=== PATIENT | female | born 1935 | race Two or more races ===

== ENCOUNTER → 2022-08-15 | Outpatient (CLI) | payer MEDICARE ==
--- NOTE | 2022-08-15 14:01 | US ---
EXAMINATION TYPE: US carotid duplex BILAT DATE OF EXAM: 08/15/2022 COMPARISON: NONE CLINICAL HISTORY: Z86.73 PERSONAL HX TRANSIENT ISCHEMIC ATTACK. TECHNIQUE: Carotid duplex ultrasound examination. Indirect Doppler criteria was utilized. FINDINGS: EXAM MEASUREMENTS: RIGHT: Peak Systolic Velocity (PSV) cm/sec ----- Right CCA: 59.0 ----- Right ICA: 86.4 ----- Right ECA: 129 ICA/CCA ratio: 1.4 RIGHT: End Diastole cm/sec ----- Right CCA: 11.8 ----- Right ICA: 19.3 ----- Right ECA: 14.9 LEFT: Peak Systolic Velocity (PSV) cm/sec ----- Left CCA: 76.1 ----- Left ICA: 67.1 ----- Left ECA: 58.5 ICA/CCA ratio: 0.9 LEFT: End Diastole cm/sec ----- Left CCA: 11.9 ----- Left ICA: 13.4 ----- Left ECA: 11.8 VERTEBRALS (direction of flow): Right Vertebral: Antegrade Left Vertebral: Antegrade Rhythm: some arrhythmia noted during real time imaging Some intimal thickening carotid vessel duval is evident. Mild atherosclerotic changes, no significant stenosis. IMPRESSION: 1. Atheromatous plaquing without significant flow-limiting stenosis. Criteria for Assigning % of Stenosis / Diameter reduction (Estimation based on the indirect measurements of the internal carotid artery velocities (ICA PSV). 1. Normal (no stenosis)=ICA PSV < 125 cm/s: ratio < 2.0: ICA EDV<40 cm/s. 2. Less than 50% stenosis=ICA PSV < 125 cm/s: ratio < 2.0: ICA EDV<40 cm/s. 3. 50 to 69% stenosis=ICA PSV of 125 to 230 cm/s: ration 2.0 ? 4.0: ICA EDV 40-100 cm/s. 4. Greater than 70% stenosis to near occlusion= ICA PSV > 230 cm/s: ratio > 4.0: ICA EDV > 100 cm/s. 5. Near occlusion= ICA PSV velocities may be low or undetectable: variable ratio and ICA EDV. 6. Total occlusion=unable to detect flow.
== END | disposition home or self-care (01) ==
LOC: RADUSWWP 13:19
PROVIDERS: ATTEND Family Medicine
DX: I65.23 Occlusion and stenosis of bilateral carotid arteries (principal); Z86.73 Personal history of transient ischemic attack (TIA), and cerebral infarction without residual deficits
CPT/HCPCS: 93880

== ENCOUNTER → 2022-08-21 | Outpatient (CLI) | payer MEDICARE ==
--- NOTE | 2022-08-22 17:29 | MR ---
EXAMINATION TYPE: MR cervical spine wo con DATE OF EXAM: 08/21/2022 INDICATION: Patient age:Female; 87 years old; Reason for study: M54.12 RADICULOPATHY CERVICAL REGION; Neck pain into fingers COMPARISON: None. TECHNIQUE: Multi planar, multi sequence imaging was performed utilizing: T1-weighted, T2-weighted, an d turbo inversion recovery imaging of the cervical spine. IV Contrast: None FINDINGS: Alignment: The cervical vertebral bodies have preserved heights. Alignment is within normal limits gi jacqui patient positioning. Bones: Multilevel disc degeneration changes with Modic endplate changes and disc space narrowing. Fin dings are worse from C3 through C7. Cord: The spinal cord is unremarkable with regards to their signal intensity and morphology. Discs: Multilevel disc space narrowing and Modic endplate changes. C2-C3: No significant disc pathology. The spinal canal is patent. No neural foraminal stenosis. C3-C4: A disc osteophyte complex is present with mild spinal canal stenosis. Bilateral facet and unc overtebral joint arthropathy are present with mild bilateral neural foraminal stenosis. C4-C5: A disc osteophyte complex is present with moderate spinal canal stenosis. Bilateral facet and uncovertebral joint arthropathy are present with mild bilateral neural foraminal stenosis. C5-C6: A disc osteophyte complex is present with moderate to severe spinal canal stenosis. The disc o steophyte complex does impress upon the cord and displaces it posteriorly. Bilateral facet and uncov ertebral joint arthropathy are present with moderate right and mild left neural foraminal stenosis. C6-C7: A disc osteophyte complex is present with moderate spinal canal stenosis. The disc osteophyte complex does impress upon the cord and displaces it posteriorly No neural foraminal stenosis. C7-T1: No significant disc pathology. The spinal canal is patent. No neural foraminal stenosis. Other: Paranasal sinus mucosal thickening worse in the maxillary sinuses. IMPRESSION: 1. Multilevel disc osteophyte complexes with moderate to severe spinal canal stenosis C5-C6 secondar y to osteophyte impresses upon the spinal cord anteriorly. Cord signal is maintained. 2. Multilevel disc degeneration changes with scattered neural foraminal stenosis worse with moderate right and C5-C6. 3. Moderate paranasal sinus disease.
== END | disposition home or self-care (01) ==
LOC: RADMRIMAIN 12:45
PROVIDERS: ATTEND Physician Assistant Medical
DX: M50.122 Cervical disc disorder at C5-C6 level with radiculopathy (principal); M25.78 Osteophyte, vertebrae; M48.02 Spinal stenosis, cervical region; M99.71 Connective tissue and disc stenosis of intervertebral foramina of cervical region; J34.89 Other specified disorders of nose and nasal sinuses
CPT/HCPCS: 72141

== ENCOUNTER → 2023-03-27 | Outpatient (CLI) | payer MEDICARE ==
--- NOTE | 2023-03-27 15:16 | CT ---
EXAMINATION TYPE: CT brain nancy dior DATE OF EXAM: 03/27/2023 COMPARISON: None HISTORY: pain after fall x few days ago. CT DLP: 1371.30 mGycm, Automated exposure control for dose reduction was used. CONTRAST: Patient injected with 0 mL of Isovue 300. CT of the brain is performed utilizing 3 mm thick sections through the posterior fossa and 3 mm thick sections through the remaining calvarium. Study is performed within 24 hours of arrival to the hospital. No abnormal hyperdensity is present to suggest an acute intracranial hemorrhage. No mass lesion is evident. No acute infarcts are evident. There is mild periventricular white matter hypodensity, likely on the basis of chronic white matter ischemic changes. Ventricles and sulci are appropriate for the patient age. There is mucosal thickening through the right maxillary sinus. Mild mucosal thickenings in the marketing communications specialist ior medial left maxillary sinus. Sphenoid sinuses and ethmoid air cells and frontal sinuses are clear . Mastoid air cells are clear IMPRESSIONS: 1. Chronic appearing Periventricular white matter ischemic type changes. 2. No acute intracranial process. Follow-up exams can be performed as clinically indicated. CT cervical spine. COMPARISON: None CT of the cervical spine is performed in the axial plane at 2 mm thick sections. Reconstructed image s in the coronal, and sagittal plane are reviewed on the computer. No acute fractures are evident. Vertebral body alignment is normal. Advanced degenerative disc changes are present C4-5 through C6-7. Some vacuum disc phenomenon is pres ent at these levels. Anterior vertebral body spurring is present C3-C7. Small posterior endplate spur s are present C3-4 through C6-7 Vertebral body heights are preserved. Endplate spurring at C3-4 has mild anterior thecal sac compression. Mild thecal sac compression is pr esent C4-5 C5-6. Some uncovertebral joint hypertrophy is present with minimal foraminal narrowing on the left at C6-7 bilaterally C5-6 and on the left at C4-5 IMPRESSIONS: 1. Degenerative disc changes within the cervical spine. 2. Bilateral foraminal narrowing from uncovertebral joint opportunity discussed above
== END | disposition home or self-care (01) ==
LOC: RADCTMAIN 14:31
PROVIDERS: ATTEND Family Medicine
DX: I67.82 Cerebral ischemia (principal); M47.812 Spondylosis without myelopathy or radiculopathy, cervical region; M50.321 Other cervical disc degeneration at C4-C5 level; M99.71 Connective tissue and disc stenosis of intervertebral foramina of cervical region; M46.02 Spinal enthesopathy, cervical region; W19.XXXA Unspecified fall, initial encounter; R90.82 White matter disease, unspecified
CPT/HCPCS: 70450; 72125

== ENCOUNTER → 2023-04-09 | Outpatient (CLI) | payer MEDICARE ==
[2023-04-09 15:33] LABS: African American GFR (CKD) 60 (>60 ml/min/1.73 sqM); Blood Urea Nitrogen 16 mg/dL (7-17); Non-African American GFR(CKD) 52 (>60 ml/min/1.73 sqM)
--- NOTE | 2023-04-09 17:10 | CT ---
EXAMINATION TYPE: CT abdomen pelvis w con DATE OF EXAM: 04/09/2023 COMPARISON: None INDICATION: c/o constipation DLP: 362.8 mGycm, Automated exposure control for dose reduction was used. CONTRAST: 80cc mL of Isovue 300. Study performed with Oral Contrast TECHNIQUE: Axial images were obtained from above the diaphragm to the pubic rami in the axial plane a t 5 mm thick sections. Reconstructed images are reviewed on the computer in the coronal plane. FINDINGS: Limited CT sections are obtained the lung bases. The lung bases are clear. CT ABDOMEN: Liver: Normal Spleen: Normal Pancreas: Normal Adrenal glands: The adrenal glands are normal. Gallbladder: Normal Kidneys: No masses are evident. No hydronephrosis is present. No cysts are present. Delayed images were obtained through the kidneys, which remain unremarkable. Aorta: Vascular calcification is within the aorta. Inferior vena cava: Normal. CT PELVIS: There is a left inguinal hernia with loops of bowel involvement. No obstruction is evident . Mild fecal debris is within the colon. No changes to suggest obstruction or significant retention. Loops of bowel within the abdomen and pelvis are normal. There are loops of bowel which are incom pletely distended or lack oral contrast limiting their evaluation. Appendix: Not visualized. No dilated appendix or inflammatory changes identified. Urinary bladder: Normal. Genitourinary structures: Uterus and ovaries are not identified. Osseous structures: No suspicious lytic or sclerotic lesions. Scoliosis and degenerative disc changes are through the thoracolumbar spine. IMPRESSIONS: 1. No suspicious acute changes. 2. Small left inguinal hernia with involvement loops of bowel. These are nonobstructive at the time o f this examination.
== END | disposition home or self-care (01) ==
LOC: RADCTMAIN 14:50
PROVIDERS: ATTEND Family Medicine
DX: K40.90 Unilateral inguinal hernia, without obstruction or gangrene, not specified as recurrent (principal)
CPT/HCPCS: 82565; 84520; 74177; 36415; Q9967

== ENCOUNTER → 2023-09-03 | Outpatient (CLI) | payer MEDICARE ==
--- NOTE | 2023-09-03 12:27 | XR ---
EXAMINATION TYPE: XR chest 2V DATE OF EXAM: 09/03/2023 COMPARISON: 09/03/2023 TECHNIQUE: PA and lateral views submitted. HISTORY: Cough FINDINGS: The lungs are clear and there is no pneumothorax, pleural effusion, or focal pneumonia. Heart size normal and no overt failure. Osseous structures demonstrate hypertrophic and degenerative changes of the spine. Atherosclerotic change of aorta. Biapical pleural thickening. There is AC joint arthropathy. Underlyi ng COPD. Age-indeterminate compression deformities in the thoracic spine. Pleural-based apical calcif ication can be associated with inhalational disease\asbestos related disease. IMPRESSION: 1. No acute process. 2. COPD. Apical pleural calcifications can be associated with inhalational\asbestos-related disease.
== END | disposition home or self-care (01) ==
LOC: RADXRMAIN 11:58
PROVIDERS: ATTEND Family Medicine
DX: J44.9 Chronic obstructive pulmonary disease, unspecified (principal); J94.8 Other specified pleural conditions
CPT/HCPCS: 71046

== ENCOUNTER → 2024-06-24 | Outpatient (CLI) | payer MEDICARE | END | disposition home or self-care (01) | LOC: RADMRIMAIN 18:41 | PROVIDERS: ATTEND Family Medicine | DX: R41.82 Altered mental status, unspecified (principal) | CPT/HCPCS: 70553; A9585 ==

== ENCOUNTER 2024-11-07 11:10 | Inpatient (IN) | payer MEDICARE ==
--- NOTE | 2024-11-07 11:35 | ED ---
Fall HPI - General Chief Complaint: Fall Stated Complaint: Fall Time Seen by Provider: 11/07/24 11:35 Source: patient, EMS Mode of arrival: EMS - History of Present Illness Initial Comments: 89-year-old female presented the ER via EMS for evaluation of fall. Patient states she was attempted to get into her vehicle after going to [place] when she accidentally lost her balance. She states she frequently loses her balance. She states her right leg collapsed underneath her. She denies any head injury, loss of consciousness. Patient is on eliquis for atrial fibrillation. Patient states she is unable to move or bear weight on her right leg. She denies any paresthesias to this extremity. Patient denies any chest pain, shortness of breath, dizziness or lightheadedness prior to fall. No other injuries or complaints at this time. - Related Data Home Medications Medication Instructions Recorded Confirmed Apixaban [Eliquis] 5 mg PO BID 11/07/24 11/07/24 Atorvastatin [Lipitor] 20 mg PO DAILY 11/07/24 11/07/24 Furosemide [Lasix] 20 mg PO DAILY 11/07/24 11/07/24 Metoprolol Tartrate [Lopressor] 25 mg PO BID 11/07/24 11/07/24 amLODIPine [Norvasc] 2.5 mg PO DAILY 11/07/24 11/07/24 Allergies Allergy/AdvReac Type Severity Reaction Status Date / Time shellfish derived [Shellfish] Allergy Rash/Hives Verified 11/07/24 12:48 Review of Systems ROS Statement: Those systems with pertinent positive or pertinent negative responses have been documented in the HPI. ROS Other: All systems not noted in ROS Statement are negative. Past Medical History Past Medical History: Atrial Fibrillation, CVA/TIA, Skin Disorder Additional Past Medical History / Comment(s): WOUND RT FOOT,SWELLING RT LEG/FOOT,PVD History of Any Multi-Drug Resistant Organisms: None Reported Past Surgical History: Section, Hysterectomy Additional Past Surgical History / Comment(s): RLE vein Ablation 12-01-14 Past Anesthesia/Blood Transfusion Reactions: No Reported Reaction Past Psychological History: No Psychological Hx Reported Smoking Status: Never smoker Past Alcohol Use History: Occasional Past Drug Use History: None Reported - Past Family History Mother Additional Family Medical History / Comment(s): PVD General Exam Limitations: no limitations General appearance: alert, in no apparent distress Head exam: Present: atraumatic, normocephalic, normal inspection Eye exam: Present: normal appearance, PERRL, EOMI. Absent: scleral icterus, conjunctival injection, periorbital swelling Respiratory exam: Present: normal lung sounds bilaterally. Absent: respiratory distress, wheezes, rales, rhonchi, stridor Cardiovascular Exam: Present: tachycardia, irregular rhythm, normal heart sounds GI/Abdominal exam: Present: soft, normal bowel sounds. Absent: distended, tenderness, guarding, rebound, rigid Extremities exam: Present: normal capillary refill (2+ bilateral DP and radial pulses), other (Right lower extremity is shortened and externally rotated. Negative straight leg roll bilaterally.) Neurological exam: Present: alert, oriented X3, CN II-XII intact Skin exam: Present: warm, dry, intact, normal color. Absent: rash Course Vital Signs 11/07/24 11/07/24 11:11 12:44 Temperature 97.6 F Pulse Rate 118 H 117 H Respiratory 18 18 Rate Blood Pressure 176/90 161/97 O2 Sat by Pulse 96 97 Oximetry - Reevaluation(s) Reevaluation #1: 11/07/24 12:47 Case discussed with Ankur Chavira PA-C, he will make Dr. Tabares aware. Requesting admission to [facility] with medicine on consult. Medical Decision Making - Medical Decision Making Was pt. sent in by a medical professional or institution ([facility], [facility] [employer], urgent care, hospital, or penitentiary...) When possible be specific @ -No Did you speak to anyone other than the patient for history (EMS, parent, family, police, friend...)? What history was obtained from this source @ -No Did you review nursing and triage notes (agree or disagree)? Why? @ -I reviewed and agree with nursing and triage notes Were old charts reviewed (outside hosp., previous admission, EMS record, old EKG, old radiological studies, urgent care reports/EKG's, penitentiary records)? Report findings @ -No old charts were reviewed Differential Diagnosis (chest pain, altered mental status, abdominal pain women, abdominal pain men, vaginal bleeding, weakness, fever, dyspnea, syncope, headache, dizziness, GI bleed, back pain, seizure, CVA, palpatations, mental health, musculoskeletal)? @ -Fracture, dislocation, contusion, hematoma, intracranial hemorrhage, concussion, abrasion, laceration this list does not like to be all-inclusive EKG interpreted by me (3pts min.). @ -As above X-rays interpreted by me (1pt min.). @ -Right hip AP pelvis x-ray interpreted by me showing a right IT fracture. Right knee x-ray interpreted me negative for acute process. CXR interpreted remain negative for focal consolidations, pneumothorax or pleural effusions. CT interpreted by me (1pt min.). @ -None done U/S interpreted by me (1pt. min.). @ -None done What testing was considered but not performed or refused? (CT, X-rays, U/S, labs)? Why? @ -None What meds were considered but not given or refused? Why? @ -None Did you discuss the management of the patient with other professionals (professionals i.e. , [facility], [facility] [employer], lab, RT, psych nurse, social work nurse, developing machine operator, teacher, senior commercial loan officer, family independence case manager)? Give summary @ -Yes, case discussed with orthopedicsAnkur PA-C. Patient will be admitted under Ankur Koch states he will make him aware, with medicine on consult. Was smoking cessation discussed for >3mins.? @ -No Was critical care preformed (if so, how long)? @ -No Were there social determinants of health that impacted care today? How? (Homelessness, low income, unemployed, alcoholism, drug addiction, transportation, low edu. Level, literacy, decrease access to med. care, [facility], rehab)? @ -No Was there de-escalation of care discussed even if they declined (Discuss DNR or withdrawal of care, Hospice)? DNR status @ -No What co-morbidities impacted this encounter? (DM, HTN, Smoking, COPD, CAD, Cancer, CVA, ARF, Chemo, Hep., AIDS, mental health diagnosis, sleep apnea, morbid obesity)? @ -Atrial fibrillation, history of CVA Was patient admitted / discharged? Hospital course, mention meds given and route , prescriptions, significant lab abnormalities, going to OR and other pertinent info. @ -Admitted.89-year-old female presented to the ER via EMS for evaluation of a fall. Upon arrival, patient is tachycardic at 118 bpm vitals otherwise within the septal limits. Tachycardia likely related to pain. Right lower extremity is shortened and externally rotated. Patient is neurovascularly intact. Patient denying any other injuries or complaints. Workup in the ER remarkable for a right IT fracture. Findings discussed with orthopedics, Ankur Chavira PA-C. Patient will be admitted under Dr. Tabares, Ankur will notify him, with medicine on consult. Preoperative labsp ordered. Patient given tylenol, IV Dilaudid and Zofran for pain control in the emergency department. Maria catheter ordered. Medicine on consult. Patient agreeable for admission. Case discussed with ED attending, Dr. Hawkins. Undiagnosed new problem with uncertain prognosis? @ -No Drug Therapy requiring intensive monitoring for toxicity (Heparin, Nitro, Insulin, Cardizem)? @ -No Were any procedures done? @ -No Diagnosis/symptom? @ -Right IT fracture/Fall Acute, or Chronic, or Acute on Chronic? @ -Acute Uncomplicated (without systemic symptoms) or Complicated (systemic symptoms)? @ -Complicated Side effects of treatment? @ -No Exacerbation, Progression, or Severe Exacerbation? @ -No Poses a threat to life or bodily function? How? (Chest pain, USA, VA, pneumonia, PE, COPD, DKA, ARF, appy, cholecystitis, CVA, Diverticulitis, Homicidal, Suicidal, threat to staff... and all critical care pts) @ -Possibly - Lab Data Result diagrams: 11/07/24 12:33 11/07/24 12:33 Lab Results 11/07/24 11/07/24 11/07/24 Range/Units 12:33 12:33 12:33 WBC 7.2 (3.8-10.6) k/uL RBC 4.96 (3.80-5.40) m/uL Hgb 13.7 (11.4-16.0) gm/dL Hct 42.0 (34.0-46.0) % MCV 84.7 (80.0-100.0) fL MCH 27.5 (25.0-35.0) pg MCHC 32.5 (31.0-37.0) g/dL RDW 14.2 (11.5-15.5) % Plt Count 146 L (150-450) k/uL MPV 7.2 Neutrophils % 70 % Lymphocytes % 25 % Monocytes % 2 % Eosinophils % 1 % Basophils % 0 % Neutrophils # 5.1 (1.3-7.7) k/uL Lymphocytes # 1.8 (1.0-4.8) k/uL Monocytes # 0.2 (0-1.0) k/uL Eosinophils # 0.1 (0-0.7) k/uL Basophils # 0.0 (0-0.2) k/uL PT 11.6 (10.0-12.5) sec INR 1.1 (<1.2) APTT 24.5 (22.0-30.0) sec Sodium 129 L (137-145) mmol/L Potassium 4.0 (3.5-5.1) mmol/L Chloride 96 L (98-107) mmol/L Carbon Dioxide 25 (22-30) mmol/L Anion Gap 8 mmol/L BUN 13 (7-17) mg/dL Creatinine 0.49 L (0.52-1.04) mg/dL Est GFR (CKD-EPI)AfAm >90 (>60 ml/min/1.73 sqM) Est GFR (CKD-EPI)NonAf 87 (>60 ml/min/1.73 sqM) Glucose 186 H (74-99) mg/dL Calcium 8.8 (8.4-10.2) mg/dL Total Bilirubin 1.2 (0.2-1.3) mg/dL AST 45 H (14-36) U/L ALT 37 H (4-34) U/L Alkaline Phosphatase 89 (38-126) U/L Total Protein 6.9 (6.3-8.2) g/dL Albumin 4.3 (3.5-5.0) g/dL - EKG Data -: EKG Interpreted by [place] EKG Comments: EKG taken at 11: 21 showing atrial fibrillation with RVR. Ventricular rate 111, MA interval 97, QT/QTc 338/404. - Radiology Data Radiology results: report reviewed, image reviewed Disposition Clinical Impression: Fall, Intertrochanteric fracture of right femur Disposition: ADMITTED IP TO THIS [facility] Condition: Stable Referrals: Andres White MD [Primary Care Provider] - 1-2 days Time of Disposition: 12:46
[2024-11-07] MEDS: ACETAMINOPHEN TAB 325 MG TAB PO STA (11:57)
--- NOTE | 2024-11-07 12:07 | XR ---
EXAMINATION TYPE: XR chest 1V DATE OF EXAM: 11/07/2024 COMPARISON: Chest x-ray September 03, 2023 CLINICAL INDICATION: Female, 89 years old with history of Trauma from fall; pain TECHNIQUE: Single frontal view of the chest is obtained. FINDINGS: There is chronic parenchymal change without suspicious lesions focal air space opacity, pl eural effusion, or pneumothorax seen. Cardiomegaly is redemonstrated. Osseous structures are deminera lized. IMPRESSION: Cardiomegaly without acute pulmonary process. [facility], , 11/07/2024 12:05 PM
--- NOTE | 2024-11-07 12:08 | XR ---
EXAMINATION TYPE: XR knee limited RT DATE OF EXAM: 11/07/2024 CLINICAL INDICATION: Female, 89 years old with history of fall, pain TECHNIQUE: 2 views of the knee were obtained. COMPARISON: None. FINDINGS: There is no acute fracture/dislocation evident in the right knee. Moderate to severe trico mpartment joint space loss without significant spurring. The overlying soft tissue appears unremarka ble. Osseous structures are demineralized. IMPRESSION: There is no acute fracture or dislocation in the the right knee. [facility], , 11/07/2024 12:06 PM
--- NOTE | 2024-11-07 12:11 | XR ---
EXAMINATION TYPE: XR Hip RT and AP Pelvis DATE OF EXAM: 11/07/2024 CLINICAL INDICATION: Female, 89 years old with history of fall, hip pain. TECHNIQUE: A single AP view of the pelvis is obtained. Two views of the right hip are obtained. COMPARISON: CT abdomen and pelvis April 09, 2023 FINDINGS: Osseous structures are demineralized. There is acute displaced intertrochanteric fracture of the righ t hip. No hip joint dislocation. Visualized pelvis is intact. Scoliosis in the lumbar spine is partia lly imaged. IMPRESSION: There is acute displaced intertrochanteric fracture of the right hip. [facility], , 11/07/2024 12:08 PM
[2024-11-07] MEDS: ONDANSETRON 4 MG/2 ML VIAL IVP STA (12:40)
[2024-11-07] MEDS: HYDROmorphone 1 MG/ML 1 ML SYRINGE IVP STA (12:41)
[2024-11-07 12:43] LABS: Basophils % (A) 0 %; Eosinophils # (A) 0.1 k/uL (0-0.7); Eosinophils % (A) 1 %; HGB 13.7 gm/dL (11.4-16.0); Lymphocytes # (A) 1.8 k/uL (1.0-4.8); Lymphocytes % (A) 25 %; MCH 27.5 pg (25.0-35.0); MCHC 32.5 g/dL (31.0-37.0); MCV 84.7 fL (80.0-100.0); Mean Platelet Volume 7.2; Monocytes # (A) 0.2 k/uL (0-1.0); Monocytes % (A) 2 %; Neutrophils # (A) 5.1 k/uL (1.3-7.7); Neutrophils % (A) 70 %; Platelet Count 146 k/uL (150-450); RBC 4.96 m/uL (3.80-5.40); RDW 14.2 % (11.5-15.5); WBC 7.2 k/uL (3.8-10.6)
[2024-11-07] MEDS ORDERED: NALOXONE 0.4 MG/ML 1 ML VIAL IV PRN (12:44)
[2024-11-07] MEDS ORDERED: HYDROmorphone 1 MG/ML 1 ML SYRINGE IVP PRN (12:44)
[2024-11-07 12:51] LABS: INR 1.1 (<1.2); Partial Thromboplastin Time 24.5 sec (22.0-30.0); Prothrombin Time 11.6 sec (10.0-12.5)
[2024-11-07 13:01] LABS: ALT 37 U/L (4-34); AST 45 U/L (14-36); African American GFR (CKD) >90 (>60 ml/min/1.73 sqM); Albumin 4.3 g/dL (3.5-5.0); Alkaline Phosphatase 89 U/L (38-126); Anion Gap 8 mmol/L; Blood Urea Nitrogen 13 mg/dL (7-17); Calcium 8.8 mg/dL (8.4-10.2); Carbon Dioxide 25 mmol/L (22-30); Chloride 96 mmol/L (98-107); Glucose 186 mg/dL (74-99); Non-African American GFR(CKD) 87 (>60 ml/min/1.73 sqM); Sodium 129 mmol/L (137-145); Total Bilirubin 1.2 mg/dL (0.2-1.3); Total Protein 6.9 g/dL (6.3-8.2)
--- NOTE | 2024-11-07 13:22 | P.HPOR ---
History of Present Illness H&P Date: 11/07/24 Chief Complaint: Right hip fracture Patient is a 89-year-old female who presented to [facility] emergency room today after sustaining a fall while getting in her car after sabianist. After the fall, she was unable to get up or weight-bear, EMS to bring patient to the hospital. Patient underwent multiple imaging and lab test, was determined she had a displaced right intertrochanteric femur fracture. I was contacted by the emergency room staff regarding this patient. Patient was evaluated in the emergency room, she is resting pleasantly with her son at bedside. Patient cannot remove the exact details of the fall but was unable to weight-bear on the right lower extremity. She denies any previous surgery to her right lower extremity. She notes most of her discomfort in the hip region with range of motion. She denies any left lower extremity pain at this time. She denies any bilateral upper extremity pain at this time. She denies any headaches, lightheadedness, chest pain, shortness of breath, nausea or vomiting. Patient does have a history of A-fib, she is on Eliquis. She does follow with a local stuffer. Patient does live alone in a condo, she normally drives on a daily basis. Review of Systems Constitutional: Reports as per HPI Past Medical History Past Medical History: Atrial Fibrillation, CVA/TIA, Skin Disorder Additional Past Medical History / Comment(s): WOUND RT FOOT,SWELLING RT LEG/FOOT,PVD History of Any Multi-Drug Resistant Organisms: None Reported Past Surgical History: Section, Hysterectomy Additional Past Surgical History / Comment(s): RLE vein Ablation 12-01-14 Past Anesthesia/Blood Transfusion Reactions: No Reported Reaction Past Psychological History: No Psychological Hx Reported Smoking Status: Never smoker Past Alcohol Use History: Occasional Past Drug Use History: None Reported - Past Family History Mother Additional Family Medical History / Comment(s): PVD Medications and Allergies Home Medications Medication Instructions Recorded Confirmed Type Apixaban [Eliquis] 5 mg PO BID 11/07/24 11/07/24 History Atorvastatin [Lipitor] 20 mg PO DAILY 11/07/24 11/07/24 History Furosemide [Lasix] 20 mg PO DAILY 11/07/24 11/07/24 History Metoprolol Tartrate [Lopressor] 25 mg PO BID 11/07/24 11/07/24 History amLODIPine [Norvasc] 2.5 mg PO DAILY 11/07/24 11/07/24 History Allergies Allergy/AdvReac Type Severity Reaction Status Date / Time shellfish derived [Shellfish] Allergy Rash/Hives Verified 11/07/24 12:48 Physical Examination Right lower extremity: No obvious open lesions or sores are visualized throughout the extremity, there is some mild ecchymosis and swelling near the right proximal thigh Slight shortening and external rotation of the extremity is noted compared to t he contralateral side Patient demonstrates pain with palpation to the proximal right thigh, she is nontender surrounding the knee, lower leg, foot or ankle Logroll maneuver does reproduce discomfort to the groin, she is unable to straight leg raise. Plantarflexion, dorsiflexion, EHL, FHL are intact. Knee extension and flexion were not assessed due to pain in the hip Calf is soft, no tenderness with palpation Sensory exam to light touch is intact throughout the extremity Dorsalis pedis pulses 2+ Results - Labs Labs: Abnormal Lab Results - Last 24 Hours (Table) 11/07/24 11/07/24 Range/Units 12:33 12:33 Plt Count 146 L (150-450) k/uL Sodium 129 L (137-145) mmol/L Chloride 96 L (98-107) mmol/L Creatinine 0.49 L (0.52-1.04) mg/dL Glucose 186 H (74-99) mg/dL AST 45 H (14-36) U/L ALT 37 H (4-34) U/L H & H 11/07/24 Range/Units 12:33 Hgb 13.7 (11.4-16.0) gm/dL Hct 42.0 (34.0-46.0) % Coagulation 11/07/24 Range/Units 12:33 INR 1.1 (<1.2) Result Diagrams: 11/07/24 12:33 11/07/24 12:33 - Diagnostic results Hip x-ray: report reviewed, image reviewed (Pelvis x-ray along with right hip x- rays were reviewed, displaced right intertrochanteric femur fracture ) Knee x-ray: report reviewed, image reviewed (X-rays reviewed of the right knee, no acute fractures or dislocations appreciated) Assessment and Plan Assessment: Displaced right intertrochanteric femur fracture Status post fall from standing A-fib Other medical comorbidities Plan: I was able to discuss the case, this to include physical exam findings and imaging studies my attending Dr. Tabares. We would like to proceed with surgical intervention more specifically a right intramedullary nail for fixation. Would like to proceed with surgery on 11/08/2024. Risk and benefits of the procedure were discussed with the patient and family, this to include blood loss, development of blood clots, neurovascular injury, infection, inadequate healing of bone, need for further surgery, pain and stiffness. They are in good understanding would like to proceed. Consent will be obtained prior to procedure Pain control, multiple medications will be ordered both oral and IV as needed DVT prophylaxis, hold Eliquis at this time, will resume after surgery N.p.o. after midnight Urinary catheter placement Nonweightbearing right lower extremity Medical and cardiac recommendations appreciated PT/OT after surgery Further recommendations to follow Time with Patient: Less than 30
--- NOTE | 2024-11-07 15:53 | P.CONS ---
History of Present Illness - Reason for Consult Consult date: 11/07/24 Medical Management Requesting physician: Rodri Tabares - History of Present Illness History of Presenting Illness: Patient is a very pleasant 89-year-old female with a past medical history of chronic atrial fibrillation on anticoagulation with Eliquis 5 mg twice daily follows with pump operator Dr. 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 She presented to the emergency department after a fall. Patient reported that she was walking to her vehicle after chart and when walking down the curb to get into her car she lost her balance secondary to her "chronic drag" of her right leg resulting in her falling onto her right hip. Patient adamantly denies hitting her head or having any loss of consciousness. She denies having any dizziness, lightheadedness, chest pain, palpitations, or shortness of breath occurring before or after fall. She reports only injury is to right hip reporting pain throughout right hip and down entire right leg. She denies having any numbness or tingling and is able to wiggle her toes without difficulties. Upon arrival to our facility, patient underwent evaluation in the emergency department. Vital signs upon arrival show blood pressure 176/90, heart rate 118, respiratory rate 18, temp 97.6 F, and SpO2 of 96% on room air. EKG was completed showing atrial fibrillation with RVR to 111 bpm. Chest x-ray completed revealing cardiomegaly but negative for acute cardiopulmonary process. X-ray right knee negative for acute fracture or dislocation. X-ray right hip showing acute displaced intertrochanteric fracture of the right hip. Labs completed and reviewed. CBC showing mild thrombocytopenia with platelet count of 146 otherwise normal findings. Coagulation profile normal finding. BMP showing hyponatremic hypochloremia with sodium of 129 and chloride of 96 otherwise normal findings. Blood glucose was elevated at 186 patient was admitted under orthopedic surgery team and we were consulted for medical clearance and medical management throughout hospitalization and pump operator was consulted for cardiac clearance. Review of systems: Pertinent positives and negatives as discussed in HPI, a complete review of systems was performed and all other systems are negative. Physical exam: Vital signs reviewed and stable with the exception of mild hypertension and tachycardia. General: Nontoxic, no distress and appears stated age. Derm: Skin warm and dry, normal coloration for ethnicity. Head: Atraumatic, normocephalic and symmetric. Eyes: EOM's intact, no lid lag, and anicteric sclera Mouth: no lip lesions, mucus membranes moist Cardiovascular: Irregularly irregular rhythm, systolic murmur, positive posterior tibial pulses bilaterally, and cap refill < 2 seconds. Lungs: Respirations even, regular, and unlabored on room air. Lungs CTA bilater ally, no rhonchi, no rales, no wheezing, and no accessory muscle usage. Abdominal: soft, nontender to palpation, no guarding, no appreciable organomegaly Ext: No gross muscle atrophy, no edema, no contractures. Sensation intact. Patient with restricted movement of right lower extremity due to acute fracture, she remains able to wiggle toes and foot. She has positive right lower extremity shortening and lateral rotation. Bilateral lower extremities with venous stasis discoloration and multiple varicose veins. Neuro: Speech slightly slowed to response (reported chronic from previous CVA), face symmetrical and CN II-XII grossly intact with no noted focal neuro deficits Psych: Alert and oriented to person, place, time, and situation. Appropriate and pleasant affect. Assessment and Plan of Care: Preoperative clearance Acute displaced intertrochanteric fracture of right hip -RN communication order placed to request records from [facility] for Echocardiogram that pt reports was completed in office the end of August or beginning of September this year. -METS score greater than 4. Revised cardiac risk index score is 1 for history of CVA as patient denies history of CAD or previous IA, history of CHF, history of diabetes, or history of chronic kidney disease and renal function currently normal findings. -NSQIP surgical risk score calculated. Patient at below average risk for serious complications at 9.2% with average risk being 11.5%, below average risk for cardiac complication at 1.9% with average risk being 2.3%, average risk of at 3.4% with average risk of 3.6%. -Secondary to patient's age, current anticoagulant use and underlying comorbidities she is at an increased risk to undergo surgical intervention, however there are no absolute contraindications for patient to undergo urgent repair of her displaced intertrochanteric right hip fracture. Recommend obtaining records from [facility] for recent echocardiogram and cardiology was consulted by primary admitting team for cardiac clearance. Pending cardiac clearance and slight improvement of sodium level to goal of 130, patient medically optimized to undergo surgical repair at this time. 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 -Hold Eliquis secondary to impending surgical repair of right hip. Patient gi jacqui a one-time dose of metoprolol 25 mg p.o. as she did not take her morning medications and to resume cardiac medication regimen with amlodipine 2.5 mg daily, atorvastatin 20 mg daily, and metoprolol 25 mg twice daily. -Recommend resuming Eliquis after completion of surgery once cleared by primary admitting orthopedic surgery team to resume. -Patient will require continuous telemetry monitoring during preoperative, intraoperative, and postoperative period. Hypochloremic hyponatremia -Patient reports taking Lasix for her peripheral vascular disease which is currently held at this time and patient placed on gentle IV fluid hydration with 0.9% normal saline at 50 cc/h. Acutely displaced intertrochanteric fracture of right hip -Strict bedrest, activity to be advanced after completion of surgical procedure as indicated by primary admitting orthopedic surgery team. -Insert Maria catheter for required immobilization needed for pending surgery. -Symptomatic care and pain management with Tylenol 650 mg every 6 hours as needed for mild pain, Pendroy 5/325 mg tablets every 6 hours as needed for moderate pain, and Dilaudid 0.5 mg every 4 hours as needed for severe pain. -Continue Zofran 4 mg IVP every 8 hours as needed for nausea or vomiting Data and imaging reviewed: As stated above in HPI Thank you for allowing us to participate in the care of this pleasant patient. Do not hesitate to contact us with questions. Someone can be reached from the [facility] hospitalist group all hours of the day at [phone] or via [employer]. Patient was seen independently by Nurse Practitioner. This document was prepared using [employer] dictation software. Please allow for errors in assistant media planner while rare they do occur. Sagar Mina NP rendered care for this patient independently, reviewed the findings and plan as documented in the note above and agree with plan. I did not physically speak with or examine the patient on this date. Past Medical History Past Medical History: Atrial Fibrillation, CVA/TIA, Skin Disorder Additional Past Medical History / Comment(s): WOUND RT FOOT,SWELLING RT LEG/FOOT,PVD History of Any Multi-Drug Resistant Organisms: None Reported Past Surgical History: Section, Hysterectomy Additional Past Surgical History / Comment(s): RLE vein Ablation 12-01-14 Past Anesthesia/Blood Transfusion Reactions: No Reported Reaction Past Psychological History: No Psychological Hx Reported Smoking Status: Never smoker Past Alcohol Use History: Occasional Past Drug Use History: None Reported - Past Family History Mother Additional Family Medical History / Comment(s): PVD Medications and Allergies Home Medications Medication Instructions Recorded Confirmed Type Apixaban [Eliquis] 5 mg PO BID 11/07/24 11/07/24 History Atorvastatin [Lipitor] 20 mg PO DAILY 11/07/24 11/07/24 History Furosemide [Lasix] 20 mg PO DAILY 11/07/24 11/07/24 History Metoprolol Tartrate [Lopressor] 25 mg PO BID 11/07/24 11/07/24 History amLODIPine [Norvasc] 2.5 mg PO DAILY 11/07/24 11/07/24 History Allergies Allergy/AdvReac Type Severity Reaction Status Date / Time shellfish derived [Shellfish] Allergy Rash/Hives Verified 11/07/24 12:48 Physical Exam Vitals: Vital Signs Temp Pulse Resp BP Pulse Ox 11/07/24 14:00 99.2 F 104 H 18 134/82 92 L 11/07/24 12:44 117 H 18 161/97 97 11/07/24 11:11 97.6 F 118 H 18 176/90 96 Intake and Output 11/07/24 11/07/24 11/07/24 06:59 14:59 22:59 Other: Weight 52.163 kg Results CBC & Chem 7: 11/07/24 12:33 11/07/24 12:33 Labs: Abnormal Lab Results - Last 24 Hours (Table) 11/07/24 11/07/24 Range/Units 12:33 12:33 Plt Count 146 L (150-450) k/uL Sodium 129 L (137-145) mmol/L Chloride 96 L (98-107) mmol/L Creatinine 0.49 L (0.52-1.04) mg/dL Glucose 186 H (74-99) mg/dL AST 45 H (14-36) U/L ALT 37 H (4-34) U/L
[2024-11-07] MEDS: METOPROLOL TARTRATE 25 MG TAB PO STA (16:11)
[2024-11-07] MEDS: SODIUM CHLORIDE 0.9% 1,000 ML IV SCH (16:42)
[2024-11-07] MEDS ORDERED: DEXTROSE 50% SYRINGE 50 ML IVP PRN ×2 (17:11)
[2024-11-07] MEDS: HYDROmorphone 0.5 MG/0.5 ML SYRINGE IVP PRN (20:12)
[2024-11-07] MEDS: METOPROLOL TARTRATE 25 MG TAB PO SCH (20:12)
[2024-11-08 00:19] LABS: Glucose,Whole Blood 128 mg/dL (70-110)
[2024-11-08] MEDS: HYDROcodone/APAP 7.5-325MG 1 EACH TAB PO PRN (02:19)
[2024-11-08 06:16] LABS: Glucose,Whole Blood 106 mg/dL (70-110)
--- NOTE | 2024-11-08 07:05 | XR ---
EXAMINATION TYPE: XR chest 1V portable DATE OF EXAM: 11/08/2024 6:49 AM COMPARISON: Chest radiographs from 11/07/2024 CLINICAL INDICATION: Female, 89 years old with history of cough; TECHNIQUE: XR chest 1V portable Frontal view of the chest. FINDINGS: Lungs/Pleura: Scattered subtle reticular and hazy opacities. No evidence of pneumothorax, focal conso lidation or pleural effusion. Pulmonary vascularity: Unremarkable. Heart/mediastinum: Cardiomediastinal silhouette is unremarkable. Atherosclerotic calcifications are seen in the aorta. Musculoskeletal: No acute osseous pathology. Other findings: No IMPRESSION: Subtle scattered opacities which may represent an atypical pneumonia. Correlate for covid 19. [facility], , 11/08/2024 7:02 AM
[2024-11-08 08:38] LABS: HCT 32.3 % (37.2-46.3); HGB 10.7 g/dL (12.0-15.0); MCH 28.1 pg (27.0-32.0); MCHC 33.1 g/dL (32.0-37.0); MCV 84.8 FL (80.0-97.0); Mean Platelet Volume 10.1 FL (9.5-12.2); NRBC Per 100 WBC 0 X 10*3/uL (0.00-0.01); Platelet Count 131 X 10*3/uL (140-440); RBC 3.81 X 10*6/uL (4.10-5.20); RDW 14.8 % (11.5-14.5); WBC 6.72 X 10*3/uL (4.50-10.00)
--- NOTE | 2024-11-08 08:41 | P.CRDCN ---
History of Present Illness History of present illness: HISTORY OF PRESENT ILLNESS: This is a 89-year-old female with a past medical history significant for atrial fibrillation, mitral regurgitation, and hypertension. Patient follows in the of [facility] with Dr. Mcgraw. We have been asked to see the patient in consultation for cardiac clearance. Patient examined at the bedside. Patient was going to synagogue yesterday when she lost her balance trying to get out of her car and fell. She denies any syncope. Denies chest pain or pressure. Denied having any shortness of breath. The patient was found to have right hip fracture and is scheduled to undergo surgical intervention this afternoon. The patient does report feeling congested this morning. She was also febrile with a temperature of 100.1 F. DIAGNOSTICS: - EKG reveals A-fib with RVR. - Chest xray subtle scattered opacities which may represent atypical pneumonia - Laboratory data: WBC 7.2. Hemoglobin 13.7. Platelet count 146. Sodium 129. Potassium 4.0. BUN 13. Creatinine 0.49. - Current home cardiac medications include Eliquis 5 mg twice a day, Lipitor 20 mg daily, metoprolol tartrate 25 mg twice a day, amlodipine 2.5 mg daily, and Lasix 20 mg daily. - Most recent echocardiogram obtained in the office in March 2024 revealed ejection fraction 55 to 60%, mild aortic regurgitation, moderate MR, moderate TR - Patient underwent Lexiscan stress test in November 2021 which was negative for ischemia REVIEW OF SYSTEMS: At the time of my exam: CONSTITUTIONAL: Denies fever or chills. HEENT: Denies blurred vision, vision changes, or eye pain. Denies hemoptysis CARDIOVASCULAR: Denies chest pain. Denies orthopnea. Denies PND. Denies palpitations RESPIRATORY: Denies shortness of breath. GASTROINTESTINAL: Denies abdominal pain. Denies nausea or vomiting. HEMATOLOGIC: Denies bleeding disorders. GENITOURINARY: Denies any blood in urine. SKIN: Denies pruitis. Denies rash. PHYSICAL EXAM: VITAL SIGNS: Reviewed. GENERAL: Well-developed in no acute distress. HEENT: Head is normocephalic. Pupils are equal, round. Sclerae anicteric. Mucous membranes of the mouth are moist. Neck supple. No JVD or thyromegaly LUNGS: Respirations even and unlabored. Lungs with bilateral wheezing noted HEART: Mildly tachycardic. Irregular rate and rhythm. S1 and S2 heard. Systolic murmur noted at the apex ABDOMEN: Soft. Nondistended. Nontender. EXTREMITIES: Normal range of motion. No clubbing or cyanosis. Peripheral pulses intact. No lower extremity edema NEUROLOGIC: Awake and alert. Oriented x 3. ASSESSMENT: Right hip fracture, status post mechanical fall Persistent atrial fibrillation Moderate mitral regurgitation Moderate tricuspid regurgitation History of hypertension Hyponatremia PLAN: No need to repeat echocardiogram as this was performed in the office in March 2024 Hold Eliquis due to pending surgical intervention Continue metoprolol. Increase dosage to 50 mg twice a day for optimal heart rate control Check patient for COVID, RSV, and influenza There are no absolute contraindications for patient to proceed with surgery from a cardiac standpoint Further recommendations pending patient course Nurse practitioner note has been reviewed by physician. Signing provider agrees with the documented findings, assessment, and plan of care documented by CONTRACT GRAPHIC DESIGNER as a scribe. Past Medical History Past Medical History: Atrial Fibrillation, CVA/TIA, Skin Disorder Additional Past Medical History / Comment(s): WOUND RT FOOT,SWELLING RT LEG/FOOT,PVD History of Any Multi-Drug Resistant Organisms: None Reported Past Surgical History: Section, Hysterectomy Additional Past Surgical History / Comment(s): RLE vein Ablation 12-01-14 Past Anesthesia/Blood Transfusion Reactions: No Reported Reaction Past Psychological History: No Psychological Hx Reported Smoking Status: Never smoker Past Alcohol Use History: Occasional Past Drug Use History: None Reported - Past Family History Mother Additional Family Medical History / Comment(s): PVD Medications and Allergies Home Medications Medication Instructions Recorded Confirmed Type Apixaban [Eliquis] 5 mg PO BID 11/07/24 11/07/24 History Atorvastatin [Lipitor] 20 mg PO DAILY 11/07/24 11/07/24 History Furosemide [Lasix] 20 mg PO DAILY 11/07/24 11/07/24 History Metoprolol Tartrate [Lopressor] 25 mg PO BID 11/07/24 11/07/24 History amLODIPine [Norvasc] 2.5 mg PO DAILY 11/07/24 11/07/24 History Allergies Allergy/AdvReac Type Severity Reaction Status Date / Time shellfish derived [Shellfish] Allergy Rash/Hives Verified 11/07/24 12:48 Physical Exam Vitals: Vital Signs Temp Pulse Pulse Resp BP BP Pulse Ox 11/08/24 01:57 100.1 F H 114 H 18 143/71 90 L 11/07/24 19:41 99.8 F H 105 H 16 152/80 93 L 11/07/24 14:48 98.9 F 125 H 18 164/89 98 11/07/24 14:00 99.2 F 104 H 18 134/82 92 L 11/07/24 12:44 117 H 18 161/97 97 11/07/24 11:11 97.6 F 118 H 18 176/90 96 Intake and Output 11/07/24 11/08/24 11/08/24 22:59 06:59 14:59 Output Total 700 700 Balance -700 -700 Output: Urine 700 700 Other: Voiding Method Indwelling Catheter Results 11/07/24 12:33 11/07/24 12:33 Cardiac Enzymes 11/07/24 Range/Units 12:33 AST 45 H (14-36) U/L Coagulation 11/07/24 Range/Units 12:33 PT 11.6 (10.0-12.5) sec APTT 24.5 (22.0-30.0) sec CBC 11/07/24 Range/Units 12:33 WBC 7.2 (3.8-10.6) k/uL RBC 4.96 (3.80-5.40) m/uL Hgb 13.7 (11.4-16.0) gm/dL Hct 42.0 (34.0-46.0) % Plt Count 146 L (150-450) k/uL Comprehensive Metabolic Panel 11/07/24 Range/Units 12:33 Sodium 129 L (137-145) mmol/L Potassium 4.0 (3.5-5.1) mmol/L Chloride 96 L (98-107) mmol/L Carbon Dioxide 25 (22-30) mmol/L BUN 13 (7-17) mg/dL Creatinine 0.49 L (0.52-1.04) mg/dL Glucose 186 H (74-99) mg/dL Calcium 8.8 (8.4-10.2) mg/dL AST 45 H (14-36) U/L ALT 37 H (4-34) U/L Alkaline Phosphatase 89 (38-126) U/L Total Protein 6.9 (6.3-8.2) g/dL Albumin 4.3 (3.5-5.0) g/dL Current Medications Generic Name Dose Route Start Last Admin Trade Name Freq PRN Reason Stop Dose Admin Acetaminophen 650 mg 11/07/24 12:44 Acetaminophen Tab 325 Mg Tab PO Q6HR PRN Mild Pain or Fever > 100.5 Acetaminophen/Codeine Phosphate 1 each 11/07/24 13:23 Acetaminophen-Codeine 300-30mg Tab PO Q6HR PRN Pain Scale 3 To 5 Hydrocodone Bitart/Acetaminophen 1 each 11/07/24 13:22 Hydrocodone/Apap 5-325mg 1 Each Tab PO Q6HR PRN Pain Scale 6-8 Hydrocodone Bitart/Acetaminophen 1 each 11/07/24 13:22 11/08/24 02:19 Hydrocodone/Apap 7.5-325mg 1 Each Tab PO 1 each Q6HR PRN Administration Pain Scale 9-10 Amlodipine Besylate 2.5 mg 11/08/24 09:00 Amlodipine 2.5 Mg Tab PO DAILY [facility] Atorvastatin Calcium 20 mg 11/08/24 09:00 Atorvastatin 20 Mg Tab PO DAILY [facility] Cyclobenzaprine HCl 5 mg 11/07/24 13:23 Cyclobenzaprine 5 Mg Tab PO BID PRN Muscle Spasm Dextrose/Water 25 ml 11/07/24 17:11 Dextrose 50% Syringe 50 Ml IVP PER PROTOCOL PRN Hypoglycemia Protocol Dextrose/Water 50 ml 11/07/24 17:11 Dextrose 50% Syringe 50 Ml IVP PER PROTOCOL PRN Hypoglycemia Protocol Hydromorphone HCl 0.5 mg 11/07/24 13:24 11/08/24 00:12 Hydromorphone 0.5 Mg/0.5 Ml Syringe IVP 0.5 mg Q4HR PRN Administration Severe Pain (Scale 7 to 10) Sodium Chloride 1,000 mls @ 50 mls/hr 11/07/24 12:45 11/07/24 16:42 Saline 0.9% IV 50 mls/hr .Q20H [facility] Administration Metoprolol Tartrate 50 mg 11/08/24 09:00 Metoprolol Tartrate 50 Mg Tab PO BID [facility] Naloxone HCl 0.2 mg 11/07/24 12:44 Naloxone 0.4 Mg/Ml 1 Ml Vial IV Q2M PRN Opioid Reversal Ondansetron HCl 4 mg 11/07/24 12:44 Ondansetron 4 Mg/2 Ml Vial IVP Q8HR PRN Nausea And Vomiting Senna/Docusate Sodium 1 each 11/08/24 09:00 Sennosides-Docusate Sodium 1 Each Tab PO DAILY [facility] Intake and Output 11/07/24 11/08/24 11/08/24 22:59 06:59 14:59 Output Total 700 700 Balance -700 -700 Output: Urine 700 700 Other: Voiding Method Indwelling Catheter 11/07/24 12:33 11/07/24 12:33
[2024-11-08] MEDS: amLODIPine 2.5 MG TAB PO SCH (08:53)
[2024-11-08] MEDS: METOPROLOL TARTRATE 50 MG TAB PO SCH (08:54)
[2024-11-08] MEDS ORDERED: FUROSEMIDE 20 MG TAB PO SCH (09:00)
[2024-11-08 09:28] LABS: ALT 29 U/L (8-44); AST 37 U/L (13-35); Albumin 3.5 g/dL (3.8-4.9); Albumin/Globulin Ratio 2.19 Ratio (1.60-3.17); Alkaline Phosphatase 80 U/L (41-126); Blood Urea Nitrogen 9.3 mg/dL (9.0-27.0); Calcium 7.9 mg/dL (8.7-10.3); Carbon Dioxide 21.8 mmol/L (21.6-31.8); Chloride 98 mmol/L (96-109); Globulin 1.6 g/dL (1.6-3.3); Glucose 116 mg/dL (70-110); Magnesium 1.7 mg/dL (1.5-2.4); Potassium 3.8 mmol/L (3.5-5.5); Sodium 128 mmol/L (135-145); Total Bilirubin 0.7 mg/dL (0.3-1.2); Total Protein 5.1 g/dL (6.2-8.2)
[2024-11-08 09:55] LABS: Influenza A Not Detected (Not Detectd); Influenza B Not Detected (Not Detectd); RSV Not Detected (Not Detectd)
--- NOTE | 2024-11-08 09:57 | P.PN ---
Subjective Progress Note Date: 11/08/24 Principal diagnosis: Displaced right intertrochanteric femur fracture Patient evaluated at bedside, she is resting comfortably in her hospital bed. Pain is controlled with current medications. She has been seen by both internal medicine and cardiology. Surgery is scheduled for later this afternoon. She will remain n.p.o. at this time Objective - Vital Signs Vital signs: Vital Signs Temp 98.7 F 11/08/24 06:50 Pulse 68 11/08/24 06:50 Resp 17 11/08/24 06:50 BP 127/67 11/08/24 06:50 Pulse Ox 93 L 11/08/24 06:50 FiO2 Intake & Output 11/07/24 11/08/24 11/08/24 18:59 06:59 18:59 Output Total 700 700 Balance -700 -700 Weight 52.163 kg Output: Urine 700 700 Other: Voiding Method Indwelling Catheter - Exam Right lower extremity: No obvious open lesions or sores are visualized throughout the extremity, there is some mild ecchymosis and swelling near the right proximal thigh Slight shortening and external rotation of the extremity is noted compared to the contralateral side Patient demonstrates pain with palpation to the proximal right thigh, she is nontender surrounding the knee, lower leg, foot or ankle Logroll maneuver does reproduce discomfort to the groin, she is unable to straight leg raise. Plantarflexion, dorsiflexion, EHL, FHL are intact. Knee extension and flexion were not assessed due to pain in the hip Calf is soft, no tenderness with palpation Sensory exam to light touch is intact throughout the extremity Dorsalis pedis pulses 2+ - Labs CBC & Chem 7: 11/08/24 03:26 11/08/24 03:26 Labs: Abnormal Lab Results - Last 24 Hours (Table) 11/07/24 11/07/24 11/08/24 Range/Units 12:33 12:33 00:18 RBC (4.10-5.20) X 10*6/uL Hgb (12.0-15.0) g/dL Hct (37.2-46.3) % RDW (11.5-14.5) % Plt Count 146 L (150-450) k/uL Sodium 129 L (137-145) mmol/L Chloride 96 L (98-107) mmol/L Creatinine 0.49 L (0.52-1.04) mg/dL Glucose 186 H (74-99) mg/dL POC Glucose (mg/dL) 128 H (70-110) mg/dL Calcium (8.7-10.3) mg/dL AST 45 H (14-36) U/L ALT 37 H (4-34) U/L Total Protein (6.2-8.2) g/dL Albumin (3.8-4.9) g/dL 11/08/24 11/08/24 Range/Units 03:26 03:26 RBC 3.81 L (4.10-5.20) X 10*6/uL Hgb 10.7 L (12.0-15.0) g/dL Hct 32.3 L (37.2-46.3) % RDW 14.8 H (11.5-14.5) % Plt Count 131 L (150-450) k/uL Sodium 128 L (137-145) mmol/L Chloride (98-107) mmol/L Creatinine 0.5 L (0.52-1.04) mg/dL Glucose 116 H (74-99) mg/dL POC Glucose (mg/dL) (70-110) mg/dL Calcium 7.9 L (8.7-10.3) mg/dL AST 37 H (14-36) U/L ALT (4-34) U/L Total Protein 5.1 L (6.2-8.2) g/dL Albumin 3.5 L (3.8-4.9) g/dL Assessment and Plan Assessment: Displaced right intertrochanteric femur fracture Status post fall from standing A-fib Other medical comorbidities Plan: Surgery will be later this afternoon Pain control, multiple medications will be ordered both oral and IV as needed DVT prophylaxis, hold Eliquis at this time, will resume after surgery N.p.o. after midnight Urinary catheter placement Nonweightbearing right lower extremity Medical and cardiac recommendations appreciated PT/OT after surgery Further recommendations to follow Time with Patient: Less than 30
[2024-11-08 11:41] LABS: Glucose,Whole Blood 115 mg/dL (70-110)
[2024-11-08] MEDS: ATORVASTATIN 20 MG TAB PO SCH (13:02)
[2024-11-08] MEDS: SENNOSIDES-DOCUSATE SODIUM 1 EACH TAB PO SCH (13:02)
[2024-11-08] MEDS: IV FLUID CONTINUATION 1,000 ML IV ONE (14:34)
[2024-11-08] MEDS: ONDANSETRON 4 MG/2 ML VIAL IVP PRN (15:06)
[2024-11-08] MEDS: DEXAMETHASONE SOD PHOSPHATE 4 MG/ML 1 ML VIAL IVP STA (15:07)
[2024-11-08] MEDS ORDERED: ROCURONIUM 10 MG/ML (5 ML VIAL) IV ONE (15:51)
[2024-11-08] MEDS ORDERED: MIDAZOLAM 2 MG/2 ML VIAL ONE (15:51)
[2024-11-08] MEDS ORDERED: LIDOCAINE 1% INJ 10MG/ML (20 ML MDV) ONE (15:51)
[2024-11-08] MEDS ORDERED: PHENYLEPHRINE-0.9% NACL SYG 1,000 MCG/10 ML SYRINGE ONE (15:51)
[2024-11-08] MEDS ORDERED: GLYCOPYRROLATE 0.2 MG/ML 2 ML VIAL ONE (15:51)
[2024-11-08] MEDS ORDERED: TRANEXAMIC 1,000 MG/100ML-NACL PREMIX BAG ONE (15:51)
[2024-11-08] MEDS ORDERED: NEOSTIGMINE 1 MG/ML 10 ML VIAL ONE (15:51)
[2024-11-08] MEDS ORDERED: KETAMINE HCL IN 0.9 % NACL 50 MG/5 ML SYRINGE ONE (15:51)
[2024-11-08] MEDS ORDERED: SUCCINYLCHOLINE CHLORIDE 200 MG/10 ML VIAL IV ONE (15:51)
[2024-11-08] MEDS ORDERED: fentaNYL (PF) 50 MCG/ML 2 ML AMP ONE (15:51)
[2024-11-08] MEDS ORDERED: PROPOFOL 10 MG/ML 20 ML VIAL IV ONE (15:51)
[2024-11-08] MEDS: LACTATED RINGERS 1,000 ML IV ONE (15:52)
[2024-11-08] MEDS: SODIUM CHLORIDE 0.9% 100 ML with ceFAZolin 1,000 MG IV ONE (15:56)
[2024-11-08] MEDS ORDERED: IPRATROPIUM-ALBUTEROL 3 ML NEB INHALATION PRN (15:58)
--- NOTE | 2024-11-08 16:02 | P.PN ---
Subjective Progress Note Date: 11/08/24 Hospital course: Patient is a very pleasant 89-year-old female with a past medical history of chronic atrial fibrillation on anticoagulation with Eliquis 5 mg twice daily follows with labor relations officer Dr. 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 She presented to the emergency department after a fall. Patient reported that she was walking to her vehicle after chart and when walking down the curb to get into her car she lost her balance secondary to her "chronic drag" of her right leg resulting in her falling onto her right hip. Patient adamantly denies hitting her head or having any loss of consciousness. She denies having any dizziness, lightheadedness, chest pain, palpitations, or shortness of breath occurring before or after fall. She reports only injury is to right hip reporting pain throughout right hip and down entire right leg. She denies having any numbness or tingling and is able to wiggle her toes without difficulties. Upon arrival to our facility, patient underwent evaluation in the emergency department. Vital signs upon arrival show blood pressure 176/90, heart rate 118, respiratory rate 18, temp 97.6 F, and SpO2 of 96% on room air. EKG was completed showing atrial fibrillation with RVR to 111 bpm. Chest x-ray completed revealing cardiomegaly but negative for acute cardiopulmonary process. X-ray right knee negative for acute fracture or dislocation. X-ray right hip showing acute displaced intertrochanteric fracture of the right hip. Labs completed and reviewed. CBC showing mild thrombocytopenia with platelet count of 146 otherwise normal findings. Coagulation profile normal finding. BMP showing hyponatremic hypochloremia with sodium of 129 and chloride of 96 otherwise normal findings. Blood glucose was elevated at 186 patient was admitted under orthopedic surgery team and we were consulted for medical clearance and medical management throughout hospitalization and labor relations officer was consulted for cardiac clearance. Physical exam: Patient seen full evaluated at bedside this morning. She reports moderate throbbing in right hip and down right leg otherwise denies any other complaints including headache, lightheadedness, dizziness, chest pain, palpitations, shortness of breath, or cough. She denies having any numbness in her extremities. Maria catheter in place. Vital signs reviewed and stable with the exception of mild hypertension and tachycardia. General: Nontoxic, no distress and appears stated age. Derm: Skin warm and dry, normal coloration for ethnicity. Head: Atraumatic, normocephalic and symmetric. Eyes: EOM's intact, no lid lag, and anicteric sclera Mouth: no lip lesions, mucus membranes moist Cardiovascular: Irregularly irregular rhythm, systolic murmur, positive posterior tibial pulses bilaterally, and cap refill < 2 seconds. Lungs: Respirations even, regular, and unlabored on room air. Lungs CTA bilaterally, no rhonchi, no rales, no wheezing, and no accessory muscle usage. Abdominal: soft, nontender to palpation, no guarding, no appreciable organomegaly Ext: No gross muscle atrophy, no edema, no contractures. Sensation intact. Patient with restricted movement of right lower extremity due to acute fracture, she remains able to wiggle toes and foot. She has positive right lower extremity shortening and lateral rotation. Bilateral lower extremities with ve nous stasis discoloration and multiple varicose veins. Neuro: Speech slightly slowed to response (reported chronic from previous CVA), face symmetrical and CN II-XII grossly intact with no noted focal neuro deficits Psych: Alert and oriented to person, place, time, and situation. Appropriate and pleasant affect. Assessment and Plan of Care: Preoperative clearance Acute displaced intertrochanteric fracture of right hip -METS score greater than 4. Revised cardiac risk index score is 1 for history of CVA as patient denies history of CAD or previous [place], history of CHF, history of diabetes, or history of chronic kidney disease and renal function currently normal findings. -NSQIP surgical risk score calculated. Patient at below average risk for serious complications at 9.2% with average risk being 11.5%, below average risk for cardiac complication at 1.9% with average risk being 2.3%, average risk of at 3.4% with average risk of 3.6%. -Secondary to patient's age, current anticoagulant use and underlying comorbidities she is at an increased risk to undergo surgical intervention, however there are no absolute contraindications for patient to undergo urgent repair of her displaced intertrochanteric right hip fracture. Discussed with cardiology WIREWORKER echocardiogram report from office showing a preserved EF of 55 to 60% with mild aortic regurgitation, moderate mitral regurgitation, and moderate tricuspid regurgitation. Cardiology clearing patient from their perspective to undergo surgical procedure and patient medically optimized to undergo surgical r epair at this time. 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 -Hold Eliquis secondary to impending surgical repair of right hip. Patient given a one-time dose of metoprolol 25 mg p.o. as she did not take her morning medications and to resume cardiac medication regimen with amlodipine 2.5 mg daily, atorvastatin 20 mg daily, and metoprolol 25 mg twice daily. -Recommend resuming Eliquis after completion of surgery once cleared by primary admitting orthopedic surgery team to resume. -Patient will require continuous telemetry monitoring during preoperative, intraoperative, and postoperative period. Hypochloremic hyponatremia -Patient reports taking Lasix for her peripheral vascular disease which is currently held at this time and patient placed on gentle IV fluid hydration with 0.9% normal saline at 50 cc/h. Acutely displaced intertrochanteric fracture of right hip -Strict bedrest, activity to be advanced after completion of surgical procedure as indicated by primary admitting orthopedic surgery team. -Insert Amria catheter for required immobilization needed for pending surgery. -Symptomatic care and pain management with Tylenol 650 mg every 6 hours as neede d for mild pain, [place] 5/325 mg tablets every 6 hours as needed for moderate pain, and Dilaudid 0.5 mg every 4 hours as needed for severe pain. -Continue Zofran 4 mg IVP every 8 hours as needed for nausea or vomiting Data and imaging reviewed: Morning labs reviewed. CBC showing bicytopenia with hemoglobin of 10.7, platelet count of 131, sodium of 128 and increased 0.9% normal saline to 100 cc/h. Blood glucose 116. Liver profile showing slightly elevated AST otherwise normal findings. Influenza A, influenza B, RSV, and COVID PCR negative. Vital signs reviewed. Blood pressure 127/87, heart rate 68, respiratory rate 17, temp 98.7 F, and SpO2 of 93% on room air. Patient did have slightly elevated temp overnight of 100.1 F. Thank you for allowing us to participate in the care of this pleasant patient. Do not hesitate to contact us with questions. Someone can be reached from the [facility] hospitalist group all hours of the day at [phone] or via perfect serve. Patient was seen independently by Nurse Practitioner. This document was prepared using [employer] dictation software. Please allow for errors in quality checker while rare they do occur. Sagar Mina WIREWORKER rendered care for this patient independently, reviewed the fin dings and plan as documented in the note above and agree with plan. I did not physically speak with or examine the patient on this date. Objective - Vital Signs Vital signs: Vital Signs Temp 100.1 F H 11/08/24 01:57 Pulse 114 H 11/08/24 01:57 Resp 18 11/08/24 01:57 BP 143/71 11/08/24 01:57 Pulse Ox 90 L 11/08/24 01:57 FiO2 Intake & Output 11/07/24 11/08/24 11/08/24 18:59 06:59 18:59 Output Total 700 700 Balance -700 -700 Weight 52.163 kg Output: Urine 700 700 Other: Voiding Method Indwelling Catheter - Labs CBC & Chem 7: 11/08/24 03:26 11/08/24 03:26 Labs: Abnormal Lab Results - Last 24 Hours (Table) 11/07/24 11/07/24 11/08/24 Range/Units 12:33 12:33 00:18 Plt Count 146 L (150-450) k/uL Sodium 129 L (137-145) mmol/L Chloride 96 L (98-107) mmol/L Creatinine 0.49 L (0.52-1.04) mg/dL Glucose 186 H (74-99) mg/dL POC Glucose (mg/dL) 128 H (70-110) mg/dL AST 45 H (14-36) U/L ALT 37 H (4-34) U/L
[2024-11-08] MEDS: ceFAZolin 1,000 MG in SODIUM CHLORIDE 0.9% 1,000 ML IRRIGATION ONE (16:23)
[2024-11-08] MEDS: IPRATROPIUM-ALBUTEROL 3 ML NEB INHALATION SCH (16:26)
[2024-11-08] MEDS ORDERED: MAGNESIUM HYDROXIDE 2,400 MG/30 ML CUP PO PRN (16:54)
[2024-11-08] MEDS ORDERED: NALOXONE 0.4 MG/ML 1 ML VIAL IV PRN (16:54)
--- NOTE | 2024-11-08 17:16 | P.OP ---
Date of Procedure: 11/08/24 Preoperative Diagnosis: Displaced right three-part intertrochanteric femur fracture Postoperative Diagnosis: Same Procedure(s) Performed: Trochanteric intramedullary nailing right three-part intertrochanteric femur fracture Implants: Alpha gamma 4 short 12 mm - 125 degree nail, 100 mm compression screw, 4.5 mm distal locking screw. Anesthesia: GETA Surgeon: Rodri Tabares Co Founder #1: Link Cochran Estimated Blood Loss (ml): 100 Pathology: none sent Condition: stable Disposition: PACU Indications for Procedure: The patient is an 89-year-old female who is a community ambulator presents after falling in her [employer] parking lot. Upon evaluation she was noted to have a displaced comminuted right three-part intertrochanteric femur fracture. A discussion of the risks and benefits of operative intervention was made with the patient and her family. They opted to proceed with surgery. Operative risks include infection, neurovascular injury, development of blood clots, possible development of nonunion, malunion, possible hardware failure, and possible need for subsequent procedures was discussed. Informed consent was obtained. Operative Findings: As below Description of Procedure: The patient was brought to the operating room, and after induction of general anesthesia was placed supine on the [place] table. The fracture was reduced with longitudinal traction and internal rotation of the right lower extremity. This was verified on the AP and lateral views with fluoroscopy. The right lower extremity was prepped and draped in normal fashion. A 10 cm incision was then made proximal to the greater trochanter. Skin was incised sharply. Subcutaneous tissues were divided sharply. Electrocautery is used for hemostasis. The gluteus gladis fascia was split in line with the skin incision. Blunt dissection was then made down to the level the greater trochanter. A starting awl was then placed in the medial tip of the greater trochanter verified with fluoroscopy. A ball-tipped guidewire was then inserted down the canal. Sequential canal reaming was performed up to 13.5 mm. Proximally it was taken up to 15.5 mm to the level of the lesser trochanter. A 12 mm short trochanteric nail was then gently inserted over the guidewire. This is taken to the appropriate depth. The guidewire was then removed. A threaded guidepin was then placed into the centercenter portion of the femoral head and neck to within 5 mm of the articular surface verified on the AP and lateral views. A triple reamer was used to a depth of 100 mm. A 100 mm compression scr ew was then gently inserted to the appropriate depth. The compression screw was inserted and was fully seated. There was good purchase. The traction was then released. The compression device was used to compress the fracture site. The distal static locking screw was placed utilizing the alignment jig. A 4.5 mm cortical screw the appropriate length was inserted. Good purchase was obtained. This was verified on the AP and lateral views. Final fluoroscopic view showed adequate reduction of the fracture and placement of the implant on both the AP and lateral views. The wounds were irrigated with normal saline. The fascia was closed with running 0 Vicryl suture. The subcutaneous tissues reapproximated interrupted 2-0 Vicryl sutures. The skin was reapproximated yolanda. A sterile dressing was applied. The patient was then awoken from general anesthesia and transferred recovery room in stable condition. Blood loss is estimated 100 cc. No complications were incurred. Sponge and needle counts were correct at the end the case. Link CAIN assisted in the major components of the case to include positioning, exposure, implantation, and closure.
--- NOTE | 2024-11-08 17:36 | FL ---
EXAMINATION TYPE: FL guidance operating room, XR Hip Complete RT DATE OF EXAM: 11/08/2024 4:59 PM COMPARISON: Pre Operative Images if available both CT/MRI or plain film CLINICAL INDICATION: Female, 89 years old with history of RIGHT HIP FX; TECHNIQUE: FL guidance operating room, XR Hip Complete RT, multiple fluoroscopic images provided for procedure. DAP: 1.6157 mGym2 Gycm2 uGym2 cGycm2 or equivalent. FINDINGS: Fluoroscopic images during internal fixation/arthroplasty demonstrate hardware in appropriate positio n. Hardware appears intact. No immediate complication identified. IMPRESSION: 1. No evidence for intraoperative complication. 2. Please see the operative/procedural note for further details. [facility], , 11/08/2024 5:34 PM
[2024-11-08 19:18] LABS: Basophils % (A) 0 %; Eosinophils % (A) 0 %; HCT 35.9 % (34.0-46.0); HGB 11.3 gm/dL (11.4-16.0); Lymphocytes # (A) 1.9 k/uL (1.0-4.8); Lymphocytes % (A) 23 %; MCH 27.3 pg (25.0-35.0); MCHC 31.3 g/dL (31.0-37.0); MCV 87.2 fL (80.0-100.0); Mean Platelet Volume 8.4; Monocytes # (A) 0.1 k/uL (0-1.0); Monocytes % (A) 2 %; Neutrophils # (A) 6.1 k/uL (1.3-7.7); Neutrophils % (A) 74 %; Platelet Count 121 k/uL (150-450); RBC 4.12 m/uL (3.80-5.40); RDW 14.3 % (11.5-15.5); WBC 8.2 k/uL (3.8-10.6)
[2024-11-09 00:01] LABS: Glucose,Whole Blood 158 mg/dL (70-110)
[2024-11-09 06:16] LABS: Glucose,Whole Blood 139 mg/dL (70-110)
[2024-11-09 08:15] LABS: HCT 28.8 % (37.2-46.3); HGB 9.7 g/dL (12.0-15.0); MCH 28.4 pg (27.0-32.0); MCHC 33.7 g/dL (32.0-37.0); MCV 84.5 FL (80.0-97.0); Mean Platelet Volume 10.2 FL (9.5-12.2); NRBC Per 100 WBC 0 X 10*3/uL (0.00-0.01); Platelet Count 125 X 10*3/uL (140-440); RBC 3.41 X 10*6/uL (4.10-5.20); RDW 14.8 % (11.5-14.5)
[2024-11-09 09:06] LABS: ALT 26 U/L (8-44); AST 39 U/L (13-35); Albumin 2.9 g/dL (3.8-4.9); Albumin/Globulin Ratio 1.53 Ratio (1.60-3.17); Alkaline Phosphatase 69 U/L (41-126); Blood Urea Nitrogen 10.9 mg/dL (9.0-27.0); Calcium 7.8 mg/dL (8.7-10.3); Carbon Dioxide 21.7 mmol/L (21.6-31.8); Chloride 101 mmol/L (96-109); Globulin 1.9 g/dL (1.6-3.3); Glucose 128 mg/dL (70-110); Magnesium 1.7 mg/dL (1.5-2.4); Potassium 4.3 mmol/L (3.5-5.5); Sodium 130 mmol/L (135-145); Total Bilirubin 0.5 mg/dL (0.3-1.2); Total Protein 4.8 g/dL (6.2-8.2)
--- NOTE | 2024-11-09 09:43 | P.PN ---
Subjective HISTORY OF PRESENT ILLNESS: This is a 89-year-old female with a past medical history significant for atrial fibrillation, mitral regurgitation, and hypertension. Patient follows in the office with Dr. Mcgraw. We have been asked to see the patient in consultation for cardiac clearance. Patient examined at the bedside. Patient was going to latter-day yesterday when she lost her balance trying to get out of her car and fell. She denies any syncope. Denies chest pain or pressure. Denied having any shortness of breath. The patient was found to have right hip fracture and is scheduled to undergo surgical intervention this afternoon. The patient does report feeling congested this morning. She was also febrile with a temperature of 100.1 F. DIAGNOSTICS: - EKG reveals A-fib with RVR. - Chest xray subtle scattered opacities which may represent atypical pneumonia - Laboratory data: WBC 7.2. Hemoglobin 13.7. Platelet count 146. Sodium 129. Potassium 4.0. BUN 13. Creatinine 0.49. - Current home cardiac medications include Eliquis 5 mg twice a day, Lipitor 20 mg daily, metoprolol tartrate 25 mg twice a day, amlodipine 2.5 mg daily, and Lasix 20 mg daily. - Most recent echocardiogram obtained in the office in March 2024 revealed ejection fraction 55 to 60%, mild aortic regurgitation, moderate MR, moderate TR - Patient underwent Lexiscan stress test in November 2021 which was negative for ischemia 11/09/2024 Patient is status post intramedullary nailing of right hip. Postop day #1. Patient examined Marielos at the bedside. Patient without complaints of chest pain or shortness of breath. She continues to report a cough which is bothersome to her today. Vital signs are stable. She has been resumed on anticoagulation. PHYSICAL EXAM: VITAL SIGNS: Reviewed. GENERAL: Well-developed in no acute distress. HEENT: Head is normocephalic. Pupils are equal, round. Sclerae anicteric. Mucous membranes of the mouth are moist. Neck supple. No JVD or thyromegaly LUNGS: Respirations even and unlabored. Lungs with bilateral wheezing noted HEART: Mildly tachycardic. Irregular rate and rhythm. S1 and S2 heard. Systolic murmur noted at the apex ABDOMEN: Soft. Nondistended. Nontender. EXTREMITIES: Normal range of motion. No clubbing or cyanosis. Peripheral pulses intact. No lower extremity edema NEUROLOGIC: Awake and alert. Oriented x 3. ASSESSMENT: Right hip fracture, status post mechanical fall Persistent atrial fibrillation Moderate mitral regurgitation Moderate tricuspid regurgitation History of hypertension Hyponatremia PLAN: No need to repeat echocardiogram as this was performed in the office in March 2024 Eliquis has been resumed today Continue current dose of metoprolol. Dose was increased yesterday to 50 mg twice a day Patient is currently stable from a cardiac standpoint Further recommendations pending patient course Nurse practitioner note has been reviewed by physician. Signing provider agrees with the documented findings, assessment, and plan of care documented by FOOD SAFETY TECHNICIAN as a scribe. Objective - Vital Signs Vital signs: Vital Signs Temp 98.2 F 11/09/24 07:39 Pulse 121 H 11/09/24 07:39 Resp 18 11/09/24 07:39 BP 152/76 11/09/24 07:39 Pulse Ox 98 11/09/24 09:03 FiO2 Intake & Output 11/08/24 11/09/24 11/09/24 18:59 06:59 18:59 Intake Total 751 Output Total 400 450 Balance 351 -450 Intake: IV 751 Output: Urine 350 450 Estimated Blood Loss 50 Other: Voiding Method Indwelling Catheter Indwelling Catheter - Labs CBC & Chem 7: 11/09/24 03:25 11/09/24 03:25 Labs: Abnormal Lab Results - Last 24 Hours (Table) 11/08/24 11/08/24 11/08/24 Range/Units 11:39 18:55 23:59 RBC (4.10-5.20) X 10*6/uL Hgb 11.3 L (11.4-16.0) gm/dL Hct (37.2-46.3) % RDW (11.5-14.5) % Plt Count 121 L (150-450) k/uL Sodium (135-145) mmol/L Creatinine (0.6-1.5) mg/dL BUN/Creatinine Ratio (12.00-20.00) Ratio Glucose (70-110) mg/dL POC Glucose (mg/dL) 115 H 158 H (70-110) mg/dL Calcium (8.7-10.3) mg/dL AST (13-35) U/L Total Protein (6.2-8.2) g/dL Albumin (3.8-4.9) g/dL Albumin/Globulin Ratio (1.60-3.17) Ratio 11/09/24 11/09/24 11/09/24 Range/Units 03:25 03:25 06:14 RBC 3.41 L (4.10-5.20) X 10*6/uL Hgb 9.7 L (11.4-16.0) gm/dL Hct 28.8 L (37.2-46.3) % RDW 14.8 H (11.5-14.5) % Plt Count 125 L (150-450) k/uL Sodium 130 L (135-145) mmol/L Creatinine 0.5 L (0.6-1.5) mg/dL BUN/Creatinine Ratio 21.80 H (12.00-20.00) Ratio Glucose 128 H (70-110) mg/dL POC Glucose (mg/dL) 139 H (70-110) mg/dL Calcium 7.8 L (8.7-10.3) mg/dL AST 39 H (13-35) U/L Total Protein 4.8 L (6.2-8.2) g/dL Albumin 2.9 L (3.8-4.9) g/dL Albumin/Globulin Ratio 1.53 L (1.60-3.17) Ratio
[2024-11-09] MEDS: APIXABAN 2.5 MG TABLET PO SCH (10:35)
[2024-11-09] MEDS: MAGNESIUM SULFATE-D5W PMX 1 GM in DEXTROSE/WATER 1 100ML.BAG IVPB SCH (10:38)
--- NOTE | 2024-11-09 11:01 | P.PN ---
Subjective Progress Note Date: 11/09/24 Principal diagnosis: Displaced right intertrochanteric femur fracture Patient evaluated at bedside, she is resting comfortably in her hospital bed. Pain is controlled with current medications. Physical therapy was just coming into the room to work with patient while was in there. Urinary catheter remains in place. Denies headaches, pain or shortness of breath Objective - Vital Signs Vital signs: Vital Signs Temp 98.2 F 11/09/24 07:39 Pulse 121 H 11/09/24 07:39 Resp 18 11/09/24 07:39 BP 152/76 11/09/24 07:39 Pulse Ox 98 11/09/24 09:03 FiO2 Intake & Output 11/08/24 11/09/24 11/09/24 18:59 06:59 18:59 Intake Total 751 Output Total 400 450 Balance 351 -450 Intake: IV 751 Output: Urine 350 450 Estimated Blood Loss 50 Other: Voiding Method Indwelling Catheter Indwelling Catheter - Exam Right lower extremity: Postop dressing is in good positioning condition Patient demonstrates pain with palpation to the proximal right thigh, she is nontender surrounding the knee, lower leg, foot or ankle Plantarflexion, dorsiflexion, EHL, FHL are intact. Calf is soft, no tenderness with palpation Sensory exam to light touch is intact throughout the extremity Dorsalis pedis pulses 2+ - Labs CBC & Chem 7: 11/09/24 03:25 11/09/24 03:25 Labs: Abnormal Lab Results - Last 24 Hours (Table) 11/08/24 11/08/24 11/08/24 Range/Units 11:39 18:55 23:59 RBC (4.10-5.20) X 10*6/uL Hgb 11.3 L (11.4-16.0) gm/dL Hct (37.2-46.3) % RDW (11.5-14.5) % Plt Count 121 L (150-450) k/uL Sodium (135-145) mmol/L Creatinine (0.6-1.5) mg/dL BUN/Creatinine Ratio (12.00-20.00) Ratio Glucose (70-110) mg/dL POC Glucose (mg/dL) 115 H 158 H (70-110) mg/dL Calcium (8.7-10.3) mg/dL AST (13-35) U/L Total Protein (6.2-8.2) g/dL Albumin (3.8-4.9) g/dL Albumin/Globulin Ratio (1.60-3.17) Ratio 11/09/24 11/09/24 11/09/24 Range/Units 03:25 03:25 06:14 RBC 3.41 L (4.10-5.20) X 10*6/uL Hgb 9.7 L (11.4-16.0) gm/dL Hct 28.8 L (37.2-46.3) % RDW 14.8 H (11.5-14.5) % Plt Count 125 L (150-450) k/uL Sodium 130 L (135-145) mmol/L Creatinine 0.5 L (0.6-1.5) mg/dL BUN/Creatinine Ratio 21.80 H (12.00-20.00) Ratio Glucose 128 H (70-110) mg/dL POC Glucose (mg/dL) 139 H (70-110) mg/dL Calcium 7.8 L (8.7-10.3) mg/dL AST 39 H (13-35) U/L Total Protein 4.8 L (6.2-8.2) g/dL Albumin 2.9 L (3.8-4.9) g/dL Albumin/Globulin Ratio 1.53 L (1.60-3.17) Ratio Assessment and Plan Assessment: Postoperative day #1 status post IM nail right intertrochanteric femur fracture Status post fall from standing A-fib Other medical comorbidities Plan: Pain control, multiple medications will be ordered both oral and IV as needed DVT prophylaxis, okay to resume Eliquis Regular diet DC urinary catheter, monitor for urinary retention Weight-bear as tolerated, walker at all times Medical and cardiac recommendations appreciated PT/OT recommendations appreciated Discharge planning: Planning for discharge to subacute rehab in the next 24-48 hours Time with Patient: Less than 30
[2024-11-09 11:33] LABS: Glucose,Whole Blood 233 mg/dL (70-110)
--- NOTE | 2024-11-09 15:30 | P.PN ---
Subjective Progress Note Date: 11/09/24 Hospital course: Patient is a very pleasant 89-year-old female with a past medical history of chronic atrial fibrillation on anticoagulation with Eliquis 5 mg twice daily follows with mold bunch trimmer Dr. 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 She presented to the emergency department after a fall. Patient reported that she was walking to her vehicle after chart and when walking down the curb to get into her car she lost her balance secondary to her "chronic drag" of her right leg resulting in her falling onto her right hip. Patient adamantly denies hitting her head or having any loss of consciousness. She denies having any dizziness, lightheadedness, chest pain, palpitations, or shortness of breath occurring before or after fall. She reports only injury is to right hip reporting pain throughout right hip and down entire right leg. She denies having any numbness or tingling and is able to wiggle her toes without difficulties. Upon arrival to our facility, patient underwent evaluation in the emergency department. Vital signs upon arrival show blood pressure 176/90, heart rate 118, respiratory rate 18, temp 97.6 F, and SpO2 of 96% on room air. EKG was completed showing atrial fibrillation with RVR to 111 bpm. Chest x-ray completed revealing cardiomegaly but negative for acute cardiopulmonary process. X-ray right knee negative for acute fracture or dislocation. X-ray right hip showing acute displaced intertrochanteric fracture of the right hip. Labs completed and reviewed. CBC showing mild thrombocytopenia with platelet count of 146 otherwise normal findings. Coagulation profile normal finding. BMP showing hyponatremic hypochloremia with sodium of 129 and chloride of 96 otherwise normal findings. Blood glucose was elevated at 186 patient was admitted under orthopedic surgery team and we were consulted for medical clearance and medical management throughout hospitalization and mold bunch trimmer was consulted for cardiac clearance. Physical exam: Patient seen full evaluated at bedside this morning. Maria catheter remains in place but patient was getting up to the chair and to the restroom with 2 person assist this morning. At time of examination patient does report moderate postoperative pain and states this is her first time getting up since completion of surgical procedure. Patient denies any other complaints at this time including nausea, vomiting, chest pain, palpitations, shortness of breath, or experiencing any numbness in her extremities. Vital signs reviewed and stable with the exception of mild hypertension and tachycardia. General: Nontoxic, no distress and appears stated age. Derm: Skin warm and dry, normal coloration for ethnicity. Head: Atraumatic, normocephalic and symmetric. Eyes: EOM's intact, no lid lag, and anicteric sclera Mouth: no lip lesions, mucus membranes moist Cardiovascular: Irregularly irregular rhythm, systolic murmur, positive posterior tibial pulses bilaterally, and cap refill < 2 seconds. Lungs: Respirations even, regular, and unlabored on room air. Lungs CTA bilaterally, no rhonchi, no rales, no wheezing, and no accessory muscle usage. Abdominal: soft, nontender to palpation, no guarding, no appreciable organomegaly Ext: No gross muscle atrophy, no edema, no contractures. Sensation intact. Patient with restricted movement of right lower extremity due to acute fracture, she remains able to wiggle toes and foot. She has positive right lower extre mity shortening and lateral rotation. Bilateral lower extremities with venous stasis discoloration and multiple varicose veins. Neuro: Speech slightly slowed to response (reported chronic from previous CVA), face symmetrical and CN II-XII grossly intact with no noted focal neuro deficits Psych: Alert and oriented to person, place, time, and situation. Appropriate and pleasant affect. Assessment and Plan of Care: Status post trochanteric intramedullary nailing of right three-part intertrochanteric femur fracture Acute displaced intertrochanteric fracture of right hip -Management per primary admitting orthopedic surgery team including DVT prophylaxis, pain management, wound/dressing management, weightbearing, and PT/OT. -Symptomatic care and pain management with Tylenol 650 mg every 6 hours as needed for mild pain, Neopit 5/325 mg tablets every 6 hours as needed for moderate pain, and Dilaudid 0.5 mg every 4 hours as needed for severe pain. -Continue Zofran 4 mg IVP every 8 hours as needed for nausea or vomiting Acute postoperative blood loss anemia and thrombocytopenia -Preoperative hemoglobin 11.3 and platelet count of 121 with postoperative hemoglobin of 9.7 and platelet count of 125. This is a stable and expected finding, no active bleeding, no need for transfusion or any further interventions at this time. 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 -Eliquis 2.5 mg twice daily was resumed today and patient to continue cardiac medication regimen with amlodipine 2.5 mg daily, atorvastatin 20 mg daily, and metoprolol 50 mg twice daily. -Patient will require continuous telemetry monitoring during preoperative, intraoperative, and postoperative period. -Cardiology following increasing metoprolol to 50 mg twice daily on 11/08/2024. Hypochloremic hyponatremia -Patient reports taking Lasix for her peripheral vascular disease which is currently held at this time and patient was provided with gentle IV fluid hydration with 0.9% normal saline resulting in sodium improving to 130. Data and imaging reviewed: Morning labs reviewed. CBC showing bicytopenia with hemoglobin of 9.7, platelet count of 125. BMP showing sodium of 130 Blood glucose 128. Liver profile showing slightly elevated AST of 39 otherwise normal findings. Vital signs reviewed. Blood pressure 152/76, heart rate 121, respiratory rate 18, temp 98.2 F, and SpO2 of 97% on 3 L. Thank you for allowing us to participate in the care of this pleasant patient. Do not hesitate to contact us with questions. Someone can be reached from the [facility] hospitalist group all hours of the day at [phone] or via perfect serve. Patient was seen independently by Nurse Practitioner. This document was prepared using [employer] dictation software. Please allow for errors in pond worker while rare they do occur. Sagar Mina NP rendered care for this patient independently, reviewed the findings and plan as documented in the note above and agree with plan. I did not physically speak with or examine the patient on this date. Objective - Vital Signs Vital signs: Vital Signs Temp 98.2 F 11/09/24 07:39 Pulse 121 H 11/09/24 07:39 Resp 18 11/09/24 07:39 BP 152/76 11/09/24 07:39 Pulse Ox 98 11/09/24 09:03 FiO2 Intake & Output 11/08/24 11/09/24 11/09/24 18:59 06:59 18:59 Intake Total 751 Output Total 400 450 Balance 351 -450 Intake: IV 751 Output: Urine 350 450 Estimated Blood Loss 50 Other: Voiding Method Indwelling Catheter Indwelling Catheter - Labs CBC & Chem 7: 11/09/24 03:25 11/09/24 03:25 Labs: Abnormal Lab Results - Last 24 Hours (Table) 11/08/24 11/08/24 11/08/24 Range/Units 03:26 11:39 18:55 RBC (4.10-5.20) X 10*6/uL Hgb 11.3 L (11.4-16.0) gm/dL Hct (37.2-46.3) % RDW (11.5-14.5) % Plt Count 121 L (150-450) k/uL Sodium 128 L (135-145) mmol/L Creatinine 0.5 L (0.6-1.5) mg/dL BUN/Creatinine Ratio (12.00-20.00) Ratio Glucose 116 H (70-110) mg/dL POC Glucose (mg/dL) 115 H (70-110) mg/dL Calcium 7.9 L (8.7-10.3) mg/dL AST 37 H (13-35) U/L Total Protein 5.1 L (6.2-8.2) g/dL Albumin 3.5 L (3.8-4.9) g/dL Albumin/Globulin Ratio (1.60-3.17) Ratio 11/08/24 11/09/24 11/09/24 Range/Units 23:59 03:25 03:25 RBC 3.41 L (4.10-5.20) X 10*6/uL Hgb 9.7 L (11.4-16.0) gm/dL Hct 28.8 L (37.2-46.3) % RDW 14.8 H (11.5-14.5) % Plt Count 125 L (150-450) k/uL Sodium 130 L (135-145) mmol/L Creatinine 0.5 L (0.6-1.5) mg/dL BUN/Creatinine Ratio 21.80 H (12.00-20.00) Ratio Glucose 128 H (70-110) mg/dL POC Glucose (mg/dL) 158 H (70-110) mg/dL Calcium 7.8 L (8.7-10.3) mg/dL AST 39 H (13-35) U/L Total Protein 4.8 L (6.2-8.2) g/dL Albumin 2.9 L (3.8-4.9) g/dL Albumin/Globulin Ratio 1.53 L (1.60-3.17) Ratio // Range/Units 06:14 RBC (4.10-5.20) X 10*6/uL Hgb (11.4-16.0) gm/dL Hct (37.2-46.3) % RDW (11.5-14.5) % Plt Count (150-450) k/uL Sodium (135-145) mmol/L Creatinine (0.6-1.5) mg/dL BUN/Creatinine Ratio (12.00-20.00) Ratio Glucose (70-110) mg/dL POC Glucose (mg/dL) 139 H (70-110) mg/dL Calcium (8.7-10.3) mg/dL AST (13-35) U/L Total Protein (6.2-8.2) g/dL Albumin (3.8-4.9) g/dL Albumin/Globulin Ratio (1.60-3.17) Ratio
[2024-11-09 16:48] LABS: Glucose,Whole Blood 90 mg/dL (70-110)
[2024-11-09 20:48] LABS: Glucose,Whole Blood 153 mg/dL (70-110)
[2024-11-10 02:05] LABS: Glucose,Whole Blood 119 mg/dL (70-110)
[2024-11-10] MEDS: ACETAMINOPHEN TAB 325 MG TAB PO PRN (02:25)
[2024-11-10 06:25] LABS: Glucose,Whole Blood 128 mg/dL (70-110)
[2024-11-10 08:41] LABS: ALT 26 U/L (8-44); AST 48 U/L (13-35); Albumin 2.9 g/dL (3.8-4.9); Albumin/Globulin Ratio 1.61 Ratio (1.60-3.17); Alkaline Phosphatase 71 U/L (41-126); Blood Urea Nitrogen 15.7 mg/dL (9.0-27.0); Calcium 7.5 mg/dL (8.7-10.3); Carbon Dioxide 21.6 mmol/L (21.6-31.8); Chloride 97 mmol/L (96-109); Globulin 1.8 g/dL (1.6-3.3); Glucose 112 mg/dL (70-110); Magnesium 1.7 mg/dL (1.5-2.4); Potassium 4.3 mmol/L (3.5-5.5); Sodium 126 mmol/L (135-145); Total Bilirubin 0.5 mg/dL (0.3-1.2); Total Protein 4.7 g/dL (6.2-8.2)
[2024-11-10 09:11] LABS: HCT 24.9 % (37.2-46.3); HGB 8.4 g/dL (12.0-15.0); MCH 28.1 pg (27.0-32.0); MCHC 33.7 g/dL (32.0-37.0); MCV 83.3 FL (80.0-97.0); Mean Platelet Volume 10.1 FL (9.5-12.2); NRBC Per 100 WBC 0 X 10*3/uL (0.00-0.01); Platelet Count 143 X 10*3/uL (140-440); RBC 2.99 X 10*6/uL (4.10-5.20); RDW 14.6 % (11.5-14.5); WBC 8.12 X 10*3/uL (4.50-10.00)
[2024-11-10] MEDS: Acetaminophen-Codeine 300-30mg TAB PO PRN (09:58)
--- NOTE | 2024-11-10 10:35 | P.PN ---
Subjective Progress Note Date: 11/10/24 Principal diagnosis: Displaced right intertrochanteric femur fracture Patient evaluated at bedside, she is resting comfortably in her hospital chair. Pain is controlled with current medications. Voiding trial at this time, discussed with nursing if she is unable to urinate placement urinary catheter with urology consult. Patient's anemia has continued to worsen daily since surgery. Patient's sodium continues to decrease also.. Denies headaches, pain or shortness of breath Objective - Vital Signs Vital signs: Vital Signs Temp 98.6 F 11/10/24 07:00 Pulse 105 H 11/10/24 09:36 Resp 17 11/10/24 09:36 BP 136/76 11/10/24 07:00 Pulse Ox 96 11/10/24 07:00 FiO2 Intake & Output 11/09/24 11/10/24 11/10/24 18:59 06:59 18:59 Intake Total 800 250 Output Total 320 890 Balance 480 -890 250 Intake: Oral 800 250 Output: Urine 320 400 Straight 400 Uretheral (Maria) 320 Urine/Stool Mix 490 Other: Voiding Method Indwelling Catheter - Exam Right lower extremity: Postop dressing is in good positioning condition Patient demonstrates pain with palpation to the proximal right thigh, she is nontender surrounding the knee, lower leg, foot or ankle Plantarflexion, dorsiflexion, EHL, FHL are intact. Calf is soft, no tenderness with palpation Sensory exam to light touch is intact throughout the extremity Dorsalis pedis pulses 2+ - Labs CBC & Chem 7: 11/10/24 05:40 11/10/24 05:40 Labs: Abnormal Lab Results - Last 24 Hours (Table) 11/09/24 11/09/24 11/10/24 Range/Units 11:32 20:47 02:03 RBC (4.10-5.20) X 10*6/uL Hgb (12.0-15.0) g/dL Hct (37.2-46.3) % RDW (11.5-14.5) % Sodium (135-145) mmol/L Creatinine (0.6-1.5) mg/dL BUN/Creatinine Ratio (12.00-20.00) Ratio Glucose (70-110) mg/dL POC Glucose (mg/dL) 233 H 153 H 119 H (70-110) mg/dL Calcium (8.7-10.3) mg/dL AST (13-35) U/L Total Protein (6.2-8.2) g/dL Albumin (3.8-4.9) g/dL 11/10/24 11/10/24 11/10/24 Range/Units 05:40 05:40 06:23 RBC 2.99 L (4.10-5.20) X 10*6/uL Hgb 8.4 L (12.0-15.0) g/dL Hct 24.9 L (37.2-46.3) % RDW 14.6 H (11.5-14.5) % Sodium 126 L (135-145) mmol/L Creatinine 0.5 L (0.6-1.5) mg/dL BUN/Creatinine Ratio 31.40 H (12.00-20.00) Ratio Glucose 112 H (70-110) mg/dL POC Glucose (mg/dL) 128 H (70-110) mg/dL Calcium 7.5 L (8.7-10.3) mg/dL AST 48 H (13-35) U/L Total Protein 4.7 L (6.2-8.2) g/dL Albumin 2.9 L (3.8-4.9) g/dL Assessment and Plan Assessment: Postoperative day #2 status post IM nail right intertrochanteric femur fracture Status post fall from standing Acute blood loss anemia, expected surgical outcome A-fib Other medical comorbidities Plan: Pain control, multiple medications will be ordered both oral and IV as needed DVT prophylaxis, okay to resume Eliquis. Discussed with nursing to have that conversation with cardiology and medicine regarding holding blood thinner based on her current hemoglobin. Regular diet Pending bladder trial, possible placement of urinary catheter and urology consult Ferrous sulfate 325 mg daily starting today, I also ordered 1 unit of packed RBCs for symptomatic anemia Weight-bear as tolerated, walker at all times Medical and cardiac recommendations appreciated PT/OT recommendations appreciated Discharge planning: medically patient is not fit for discharge to subacute rehab today, will continue to monitor, hopeful discharge in the next 24-48 hours Time with Patient: Less than 30
--- NOTE | 2024-11-10 11:38 | P.PN ---
Subjective HISTORY OF PRESENT ILLNESS: This is a 89-year-old female with a past medical history significant for atrial fibrillation, mitral regurgitation, and hypertension. Patient follows in the office with Dr. Mcgraw. We have been asked to see the patient in consultation for cardiac clearance. Patient examined at the bedside. Patient was going to mormonism yesterday when she lost her balance trying to get out of her car and fell. She denies any syncope. Denies chest pain or pressure. Denied having any shortness of breath. The patient was found to have right hip fracture and is scheduled to undergo surgical intervention this afternoon. The patient does report feeling congested this morning. She was also febrile with a temperature of 100.1 F. DIAGNOSTICS: - EKG reveals A-fib with RVR. - Chest xray subtle scattered opacities which may represent atypical pneumonia - Laboratory data: WBC 7.2. Hemoglobin 13.7. Platelet count 146. Sodium 129. Potassium 4.0. BUN 13. Creatinine 0.49. - Current home cardiac medications include Eliquis 5 mg twice a day, Lipitor 20 mg daily, metoprolol tartrate 25 mg twice a day, amlodipine 2.5 mg daily, and Lasix 20 mg daily. - Most recent echocardiogram obtained in the office in March 2024 revealed ejection fraction 55 to 60%, mild aortic regurgitation, moderate MR, moderate TR - Patient underwent Lexiscan stress test in November 2021 which was negative for ischemia 11/09/2024 Patient is status post intramedullary nailing of right hip. Postop day #1. Patient examined at the bedside. Patient without complaints of chest pain or shortness of breath. She continues to report a cough which is bothersome to her today. Vital signs are stable. She has been resumed on anticoagulation. 11/10/2024 Patient examined this morning at the bedside. Patient denies chest pain or pressure. She denies shortness of breath. Blood pressure stable. She remains in atrial fibrillation with heart rate around [id number]. PHYSICAL EXAM: VITAL SIGNS: Reviewed. GENERAL: Well-developed in no acute distress. HEENT: Head is normocephalic. Pupils are equal, round. Sclerae anicteric. Mucous membranes of the mouth are moist. Neck supple. No JVD or thyromegaly LUNGS: Respirations even and unlabored. Lungs with bilateral wheezing noted HEART: Mildly tachycardic. Irregular rate and rhythm. S1 and S2 heard. S ystolic murmur noted at the apex ABDOMEN: Soft. Nondistended. Nontender. EXTREMITIES: Normal range of motion. No clubbing or cyanosis. Peripheral pulses intact. No lower extremity edema NEUROLOGIC: Awake and alert. Oriented x 3. ASSESSMENT: Right hip fracture, status post mechanical fall Persistent atrial fibrillation Moderate mitral regurgitation Moderate tricuspid regurgitation History of hypertension Hyponatremia PLAN: No need to repeat echocardiogram as this was performed in the office in March 2024 Continue anticoagulation with Eliquis Increase metoprolol to 75 mg twice a day Patient is currently stable from a cardiac standpoint Further recommendations pending patient course Nurse practitioner note has been reviewed by physician. Signing provider agrees with the documented findings, assessment, and plan of care documented by [employer] as a scribe. Objective - Vital Signs Vital signs: Vital Signs Temp 98.6 F 11/10/24 07:00 Pulse 105 H 11/10/24 09:36 Resp 17 11/10/24 09:36 BP 136/76 11/10/24 07:00 Pulse Ox 96 11/10/24 07:00 FiO2 Intake & Output 11/09/24 11/10/24 11/10/24 18:59 06:59 18:59 Intake Total 800 250 Output Total 320 890 Balance 480 -890 250 Intake: Oral 800 250 Output: Urine 320 400 Straight 400 Uretheral (Maria) 320 Urine/Stool Mix 490 Other: Voiding Method Indwelling Catheter - Labs CBC & Chem 7: 11/10/24 05:40 11/10/24 05:40 Labs: Abnormal Lab Results - Last 24 Hours (Table) 11/09/24 11/09/24 11/10/24 Range/Units 11:32 20:47 02:03 RBC (4.10-5.20) X 10*6/uL Hgb (12.0-15.0) g/dL Hct (37.2-46.3) % RDW (11.5-14.5) % Sodium (135-145) mmol/L Creatinine (0.6-1.5) mg/dL BUN/Creatinine Ratio (12.00-20.00) Ratio Glucose (70-110) mg/dL POC Glucose (mg/dL) 233 H 153 H 119 H (70-110) mg/dL Calcium (8.7-10.3) mg/dL AST (13-35) U/L Total Protein (6.2-8.2) g/dL Albumin (3.8-4.9) g/dL 11/10/24 11/10/24 11/10/24 Range/Units 05:40 05:40 06:23 RBC 2.99 L (4.10-5.20) X 10*6/uL Hgb 8.4 L (12.0-15.0) g/dL Hct 24.9 L (37.2-46.3) % RDW 14.6 H (11.5-14.5) % Sodium 126 L (135-145) mmol/L Creatinine 0.5 L (0.6-1.5) mg/dL BUN/Creatinine Ratio 31.40 H (12.00-20.00) Ratio Glucose 112 H (70-110) mg/dL POC Glucose (mg/dL) 128 H (70-110) mg/dL Calcium 7.5 L (8.7-10.3) mg/dL AST 48 H (13-35) U/L Total Protein 4.7 L (6.2-8.2) g/dL Albumin 2.9 L (3.8-4.9) g/dL
[2024-11-10 11:53] LABS: Glucose,Whole Blood 128 mg/dL (70-110)
[2024-11-10] MEDS: METOPROLOL TARTRATE 25 MG TAB PO STA (12:44)
[2024-11-10] MEDS: FERROUS SULFATE 325 MG TAB PO SCH (12:44)
[2024-11-10] MEDS: guaiFENesin 600 MG TABLET.ER PO SCH (13:21)
--- NOTE | 2024-11-10 13:22 | XR ---
EXAMINATION TYPE: XR chest 1V portable DATE OF EXAM: 11/10/2024 1:16 PM COMPARISON: Chest radiographs from 11/08/2024 TECHNIQUE: XR chest 1V portable Portable AP radiograph of the chest. CLINICAL INDICATION:Female, 89 years old with history of increased coughing; FINDINGS: Lungs/Pleura: No pneumothorax or pleural effusion. Hyperinflation. Similar scattered reticular opacit ies. Most pronounced within the left lung. Pulmonary vascularity: Unremarkable. Heart/mediastinum: Cardiomediastinal silhouette is enlarged and stable. Atherosclerotic calcificatio ns are seen in the aorta. Musculoskeletal: No acute osseous pathology. Right AC joint arthropathy. IMPRESSION: COPD changes with similar scattered reticular opacities which may represent pulmonary fibrotic change s versus atypical pneumonia. [facility], , 11/10/2024 1:20 PM
--- NOTE | 2024-11-10 14:39 | P.PN ---
Subjective Progress Note Date: 11/10/24 Hospital course: Patient is a very pleasant 89-year-old female with a past medical history of chronic atrial fibrillation on anticoagulation with Eliquis 5 mg twice daily follows with community living instructor Dr. 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 She presented to the emergency department after a fall. Patient reported that she was walking to her vehicle after chart and when walking down the curb to get into her car she lost her balance secondary to her "chronic drag" of her right leg resulting in her falling onto her right hip. Patient adamantly denies hitting her head or having any loss of consciousness. She denies having any dizziness, lightheadedness, chest pain, palpitations, or shortness of breath occurring before or after fall. She reports only injury is to right hip reporting pain throughout right hip and down entire right leg. She denies having any numbness or tingling and is able to wiggle her toes without difficulties. Upon arrival to our facility, patient underwent evaluation in the emergency department. Vital signs upon arrival show blood pressure 176/90, heart rate 118, respiratory rate 18, temp 97.6 F, and SpO2 of 96% on room air. EKG was completed showing atrial fibrillation with RVR to 111 bpm. Chest x-ray completed revealing cardiomegaly but negative for acute cardiopulmonary process. X-ray right knee negative for acute fracture or dislocation. X-ray right hip showing acute displaced intertrochanteric fracture of the right hip. Labs completed and reviewed. CBC showing mild thrombocytopenia with platelet count of 146 otherwise normal findings. Coagulation profile normal finding. BMP showing hyponatremic hypochloremia with sodium of 129 and chloride of 96 otherwise normal findings. Blood glucose was elevated at 186 patient was admitted under orthopedic surgery team and we were consulted for medical clearance and medical management throughout hospitalization and community living instructor was consulted for cardiac clearance. Physical exam: Patient seen full evaluated at bedside this morning. She reports doing better this morning stating better control of pain, states that remains moderate but much better today. She is visiting with family at bedside. She denies having any questions, needs, or complaints at this time Vital signs reviewed and stable with the exception of mild hypertension and tachycardia. General: Nontoxic, no distress and appears stated age. Derm: Skin warm and dry, normal coloration for ethnicity. Head: Atraumatic, normocephalic and symmetric. Eyes: EOM's intact, no lid lag, and anicteric sclera Mouth: no lip lesions, mucus membranes moist Cardiovascular: Irregularly irregular rhythm, systolic murmur, positive posterior tibial pulses bilaterally, and cap refill < 2 seconds. Lungs: Respirations even, regular, and unlabored on room air. Lungs CTA bilaterally, no rhonchi, no rales, no wheezing, and no accessory muscle usage. Abdominal: soft, nontender to palpation, no guarding, no appreciable organomegaly Ext: No gross muscle atrophy, no edema, no contractures. Movement and sensation intact. Neuro: Speech slightly slowed to response (reported chronic from previous CVA), face symmetrical and CN II-XII grossly intact with no noted focal neuro deficits Psych: Alert and oriented to person, place, time, and situation. Appropriate and pleasant affect. Assessment and Plan of Care: Status post trochanteric intramedullary nailing of right three-part intertrochanteric femur fracture Acute displaced intertrochanteric fracture of right hip -Management per primary admitting orthopedic surgery team including DVT prophylaxis, pain management, wound/dressing management, weightbearing, and PT/OT. -Symptomatic care and pain management with Tylenol 650 mg every 6 hours as needed for mild pain, Oxford 5/325 mg tablets every 6 hours as needed for moderate pain, and Dilaudid 0.5 mg every 4 hours as needed for severe pain. -Continue Zofran 4 mg IVP every 8 hours as needed for nausea or vomiting Acute postoperative blood loss anemia -Preoperative hemoglobin 11.3 with current postoperative hemoglobin of 8.4. No active bleeding noted. No large bruising or hematoma noted. Will continue to monitor with repeat morning labs. Patient asymptomatic and denies feeling dizziness/lightheadedness or any shortness of breath. Hyponatremia -Worsening hyponatremia with sodium decreasing from 138 at 126 over the last 24 hours since stopping of IV fluids. Discussed with cardiac PET CREMATORY WORKER and orthopedic surgery PA, orthopedic surgery team administering 1 unit of PRBCs and therefore we will hold off on additional IV fluids. Patient may require IV Lasix post receiving transfusion. BMP to be monitored closely, repeat BMP this evening and again tomorrow. Atrial fibrillation with RVR, currently rate controlled Hypertension Hyperlipidemia History of CVA with right lower extremity deficits and mild speech deficit Peripheral vascular disease -Patient with mild RVR currently with ventricular rate in 110s. -Eliquis 2.5 mg twice daily was resumed today and patient to continue cardiac medication regimen with amlodipine 2.5 mg daily, atorvastatin 20 mg daily, and metoprolol 50 mg twice daily. -Patient will require continuous telemetry monitoring during preoperative, intraoperative, and postoperative period. -Cardiology following increasing metoprolol to 50 mg twice daily on 11/08/2024. Data and imaging reviewed: Morning labs reviewed. CBC showing hemoglobin of 8.4 and improvement of platelet count to 143. BMP showing sodium of 126 and blood glucose of 112. Magnesium slightly low at 1.7. Liver profile showing elevated AST of 48 otherwise normal findings albumin was 2.9. Vital signs reviewed. Blood pressure 136/76, heart rate 105, respiratory rate 17, temp 98.6 F, and SpO2 of 96% on 3 L Thank you for allowing us to participate in the care of this pleasant patient. Do not hesitate to contact us with questions. Someone can be reached from the [facility] hospitalist group all hours of the day at [phone] or via [employer] serve. Patient was seen independently by Nurse Practitioner. This document was prepared using [employer] dictation software. Please allow for errors in bundler while rare they do occur. Sagar Mina NP rendered care for this patient independently, reviewed the findings and plan as documented in the note above and agree with plan. I did not physically speak with or examine the patient on this date. Objective - Vital Signs Vital signs: Vital Signs Temp 98.6 F 11/10/24 07:00 Pulse 105 H 11/10/24 07:00 Resp 17 11/10/24 07:00 BP 136/76 11/10/24 07:00 Pulse Ox 96 11/10/24 07:00 FiO2 Intake & Output 11/09/24 11/10/24 11/10/24 18:59 06:59 18:59 Intake Total 800 250 Output Total 320 890 Balance 480 -890 250 Intake: Oral 800 250 Output: Urine 320 400 Straight 400 Uretheral (Maria) 320 Urine/Stool Mix 490 - Labs CBC & Chem 7: 11/10/24 05:40 11/10/24 05:40 Labs: Abnormal Lab Results - Last 24 Hours (Table) 11/09/24 11/09/24 11/10/24 Range/Units 11:32 20:47 02:03 RBC (4.10-5.20) X 10*6/uL Hgb (12.0-15.0) g/dL Hct (37.2-46.3) % RDW (11.5-14.5) % Sodium (135-145) mmol/L Creatinine (0.6-1.5) mg/dL BUN/Creatinine Ratio (12.00-20.00) Ratio Glucose (70-110) mg/dL POC Glucose (mg/dL) 233 H 153 H 119 H (70-110) mg/dL Calcium (8.7-10.3) mg/dL AST (13-35) U/L Total Protein (6.2-8.2) g/dL Albumin (3.8-4.9) g/dL 11/10/24 11/10/24 11/10/24 Range/Units 05:40 05:40 06:23 RBC 2.99 L (4.10-5.20) X 10*6/uL Hgb 8.4 L (12.0-15.0) g/dL Hct 24.9 L (37.2-46.3) % RDW 14.6 H (11.5-14.5) % Sodium 126 L (135-145) mmol/L Creatinine 0.5 L (0.6-1.5) mg/dL BUN/Creatinine Ratio 31.40 H (12.00-20.00) Ratio Glucose 112 H (70-110) mg/dL POC Glucose (mg/dL) 128 H (70-110) mg/dL Calcium 7.5 L (8.7-10.3) mg/dL AST 48 H (13-35) U/L Total Protein 4.7 L (6.2-8.2) g/dL Albumin 2.9 L (3.8-4.9) g/dL
[2024-11-10 15:21] LABS: % Iron Saturation 7.03 (12.00-45.00)
[2024-11-10 16:31] LABS: Glucose,Whole Blood 128 mg/dL (70-110)
[2024-11-10 18:35] LABS: African American GFR (CKD) >90 (>60 ml/min/1.73 sqM); Anion Gap 4 mmol/L; Blood Urea Nitrogen 13 mg/dL (7-17); Calcium 7.5 mg/dL (8.4-10.2); Carbon Dioxide 21 mmol/L (22-30); Chloride 91 mmol/L (98-107); Glucose 110 mg/dL (74-99); Non-African American GFR(CKD) 90 (>60 ml/min/1.73 sqM); Potassium 4.3 mmol/L (3.5-5.1)
[2024-11-10 18:38] LABS: Sodium 116 mmol/L (137-145)
[2024-11-10 20:12] LABS: African American GFR (CKD) >90 (>60 ml/min/1.73 sqM); Anion Gap 7 mmol/L; Blood Urea Nitrogen 13 mg/dL (7-17); Calcium 7.6 mg/dL (8.4-10.2); Carbon Dioxide 21 mmol/L (22-30); Chloride 89 mmol/L (98-107); Glucose 147 mg/dL (74-99); Non-African American GFR(CKD) 84 (>60 ml/min/1.73 sqM); Potassium 4.4 mmol/L (3.5-5.1)
[2024-11-10 20:16] LABS: Sodium 117 mmol/L (137-145)
[2024-11-10 20:22] LABS: NT-Pro-B-Type Natriuretic Pept 2610 pg/mL
[2024-11-10 20:33] LABS: Glucose,Whole Blood 149 mg/dL (70-110)
[2024-11-10] MEDS: METOPROLOL TARTRATE 50 MG TAB PO SCH (21:31)
[2024-11-10 21:58] LABS: Glucose,Whole Blood 115 mg/dL (70-110)
[2024-11-10] MEDS: SODIUM CHLORIDE 3%(HYPERTONIC) 500 ML IV ONE (22:22)
[2024-11-11 00:27] LABS: Glucose,Whole Blood 121 mg/dL (70-110)
[2024-11-11 01:43] LABS: Basophils # (A) 0.02 X 10*3/uL (0.00-0.10); Basophils % (A) 0.2 %; Eosinophils # (A) 0.04 X 10*3/uL (0.04-0.35); Eosinophils % (A) 0.4 %; HCT 25.2 % (37.2-46.3); HGB 8.4 g/dL (12.0-15.0); Lymphocytes # (A) 2.96 X 10*3/uL (0.90-5.00); Lymphocytes % (A) 32.2 %; MCH 27.5 pg (27.0-32.0); MCHC 33.3 g/dL (32.0-37.0); MCV 82.4 FL (80.0-97.0); Mean Platelet Volume 9.9 FL (9.5-12.2); Monocytes # (A) 0.38 X 10*3/uL (0.20-1.00); Monocytes % (A) 4.1 %; NRBC Per 100 WBC 0 X 10*3/uL (0.00-0.01); Neutrophils # (A) 5.74 X 10*3/uL (1.80-7.70); Neutrophils % (A) 62.7 %; Platelet Count 163 X 10*3/uL (140-440); RBC 3.06 X 10*6/uL (4.10-5.20); RDW 14.5 % (11.5-14.5); WBC 9.18 X 10*3/uL (4.50-10.00)
[2024-11-11] MEDS: HYDROcodone/APAP 5-325MG 1 EACH TAB PO PRN (02:05)
[2024-11-11 02:53] LABS: HCT 28.5 % (34.0-46.0); MCH 28.8 pg (25.0-35.0); MCHC 33.6 g/dL (31.0-37.0); MCV 85.7 fL (80.0-100.0); Mean Platelet Volume 7.6; Platelet Count 152 k/uL (150-450); RBC 3.32 m/uL (3.80-5.40); RDW 14.2 % (11.5-15.5); WBC 7.8 k/uL (3.8-10.6)
[2024-11-11 02:55] LABS: HGB 9.6 gm/dL (11.4-16.0)
[2024-11-11 03:17] LABS: ALT 30 U/L (4-34); AST 55 U/L (14-36); African American GFR (CKD) >90 (>60 ml/min/1.73 sqM); Albumin 2.5 g/dL (3.5-5.0); Albumin/Globulin Ratio 1.1; Alkaline Phosphatase 76 U/L (38-126); Anion Gap 3 mmol/L; Blood Urea Nitrogen 13 mg/dL (7-17); Calcium 7.4 mg/dL (8.4-10.2); Carbon Dioxide 21 mmol/L (22-30); Chloride 92 mmol/L (98-107); Globulin 2.2 g/dL; Glucose 102 mg/dL (74-99); Magnesium 1.6 mg/dL (1.6-2.3); Non-African American GFR(CKD) 88 (>60 ml/min/1.73 sqM); Potassium 4.2 mmol/L (3.5-5.1); Total Bilirubin 1.5 mg/dL (0.2-1.3); Total Protein 4.7 g/dL (6.3-8.2)
[2024-11-11 03:23] LABS: Sodium 116 mmol/L (137-145)
[2024-11-11 06:13] LABS: African American GFR (CKD) >90 (>60 ml/min/1.73 sqM); Anion Gap 2 mmol/L; Blood Urea Nitrogen 12 mg/dL (7-17); Calcium 7.7 mg/dL (8.4-10.2); Carbon Dioxide 23 mmol/L (22-30); Chloride 96 mmol/L (98-107); Glucose 92 mg/dL (74-99); Non-African American GFR(CKD) 89 (>60 ml/min/1.73 sqM); Potassium 4.2 mmol/L (3.5-5.1); Sodium 121 mmol/L (137-145)
[2024-11-11 06:38] LABS: Glucose,Whole Blood 101 mg/dL (70-110)
--- NOTE | 2024-11-11 06:46 | P.PN ---
Subjective Progress Note Date: 11/11/24 The patient is a pleasant 89-year-old female patient with a past medical history significant for atrial fibrillation as well as valvular heart disease who was admitted to the hospital because of hip surgery. Subsequently she developed hyponatremia and she was transferred to the intensive care unit. November 11, 2024 The patient was seen and evaluated this morning. She is asymptomatic. The dose of beta-danny has increased yesterday and she remains in atrial fibrillation with overall controlled heart rate on the current medical regimen. She is on oral anticoagulation with Eliquis. The physical examination is remarkable for irregular rhythm with a systolic murmur at the right upper and left upper sternal border with clear breathing sounds bilaterally and mild bilateral lower extremities edema noted ASSESSMENT: Right hip fracture, status post mechanical fall Persistent atrial fibrillation Moderate mitral regurgitation Moderate tricuspid regurgitation History of hypertension Hyponatremia PLAN: No need to repeat echocardiogram as this was performed in the office in March 2024 Continue anticoagulation with Eliquis I will continue the current dose of beta-danny Patient is currently stable from a cardiac standpoint Further recommendations pending patient course Objective - Vital Signs Vital signs: Vital Signs Temp 99.3 F 11/11/24 04:00 Pulse 75 11/11/24 06:20 Resp 16 11/11/24 06:20 BP 133/70 11/11/24 06:20 Pulse Ox 97 11/11/24 06:20 FiO2 Intake & Output 11/10/24 11/10/24 11/11/24 06:59 18:59 06:59 Intake Total 500 473 Output Total 890 1250 1805 Balance -890 750 -1332 Weight 59.1 kg Intake: Intake, IV Titration 200 Amount Sodium Chloride 3%( 200 Hypertonic) 500 ml @ 25 mls/hr IV .Q20H ONE Rx#: [id number] Oral 500 Blood Product 0 273 Rc Pheresis 2 As3 Unit 0 273 [id number] Output: Urine 400 1250 1805 Straight 400 Uretheral (Maria) 650 Urine/Stool Mix 490 Other: Voiding Method Indwelling Catheter Indwelling Catheter - Labs CBC & Chem 7: 11/11/24 02:15 11/11/24 05:18 Labs: Abnormal Lab Results - Last 24 Hours (Table) 11/10/24 11/10/24 11/10/24 Range/Units 05:40 05:40 05:40 RBC 2.99 L (4.10-5.20) X 10*6/uL Hgb 8.4 L (12.0-15.0) g/dL Hct 24.9 L (37.2-46.3) % RDW 14.6 H (11.5-14.5) % Sodium 126 L (135-145) mmol/L Chloride (98-107) mmol/L Carbon Dioxide (22-30) mmol/L Creatinine 0.5 L (0.6-1.5) mg/dL BUN/Creatinine Ratio 31.40 H (12.00-20.00) Ratio Glucose 112 H (70-110) mg/dL POC Glucose (mg/dL) (70-110) mg/dL Calcium 7.5 L (8.7-10.3) mg/dL Iron 26 L (50-170) UG/DL % Saturation 7.03 L (12.00-45.00) Total Bilirubin (0.2-1.3) mg/dL AST 48 H (13-35) U/L Total Protein 4.7 L (6.2-8.2) g/dL Albumin 2.9 L (3.8-4.9) g/dL Urine Osmolality (400-1100) mOsm/kg Ur Random Sodium (40-220) mmol/L Crossmatch 11/10/24 11/10/24 11/10/24 Range/Units 10:41 11:52 16:29 RBC (4.10-5.20) X 10*6/uL Hgb (12.0-15.0) g/dL Hct (37.2-46.3) % RDW (11.5-14.5) % Sodium (135-145) mmol/L Chloride (98-107) mmol/L Carbon Dioxide (22-30) mmol/L Creatinine (0.6-1.5) mg/dL BUN/Creatinine Ratio (12.00-20.00) Ratio Glucose (70-110) mg/dL POC Glucose (mg/dL) 128 H 128 H (70-110) mg/dL Calcium (8.7-10.3) mg/dL Iron (50-170) UG/DL % Saturation (12.00-45.00) Total Bilirubin (0.2-1.3) mg/dL AST (13-35) U/L Total Protein (6.2-8.2) g/dL Albumin (3.8-4.9) g/dL Urine Osmolality (400-1100) mOsm/kg Ur Random Sodium (40-220) mmol/L Crossmatch See Detail 11/10/24 11/10/24 11/10/24 Range/Units 18:04 18:04 19:12 RBC 3.06 L (4.10-5.20) X 10*6/uL Hgb 8.4 L (12.0-15.0) g/dL Hct 25.2 L (37.2-46.3) % RDW (11.5-14.5) % Sodium 116 L* 117 L* (135-145) mmol/L Chloride 91 L 89 L (98-107) mmol/L Carbon Dioxide 21 L 21 L (22-30) mmol/L Creatinine 0.45 L (0.6-1.5) mg/dL BUN/Creatinine Ratio (12.00-20.00) Ratio Glucose 110 H 147 H (70-110) mg/dL POC Glucose (mg/dL) (70-110) mg/dL Calcium 7.5 L 7.6 L (8.7-10.3) mg/dL Iron (50-170) UG/DL % Saturation (12.00-45.00) Total Bilirubin (0.2-1.3) mg/dL AST (13-35) U/L Total Protein (6.2-8.2) g/dL Albumin (3.8-4.9) g/dL Urine Osmolality (400-1100) mOsm/kg Ur Random Sodium (40-220) mmol/L Crossmatch 11/10/24 11/10/24 11/10/24 Range/Units 19:30 19:30 20:32 RBC (4.10-5.20) X 10*6/uL Hgb (12.0-15.0) g/dL Hct (37.2-46.3) % RDW (11.5-14.5) % Sodium (135-145) mmol/L Chloride (98-107) mmol/L Carbon Dioxide (22-30) mmol/L Creatinine (0.6-1.5) mg/dL BUN/Creatinine Ratio (12.00-20.00) Ratio Glucose (70-110) mg/dL POC Glucose (mg/dL) 149 H (70-110) mg/dL Calcium (8.7-10.3) mg/dL Iron (50-170) UG/DL % Saturation (12.00-45.00) Total Bilirubin (0.2-1.3) mg/dL AST (13-35) U/L Total Protein (6.2-8.2) g/dL Albumin (3.8-4.9) g/dL Urine Osmolality 258 L (400-1100) mOsm/kg Ur Random Sodium <20 L (40-220) mmol/L Crossmatch 11/10/24 11/11/24 11/11/24 Range/Units 21:56 00:26 00:28 RBC (4.10-5.20) X 10*6/uL Hgb (12.0-15.0) g/dL Hct (37.2-46.3) % RDW (11.5-14.5) % Sodium 116 L* (135-145) mmol/L Chloride (98-107) mmol/L Carbon Dioxide (22-30) mmol/L Creatinine (0.6-1.5) mg/dL BUN/Creatinine Ratio (12.00-20.00) Ratio Glucose (70-110) mg/dL POC Glucose (mg/dL) 115 H 121 H (70-110) mg/dL Calcium (8.7-10.3) mg/dL Iron (50-170) UG/DL % Saturation (12.00-45.00) Total Bilirubin (0.2-1.3) mg/dL AST (13-35) U/L Total Protein (6.2-8.2) g/dL Albumin (3.8-4.9) g/dL Urine Osmolality (400-1100) mOsm/kg Ur Random Sodium (40-220) mmol/L Crossmatch 11/11/24 11/11/24 11/11/24 Range/Units 02:15 02:15 05:18 RBC 3.32 L (4.10-5.20) X 10*6/uL Hgb 9.6 L D (12.0-15.0) g/dL Hct 28.5 L (37.2-46.3) % RDW (11.5-14.5) % Sodium 116 L* 121 L (135-145) mmol/L Chloride 92 L 96 L (98-107) mmol/L Carbon Dioxide 21 L (22-30) mmol/L Creatinine 0.48 L 0.47 L (0.6-1.5) mg/dL BUN/Creatinine Ratio (12.00-20.00) Ratio Glucose 102 H (70-110) mg/dL POC Glucose (mg/dL) (70-110) mg/dL Calcium 7.4 L 7.7 L (8.7-10.3) mg/dL Iron (50-170) UG/DL % Saturation (12.00-45.00) Total Bilirubin 1.5 H (0.2-1.3) mg/dL AST 55 H (13-35) U/L Total Protein 4.7 L (6.2-8.2) g/dL Albumin 2.5 L (3.8-4.9) g/dL Urine Osmolality (400-1100) mOsm/kg Ur Random Sodium (40-220) mmol/L Crossmatch
[2024-11-11 07:50] LABS: Basophils % (A) 0 %; Eosinophils # (A) 0.1 k/uL (0-0.7); Eosinophils % (A) 1 %; HCT 29.3 % (34.0-46.0); HGB 9.9 gm/dL (11.4-16.0); Lymphocytes # (A) 2.8 k/uL (1.0-4.8); Lymphocytes % (A) 34 %; MCH 28.5 pg (25.0-35.0); MCHC 33.8 g/dL (31.0-37.0); MCV 84.3 fL (80.0-100.0); Mean Platelet Volume 7.3; Monocytes # (A) 0.2 k/uL (0-1.0); Monocytes % (A) 3 %; Neutrophils # (A) 5.1 k/uL (1.3-7.7); Neutrophils % (A) 61 %; Platelet Count 159 k/uL (150-450); RBC 3.47 m/uL (3.80-5.40); WBC 8.3 k/uL (3.8-10.6)
--- NOTE | 2024-11-11 09:54 | P.NPCON ---
History of Present Illness - Reason for Consult hyponatremia - History of Present Illness Reason for consultation: Hyponatremia History of present illness: Patient is 89-year-old female seen in renal consultation for hyponatremia. Patient sodium level on admission November 07, 2024 was 129 and improved to 130 on November 09. Since then was progressively starting to drop and came down to 116 as of November 11 at 2 AM. Patient was noted to be more confused and was transferred to the ICU and received 3% saline overnight. Sodium level this morning was 121 and 3% was discontinued. Repeat sodium level at 7:30 AM was 124. Urine output the last 3 hours was 300 350 cc an hour. Patient came to the hospital after she sustained a fall while going to worship. She lost her balance and was noted to have pain on her right leg. She was noted to have displaced right femur fracture and underwent trochanteric intramedullary nailing on November 08, 2024. She denies personal history of malignancy. She has been eating. Patient states she has been drinking quite a bit of fluids but unable to quantify. No chest pa in or shortness of breath. Vital signs are stable. General: No acute distress. HEENT: Head exam is unremarkable. On nasal cannula. LUNGS: No audible rhonchi or wheezes. HEART: Rate and Rhythm are regular. ABDOMEN: Nontender. EXTREMITITES: No edema. Past Medical History Past Medical History: Atrial Fibrillation, CVA/TIA, Skin Disorder Additional Past Medical History / Comment(s): WOUND RT FOOT,SWELLING RT LEG/FOOT,PVD History of Any Multi-Drug Resistant Organisms: None Reported Past Surgical History: Section, Hysterectomy Additional Past Surgical History / Comment(s): RLE vein Ablation 12-01-14 Past Anesthesia/Blood Transfusion Reactions: No Reported Reaction Past Psychological History: No Psychological Hx Reported Smoking Status: Never smoker Past Alcohol Use History: Occasional Past Drug Use History: None Reported - Past Family History Mother Additional Family Medical History / Comment(s): PVD Medications and Allergies Home Medications Medication Instructions Recorded Confirmed Type Apixaban [Eliquis] 5 mg PO BID 11/07/24 11/07/24 History Atorvastatin [Lipitor] 20 mg PO DAILY 11/07/24 11/07/24 History Furosemide [Lasix] 20 mg PO DAILY 11/07/24 11/07/24 History Metoprolol Tartrate [Lopressor] 25 mg PO BID 11/07/24 11/07/24 History amLODIPine [Norvasc] 2.5 mg PO DAILY 11/07/24 11/07/24 History Allergies Allergy/AdvReac Type Severity Reaction Status Date / Time shellfish derived [Shellfish] Allergy Rash/Hives Verified 11/08/24 14:34 Physical Exam Vitals: Vital Signs Temp Pulse Pulse Resp BP BP Pulse Ox 11/11/24 08:36 98 11/11/24 07:10 66 16 129/62 98 11/11/24 07:00 76 17 133/70 97 11/11/24 06:50 73 16 133/70 96 11/11/24 06:40 13 133/70 95 11/11/24 06:30 89 24 133/70 95 11/11/24 06:20 75 16 133/70 97 11/11/24 06:10 69 18 133/70 97 11/11/24 06:00 79 20 120/67 96 11/11/24 05:50 25 H 120/67 98 11/11/24 05:40 70 16 120/67 98 11/11/24 05:30 66 18 120/67 96 11/11/24 05:20 32 H 120/67 98 11/11/24 05:10 68 19 120/67 96 11/11/24 05:00 70 20 121/68 98 11/11/24 04:50 71 16 121/68 99 11/11/24 04:40 60 19 121/68 98 11/11/24 04:30 71 19 121/68 98 11/11/24 04:20 75 17 121/68 98 11/11/24 04:10 75 18 121/68 97 11/11/24 04:00 99.3 F 72 73 17 118/59 98 11/11/24 03:50 69 18 118/59 99 11/11/24 03:40 70 17 118/59 98 11/11/24 03:30 73 16 118/59 97 11/11/24 03:20 80 18 118/59 97 11/11/24 03:10 74 18 118/59 97 11/11/24 03:00 67 19 131/68 97 11/11/24 02:50 76 17 131/68 97 11/11/24 02:40 71 17 131/68 97 11/11/24 02:30 67 17 131/68 97 11/11/24 02:20 81 19 131/68 95 11/11/24 02:10 87 20 131/68 95 11/11/24 02:00 87 20 132/78 96 11/11/24 01:50 93 21 132/78 95 11/11/24 01:40 93 22 132/78 94 L 11/11/24 01:30 87 20 132/78 96 11/11/24 01:20 79 17 132/78 96 11/11/24 01:10 101 H 20 132/78 11/11/24 01:00 106 H 18 143/91 11/11/24 00:50 104 H 17 143/91 88 L 11/11/24 00:40 110 H 18 143/91 94 L 11/11/24 00:30 101 H 17 143/91 95 11/11/24 00:20 90 20 143/91 95 11/11/24 00:10 81 17 143/91 96 11/11/24 00:00 101.1 F H 93 105 H 24 132/67 95 11/10/24 23:50 101 H 22 132/67 95 11/10/24 23:40 87 22 132/67 97 11/10/24 23:30 98 25 H 132/67 97 11/10/24 23:20 89 21 132/67 96 11/10/24 23:10 98 19 132/67 97 11/10/24 23:07 89 20 132/67 96 11/10/24 23:00 92 20 161/93 97 11/10/24 22:50 91 19 161/93 98 11/10/24 22:48 106 H 11/10/24 22:40 100 21 161/93 97 11/10/24 22:30 118 H 22 161/93 95 11/10/24 22:20 135 H 19 161/93 94 L 11/10/24 22:13 110 H 24 161/93 96 11/10/24 20:56 98.5 F 118 H 19 142/55 96 11/10/24 20:00 112 H 11/10/24 19:59 98.5 F 104 H 18 128/65 97 11/10/24 19:53 97.4 F L 126 H 16 128/65 97 11/10/24 19:08 98.5 F 103 H 18 132/67 97 11/10/24 19:05 98.5 F 109 H 20 132/67 11/10/24 18:45 126 H 20 129/62 11/10/24 18:35 98.2 F 102 H 16 130/67 95 11/10/24 16:41 96 11/10/24 14:00 98.2 F 104 H 17 132/65 96 11/10/24 13:47 91 Intake and Output 11/10/24 11/11/24 11/11/24 22:59 06:59 14:59 Intake Total 523 200 Output Total 1000 1405 25 Balance -527 -1205 -25 Intake: Intake, IV Titration 200 Amount Sodium Chloride 3%( 200 Hypertonic) 500 ml @ 25 mls/hr IV .Q20H ONE Rx#: [id number] Oral 250 Blood Product 273 Rc Pheresis 2 As3 Unit 273 [id number] Output: Urine 1000 1405 25 Other: Voiding Method Indwelling Catheter Indwelling Catheter Weight 59.1 kg Results - Lab Results Most recent lab results Calcium 7.7 mg/dL (8.4-10.2) L 11/11/24 05:18 Magnesium 1.6 mg/dL (1.6-2.3) 11/11/24 02:15 11/11/24 07:37 11/11/24 07:37 Assessment and Plan Plan: Assessment: 1. Acute symptomatic hyponatremia secondary to poor solute intake and component of SIADH with sodium level 130 dated November 09, 2024 at 3:25 AM and 126 on November 10, 2024 at 5:40 AM. Sodium level dropped down to 116 on November 10 and now improving status post 3% saline. Urine sodium less than 20 and urine osmolality 258. Cortisol not low. TSH normal. It appears patient does have chronic hyponatremia sodium level noted to be low on October 25, 2021 at 131. 2. Status post fall with right femur fracture status post trochanteric nailing November 08, 2024. 3. Benign hypertension. Controlled. Plan: Start D5W at 150 cc an hour. Repeat sodium level at noon. Goal is to maintain sodium level in the mid 120s today. Thank you for the consultation. I will continue to follow the patient with you during her hospital stay.
[2024-11-11] MEDS: DEXTROSE 5% IN WATER 1,000 ML IV ONE (10:04)
--- NOTE | 2024-11-11 10:06 | P.CNPUL ---
History of Present Illness Consult date: 11/11/24 Requesting physician: Henry German Chief complaint: ICU management History of present illness: Patient is an 89 year old female with past medical history of atrial fibrillation, CVA/TIA, presented to the ED on 11/07/24 after a fall while trying to get in her car to go home from [facility]. She was diagnosed with a displaced r ight intertrochanteric femur fracture and underwent Trochanteric intramedullary nailing on 11/08/24. After the surgery her blood pressure was reported to be on the lower side. A day after her surgery her Hb 9.7 and Na was dropping. Initially the sodium improved with IV fluids. She denied any symptoms of dizziness or lightheadedness. Last night her Na dropped to 117 and her Hb 8.4. She received 1 unit of PRBC. She was put on seizure precautions and moved to the ICU. She was started on 3% Normal saline drip overnight. In the morning her Na improved to 124 and 3% NS was discontinued. Today she is resting comfortably on 2L of oxygen. Vital signs are stable with blood pressure at 129/62. Denies any acute complains. Labs today show WBC 8.3, hemoglobin 9.9, sodium 124, creatinine 0.47, calcium 7.7, total bilirubin 1.5, AST 55, total protein 4.7. Cortisol 20.9, urine osmolality 258, urine random sodium less than 20, TSH 2.62. Chest x-ray done today shows COPD changes with similar scattered reticular opacities which may represent pulmonary fibrotic changes versus atypical pneumonia. Cepheid 4 Plex is negative. Past Medical History Past Medical History: Atrial Fibrillation, CVA/TIA, Skin Disorder Additional Past Medical History / Comment(s): WOUND RT FOOT,SWELLING RT LEG/FOOT,PVD History of Any Multi-Drug Resistant Organisms: None Reported Past Surgical History: Section, Hysterectomy Additional Past Surgical History / Comment(s): RLE vein Ablation 12-01-14 Past Anesthesia/Blood Transfusion Reactions: No Reported Reaction Past Psychological History: No Psychological Hx Reported Smoking Status: Never smoker Past Alcohol Use History: Occasional Past Drug Use History: None Reported - Past Family History Mother Additional Family Medical History / Comment(s): PVD Medications and Allergies Home Medications Medication Instructions Recorded Confirmed Type Apixaban [Eliquis] 5 mg PO BID 11/07/24 11/07/24 History Atorvastatin [Lipitor] 20 mg PO DAILY 11/07/24 11/07/24 History Furosemide [Lasix] 20 mg PO DAILY 11/07/24 11/07/24 History Metoprolol Tartrate [Lopressor] 25 mg PO BID 11/07/24 11/07/24 History amLODIPine [Norvasc] 2.5 mg PO DAILY 11/07/24 11/07/24 History Allergies Allergy/AdvReac Type Severity Reaction Status Date / Time shellfish derived [Shellfish] Allergy Rash/Hives Verified 11/08/24 14:34 Physical Exam Vitals: Vital Signs Temp Pulse Pulse Resp BP BP Pulse Ox 11/11/24 08:36 98 11/11/24 07:10 66 16 129/62 98 11/11/24 07:00 76 17 133/70 97 11/11/24 06:50 73 16 133/70 96 11/11/24 06:40 13 133/70 95 11/11/24 06:30 89 24 133/70 95 11/11/24 06:20 75 16 133/70 97 11/11/24 06:10 69 18 133/70 97 11/11/24 06:00 79 20 120/67 96 11/11/24 05:50 25 H 120/67 98 11/11/24 05:40 70 16 120/67 98 11/11/24 05:30 66 18 120/67 96 11/11/24 05:20 32 H 120/67 98 11/11/24 05:10 68 19 120/67 96 11/11/24 05:00 70 20 121/68 98 11/11/24 04:50 71 16 121/68 99 11/11/24 04:40 60 19 121/68 98 11/11/24 04:30 71 19 121/68 98 11/11/24 04:20 75 17 121/68 98 11/11/24 04:10 75 18 121/68 97 11/11/24 04:00 99.3 F 72 73 17 118/59 98 11/11/24 03:50 69 18 118/59 99 11/11/24 03:40 70 17 118/59 98 11/11/24 03:30 73 16 118/59 97 11/11/24 03:20 80 18 118/59 97 11/11/24 03:10 74 18 118/59 97 11/11/24 03:00 67 19 131/68 97 11/11/24 02:50 76 17 131/68 97 11/11/24 02:40 71 17 131/68 97 11/11/24 02:30 67 17 131/68 97 11/11/24 02:20 81 19 131/68 95 11/11/24 02:10 87 20 131/68 95 11/11/24 02:00 87 20 132/78 96 11/11/24 01:50 93 21 132/78 95 11/11/24 01:40 93 22 132/78 94 L 11/11/24 01:30 87 20 132/78 96 11/11/24 01:20 79 17 132/78 96 11/11/24 01:10 101 H 20 132/78 11/11/24 01:00 106 H 18 143/91 11/11/24 00:50 104 H 17 143/91 88 L 11/11/24 00:40 110 H 18 143/91 94 L 11/11/24 00:30 101 H 17 143/91 95 11/11/24 00:20 90 20 143/91 95 11/11/24 00:10 81 17 143/91 96 11/11/24 00:00 101.1 F H 93 105 H 24 132/67 95 11/10/24 23:50 101 H 22 132/67 95 11/10/24 23:40 87 22 132/67 97 11/10/24 23:30 98 25 H 132/67 97 11/10/24 23:20 89 21 132/67 96 11/10/24 23:10 98 19 132/67 97 11/10/24 23:07 89 20 132/67 96 11/10/24 23:00 92 20 161/93 97 11/10/24 22:50 91 19 161/93 98 11/10/24 22:48 106 H 11/10/24 22:40 100 21 161/93 97 11/10/24 22:30 118 H 22 161/93 95 11/10/24 22:20 135 H 19 161/93 94 L 11/10/24 22:13 110 H 24 161/93 96 11/10/24 20:56 98.5 F 118 H 19 142/55 96 11/10/24 20:00 112 H 11/10/24 19:59 98.5 F 104 H 18 128/65 97 11/10/24 19:53 97.4 F L 126 H 16 128/65 97 11/10/24 19:08 98.5 F 103 H 18 132/67 97 11/10/24 19:05 98.5 F 109 H 20 132/67 11/10/24 18:45 126 H 20 129/62 11/10/24 18:35 98.2 F 102 H 16 130/67 95 11/10/24 16:41 96 11/10/24 14:00 98.2 F 104 H 17 132/65 96 11/10/24 13:47 91 11/10/24 09:36 105 H 17 Intake and Output 11/10/24 11/11/24 11/11/24 22:59 06:59 14:59 Intake Total 523 200 Output Total 1000 1405 25 Balance -517 -1205 -25 Intake: Intake, IV Titration 200 Amount Sodium Chloride 3%( 200 Hypertonic) 500 ml @ 25 mls/hr IV .Q20H ONE Rx#: [id number] Oral 250 Blood Product 273 Rc Pheresis 2 As3 Unit 273 [id number] Output: Urine 1000 1405 25 Other: Voiding Method Indwelling Catheter Indwelling Catheter Weight 59.1 kg GENERAL EXAM: Revealed 89 year-old female on 2 L nasal cannula HEAD: Normocephalic and atraumatic EYES: Normal reaction of pupils, equal size. NOSE: Clear with pink turbinates. THROAT: No erythema or exudates. NECK: No masses, no JVD. CHEST: No chest wall deformity. LUNGS: Crackles at the bases bilaterally persist. CVS: Irregularly irregular rhythm ABDOMEN: Soft, nontender, no rebound no guarding SKIN: No rashes CENTRAL NERVOUS SYSTEM: Speech slightly slowed to response (reported chronic from previous CVA) Results - Laboratory Findings CBC and BMP: 11/11/24 07:37 11/11/24 07:37 PT/INR, D-dimer PT 11.6 sec (10.0-12.5) 11/07/24 12:33 INR 1.1 (<1.2) 11/07/24 12:33 Abnormal lab findings: Abnormal Labs 11/07/24 11/07/24 11/08/24 12:33 12:33 00:18 RBC Hgb Hct RDW Plt Count 146 L Sodium 129 L Chloride 96 L Carbon Dioxide Creatinine 0.49 L BUN/Creatinine Ratio Glucose 186 H POC Glucose (mg/dL) 128 H Calcium Iron % Saturation Total Bilirubin AST 45 H ALT 37 H Total Protein Albumin Albumin/Globulin Ratio Urine Osmolality Ur Random Sodium Crossmatch 11/08/24 11/08/24 11/08/24 03:26 03:26 11:39 RBC 3.81 L Hgb 10.7 L Hct 32.3 L RDW 14.8 H Plt Count 131 L Sodium 128 L Chloride Carbon Dioxide Creatinine 0.5 L BUN/Creatinine Ratio Glucose 116 H POC Glucose (mg/dL) 115 H Calcium 7.9 L Iron % Saturation Total Bilirubin AST 37 H ALT Total Protein 5.1 L Albumin 3.5 L Albumin/Globulin Ratio Urine Osmolality Ur Random Sodium Crossmatch 11/08/24 11/08/24 11/09/24 18:55 23:59 03:25 RBC 3.41 L Hgb 11.3 L 9.7 L Hct 28.8 L RDW 14.8 H Plt Count 121 L 125 L Sodium Chloride Carbon Dioxide Creatinine BUN/Creatinine Ratio Glucose POC Glucose (mg/dL) 158 H Calcium Iron % Saturation Total Bilirubin AST ALT Total Protein Albumin Albumin/Globulin Ratio Urine Osmolality Ur Random Sodium Crossmatch 11/09/24 11/09/24 11/09/24 03:25 06:14 11:32 RBC Hgb Hct RDW Plt Count Sodium 130 L Chloride Carbon Dioxide Creatinine 0.5 L BUN/Creatinine Ratio 21.80 H Glucose 128 H POC Glucose (mg/dL) 139 H 233 H Calcium 7.8 L Iron % Saturation Total Bilirubin AST 39 H ALT Total Protein 4.8 L Albumin 2.9 L Albumin/Globulin Ratio 1.53 L Urine Osmolality Ur Random Sodium Crossmatch 11/09/24 11/10/24 11/10/24 20:47 02:03 05:40 RBC 2.99 L Hgb 8.4 L Hct 24.9 L RDW 14.6 H Plt Count Sodium Chloride Carbon Dioxide Creatinine BUN/Creatinine Ratio Glucose POC Glucose (mg/dL) 153 H 119 H Calcium Iron % Saturation Total Bilirubin AST ALT Total Protein Albumin Albumin/Globulin Ratio Urine Osmolality Ur Random Sodium Crossmatch 11/10/24 11/10/24 11/10/24 05:40 05:40 06:23 RBC Hgb Hct RDW Plt Count Sodium 126 L Chloride Carbon Dioxide Creatinine 0.5 L BUN/Creatinine Ratio 31.40 H Glucose 112 H POC Glucose (mg/dL) 128 H Calcium 7.5 L Iron 26 L % Saturation 7.03 L Total Bilirubin AST 48 H ALT Total Protein 4.7 L Albumin 2.9 L Albumin/Globulin Ratio Urine Osmolality Ur Random Sodium Crossmatch 11/10/24 11/10/24 11/10/24 10:41 11:52 16:29 RBC Hgb Hct RDW Plt Count Sodium Chloride Carbon Dioxide Creatinine BUN/Creatinine Ratio Glucose POC Glucose (mg/dL) 128 H 128 H Calcium Iron % Saturation Total Bilirubin AST ALT Total Protein Albumin Albumin/Globulin Ratio Urine Osmolality Ur Random Sodium Crossmatch See Detail 11/10/24 11/10/24 11/10/24 18:04 18:04 19:12 RBC 3.06 L Hgb 8.4 L Hct 25.2 L RDW Plt Count Sodium 116 L* 117 L* Chloride 91 L 89 L Carbon Dioxide 21 L 21 L Creatinine 0.45 L BUN/Creatinine Ratio Glucose 110 H 147 H POC Glucose (mg/dL) Calcium 7.5 L 7.6 L Iron % Saturation Total Bilirubin AST ALT Total Protein Albumin Albumin/Globulin Ratio Urine Osmolality Ur Random Sodium Crossmatch 11/10/24 11/10/24 11/10/24 19:30 19:30 20:32 RBC Hgb Hct RDW Plt Count Sodium Chloride Carbon Dioxide Creatinine BUN/Creatinine Ratio Glucose POC Glucose (mg/dL) 149 H Calcium Iron % Saturation Total Bilirubin AST ALT Total Protein Albumin Albumin/Globulin Ratio Urine Osmolality 258 L Ur Random Sodium <20 L Crossmatch 11/10/24 11/11/24 11/11/24 21:56 00:26 00:28 RBC Hgb Hct RDW Plt Count Sodium 116 L* Chloride Carbon Dioxide Creatinine BUN/Creatinine Ratio Glucose POC Glucose (mg/dL) 115 H 121 H Calcium Iron % Saturation Total Bilirubin AST ALT Total Protein Albumin Albumin/Globulin Ratio Urine Osmolality Ur Random Sodium Crossmatch 11/11/24 11/11/24 11/11/24 02:15 02:15 05:18 RBC 3.32 L Hgb 9.6 L D Hct 28.5 L RDW Plt Count Sodium 116 L* 121 L Chloride 92 L 96 L Carbon Dioxide 21 L Creatinine 0.48 L 0.47 L BUN/Creatinine Ratio Glucose 102 H POC Glucose (mg/dL) Calcium 7.4 L 7.7 L Iron % Saturation Total Bilirubin 1.5 H AST 55 H ALT Total Protein 4.7 L Albumin 2.5 L Albumin/Globulin Ratio Urine Osmolality Ur Random Sodium Crossmatch 11/11/24 11/11/24 07:37 07:37 RBC 3.47 L Hgb 9.9 L Hct 29.3 L RDW Plt Count Sodium 124 L Chloride Carbon Dioxide Creatinine BUN/Creatinine Ratio Glucose POC Glucose (mg/dL) Calcium Iron % Saturation Total Bilirubin AST ALT Total Protein Albumin Albumin/Globulin Ratio Urine Osmolality Ur Random Sodium Crossmatch Assessment and Plan Assessment: Symptomatic hyponatremia, secondary to poor solute intake, nephrology is following Normocytic Anemia, post op anemia vs Iron deficiency anemia, S/p 1 unit PRBC on 11/10/24 Displaced Right intertrochanteric femur fracture S/p trochanteric intramedullary nailing on 11/08/24 Atrial fibrillation with RVR, Cardiology is following Hypertension Hyperlipidemia History of CVA Plan: Started on D5W at 150 mL/h Hypertonic saline drip currently discontinued Continue DuoNeb Continue apixaban 2.5 mg p.o. twice daily and metoprolol 75 milligram p.o. twice daily Continue amlodipine 2.5 mg p.o. daily and atorvastatin 20 mg p.o. daily Repeat sodium at noon Time with Patient: Greater than 30
--- NOTE | 2024-11-11 13:29 | P.PN ---
Subjective Progress Note Date: 11/11/24 Hospital Course: Patient is a very pleasant 89-year-old female with a past medical history of c hronic atrial fibrillation on anticoagulation with Eliquis 5 mg twice daily follows with client services specialist Dr. 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 She presented to the emergency department after a fall. Patient reported that she was walking to her vehicle after chart and when walking down the curb to get into her car she lost her balance secondary to her "chronic drag" of her right leg resulting in her falling onto her right hip. Patient adamantly denies hitting her head or having any loss of consciousness. She denies having any dizziness, lightheadedness, chest pain, palpitations, or shortness of breath occurring before or after fall. She reports only injury is to right hip reporting pain throughout right hip and down entire right leg. She denies having any numbness or tingling and is able to wiggle her toes without difficulties. Upon arrival to our facility, patient underwent evaluation in the emergency department. Vital signs upon arrival show blood pressure 176/90, heart rate 118, respiratory rate 18, temp 97.6 F, and SpO2 of 96% on room air. EKG was completed showing atrial fibrillation with RVR to 111 bpm. Chest x-ray completed revealing cardiomegaly but negative for acute cardiopulmonary process. X-ray right knee negative for acute fracture or dislocation. X-ray right hip showing acute displaced intertrochanteric fracture of the right hip. Labs completed and reviewed. CBC showing mild thrombocytopenia with platelet count of 146 otherwise normal findings. Coagulation profile normal finding. BMP showing hyponatremic hypochloremia with sodium of 129 and chloride of 96 otherwise normal findings. Blood glucose was elevated at 186 patient was admitted under orthopedic surgery team and we were consulted for medical clearance and medical management throughout hospitalization and client services specialist was consulted for cardiac clearance. Patient underwent surgery on 11/08, course was complicated by the acute postoperative blood loss anemia with hemoglobin of 8.42 days postop, primary orthopedic team ordered 1 unit of PRBC on 11/10. Patient was also noted to have worsening hyponatremia with sodium decreased from 138-126 and then to 116 requiring transfer to ICU for hypertonic saline, nephrology consulted. Urine sodium less than 20 and urine osmolality 258, cortisol not low and TSH came back normal. 11/11 patient is less confused, knows that she is in the hospital, has adequate oral intake. Sodium went up from 116-124, per nephrology, patient to be started on D5 water at 150 cc/h with goal to maintain sodium level in the mid 120s today. Subjective: Did not have any particular complaint today, states that she feels better Pertinent positives and negatives as discussed above, a complete review of systems was performed and all other systems are negative. Vitals Signs Reviewed. Vital signs reviewed and stable with the exception of mild hypertension and tachycardia. General: Nontoxic, no distress and appears stated age. Derm: Skin warm and dry, normal coloration for ethnicity. Head: Atraumatic, normocephalic and symmetric. Eyes: EOM's intact, no lid lag, and anicteric sclera Mouth: no lip lesions, mucus membranes moist Cardiovascular: Irregularly irregular rhythm, systolic murmur, positive posterior tibial pulses bilaterally, and cap refill < 2 seconds. Lungs: Respirations even, regular, and unlabored on room air. Lungs CTA bilaterally, no rhonchi, no rales, no wheezing, and no accessory muscle usage. Abdominal: soft, nontender to palpation, no guarding, no appreciable organomegaly Ext: No gross muscle atrophy, no edema, no contractures. Movement and sensation intact. Neuro: Speech slightly slowed to response (reported chronic from previous CVA), face symmetrical and CN II-XII grossly intact with no noted focal neuro deficits Psych: Alert and oriented to person, place, could not remember the name of the hospital appropriate and pleasant affect. Data Reviewed Today: Pertinent Labs:Na 124, Hb 9.9 Assessment and Plan: Acute on chronic symptomatic hypochloremic hyponatremia -Na dropped from 138-126 and then to 116 requiring transfer to ICU for hype rtonic saline, nephrology consulted. Urine sodium less than 20 and urine osmolality 258, cortisol not low and TSH came back normal. -11/11 patient is less confused, knows that she is in the hospital, has adequate oral intake. Sodium went up from 116-124, per nephrology, patient to be started on D5 water at 150 cc/h with goal to maintain sodium level in the mid 120s today. Status post trochanteric intramedullary nailing of right three-part intertrochanteric femur fracture Acute displaced intertrochanteric fracture of right hip -Management per orthopedic surgery team including DVT prophylaxis, pain management, wound/dressing management, weightbearing, and PT/OT. -Symptomatic care and pain management with Tylenol 650 mg every 6 hours as needed for mild pain, [place] 5/325 mg tablets every 6 hours as needed for moderate pain, and Dilaudid 0.5 mg every 4 hours as needed for severe pain. -Continue Zofran 4 mg IVP every 8 hours as needed for nausea or vomiting Acute postoperative blood loss anemia -Preoperative hemoglobin 11.3 with current postoperative hemoglobin of 8.4. No active bleeding noted. No large bruising or hematoma noted. Will continue to monitor with repeat morning labs. Patient asymptomatic and denies feeling dizziness/lightheadedness or any shortness of breath. -Posttransfusion hemoglobin 9.9 Atrial fibrillation with RVR, currently rate controlled Hypertension Hyperlipidemia History of CVA with right lower extremity deficits and mild speech deficit Peripheral vascular disease -Patient with mild RVR currently with ventricular rate in 110s. -Eliquis 2.5 mg twice daily was resumed today and patient to continue cardiac medication regimen with amlodipine 2.5 mg daily, atorvastatin 20 mg daily, and metoprolol 50 mg twice daily. -Patient will require continuous telemetry monitoring during preoperative, intraoperative, and postoperative period. -Cardiology following increasing metoprolol to 50 mg twice daily on 11/08/2024. DVT ppx: Eliquis Anticipated discharge place: TBD Anticipated discharge time: TBD Objective - Vital Signs Vital signs: Vital Signs Temp 99.7 F H 11/11/24 08:00 Pulse 74 11/11/24 08:00 Resp 9 L 11/11/24 10:00 BP 131/66 11/11/24 10:00 Pulse Ox 95 11/11/24 10:00 FiO2 Intake & Output 11/10/24 11/11/24 11/11/24 18:59 06:59 18:59 Intake Total 500 473 550 Output Total 1250 3885 961 Balance -179 -6306 75 Weight 59.1 kg Intake: IV 150 Dextrose 5% in Water 1, 150 000 ml @ 150 mls/hr IV . Q6H40M ONE Rx#:[id number] Intake, IV Titration 200 Amount Sodium Chloride 3%( 200 Hypertonic) 500 ml @ 25 mls/hr IV .Q20H ONE Rx#: [id number] Oral 500 400 Blood Product 0 273 Rc Pheresis 2 As3 Unit 0 273 [id number] Output: Urine 1250 1805 475 Uretheral (Maria) 650 Other: Voiding Method Indwelling Catheter Indwelling Catheter Indwelling Catheter - Labs CBC & Chem 7: 11/11/24 07:37 11/11/24 11:37 Labs: Abnormal Lab Results - Last 24 Hours (Table) 11/10/24 11/10/24 11/10/24 Range/Units 05:40 10:41 16:29 RBC (4.10-5.20) X 10*6/uL Hgb (12.0-15.0) g/dL Hct (37.2-46.3) % Sodium (137-145) mmol/L Chloride (98-107) mmol/L Carbon Dioxide (22-30) mmol/L Creatinine (0.52-1.04) mg/dL Glucose (74-99) mg/dL POC Glucose (mg/dL) 128 H (70-110) mg/dL Calcium (8.4-10.2) mg/dL Iron 26 L (50-170) UG/DL % Saturation 7.03 L (12.00-45.00) Total Bilirubin (0.2-1.3) mg/dL AST (14-36) U/L Total Protein (6.3-8.2) g/dL Albumin (3.5-5.0) g/dL Urine Osmolality (400-1100) mOsm/kg Ur Random Sodium (40-220) mmol/L Crossmatch See Detail 11/10/24 11/10/24 11/10/24 Range/Units 18:04 18:04 19:12 RBC 3.06 L (4.10-5.20) X 10*6/uL Hgb 8.4 L (12.0-15.0) g/dL Hct 25.2 L (37.2-46.3) % Sodium 116 L* 117 L* (137-145) mmol/L Chloride 91 L 89 L (98-107) mmol/L Carbon Dioxide 21 L 21 L (22-30) mmol/L Creatinine 0.45 L (0.52-1.04) mg/dL Glucose 110 H 147 H (74-99) mg/dL POC Glucose (mg/dL) (70-110) mg/dL Calcium 7.5 L 7.6 L (8.4-10.2) mg/dL Iron (50-170) UG/DL % Saturation (12.00-45.00) Total Bilirubin (0.2-1.3) mg/dL AST (14-36) U/L Total Protein (6.3-8.2) g/dL Albumin (3.5-5.0) g/dL Urine Osmolality (400-1100) mOsm/kg Ur Random Sodium (40-220) mmol/L Crossmatch 11/10/24 11/10/24 11/10/24 Range/Units 19:30 19:30 20:32 RBC (4.10-5.20) X 10*6/uL Hgb (12.0-15.0) g/dL Hct (37.2-46.3) % Sodium (137-145) mmol/L Chloride (98-107) mmol/L Carbon Dioxide (22-30) mmol/L Creatinine (0.52-1.04) mg/dL Glucose (74-99) mg/dL POC Glucose (mg/dL) 149 H (70-110) mg/dL Calcium (8.4-10.2) mg/dL Iron (50-170) UG/DL % Saturation (12.00-45.00) Total Bilirubin (0.2-1.3) mg/dL AST (14-36) U/L Total Protein (6.3-8.2) g/dL Albumin (3.5-5.0) g/dL Urine Osmolality 258 L (400-1100) mOsm/kg Ur Random Sodium <20 L (40-220) mmol/L Crossmatch 11/10/24 11/11/24 11/11/24 Range/Units 21:56 00:26 00:28 RBC (4.10-5.20) X 10*6/uL Hgb (12.0-15.0) g/dL Hct (37.2-46.3) % Sodium 116 L* (137-145) mmol/L Chloride (98-107) mmol/L Carbon Dioxide (22-30) mmol/L Creatinine (0.52-1.04) mg/dL Glucose (74-99) mg/dL POC Glucose (mg/dL) 115 H 121 H (70-110) mg/dL Calcium (8.4-10.2) mg/dL Iron (50-170) UG/DL % Saturation (12.00-45.00) Total Bilirubin (0.2-1.3) mg/dL AST (14-36) U/L Total Protein (6.3-8.2) g/dL Albumin (3.5-5.0) g/dL Urine Osmolality (400-1100) mOsm/kg Ur Random Sodium (40-220) mmol/L Crossmatch 11/11/24 11/11/24 11/11/24 Range/Units 02:15 02:15 05:18 RBC 3.32 L (4.10-5.20) X 10*6/uL Hgb 9.6 L D (12.0-15.0) g/dL Hct 28.5 L (37.2-46.3) % Sodium 116 L* 121 L (137-145) mmol/L Chloride 92 L 96 L (98-107) mmol/L Carbon Dioxide 21 L (22-30) mmol/L Creatinine 0.48 L 0.47 L (0.52-1.04) mg/dL Glucose 102 H (74-99) mg/dL POC Glucose (mg/dL) (70-110) mg/dL Calcium 7.4 L 7.7 L (8.4-10.2) mg/dL Iron (50-170) UG/DL % Saturation (12.00-45.00) Total Bilirubin 1.5 H (0.2-1.3) mg/dL AST 55 H (14-36) U/L Total Protein 4.7 L (6.3-8.2) g/dL Albumin 2.5 L (3.5-5.0) g/dL Urine Osmolality (400-1100) mOsm/kg Ur Random Sodium (40-220) mmol/L Crossmatch 11/11/24 11/11/24 11/11/24 Range/Units 07:37 07:37 11:37 RBC 3.47 L (4.10-5.20) X 10*6/uL Hgb 9.9 L (12.0-15.0) g/dL Hct 29.3 L (37.2-46.3) % Sodium 124 L 122 L (137-145) mmol/L Chloride (98-107) mmol/L Carbon Dioxide (22-30) mmol/L Creatinine (0.52-1.04) mg/dL Glucose (74-99) mg/dL POC Glucose (mg/dL) (70-110) mg/dL Calcium (8.4-10.2) mg/dL Iron (50-170) UG/DL % Saturation (12.00-45.00) Total Bilirubin (0.2-1.3) mg/dL AST (14-36) U/L Total Protein (6.3-8.2) g/dL Albumin (3.5-5.0) g/dL Urine Osmolality (400-1100) mOsm/kg Ur Random Sodium (40-220) mmol/L Crossmatch
--- NOTE | 2024-11-11 13:42 | P.PN ---
Subjective Progress Note Date: 11/11/24 Principal diagnosis: Displaced right intertrochanteric femur fracture Patient evaluated at bedside, she is resting comfortably in her hospital chair. Patient was transferred to the ICU due to severely low sodiums, she is being followed by multiple medical specialties pain is controlled with current medications. Urinary catheter was once again placed due to urinary retention. Denies headaches, pain or shortness of breath Objective - Vital Signs Vital signs: Vital Signs Temp 99.7 F H 11/11/24 08:00 Pulse 74 11/11/24 08:00 Resp 9 L 11/11/24 10:00 BP 131/66 11/11/24 10:00 Pulse Ox 95 11/11/24 10:00 FiO2 Intake & Output 11/10/24 11/11/24 11/11/24 18:59 06:59 18:59 Intake Total 500 473 550 Output Total 1250 1805 475 Balance -750 -1332 75 Weight 59.1 kg Intake: IV 150 Dextrose 5% in Water 1, 150 000 ml @ 150 mls/hr IV . Q6H40M ONE Rx#:[id number] Intake, IV Titration 200 Amount Sodium Chloride 3%( 200 Hypertonic) 500 ml @ 25 mls/hr IV .Q20H ONE Rx#: [id number] Oral 500 400 Blood Product 0 273 Rc Pheresis 2 As3 Unit 0 273 [id number] Output: Urine 1250 1805 475 Uretheral (Maria) 650 Other: Voiding Method Indwelling Catheter Indwelling Catheter Indwelling Catheter - Exam Right lower extremity: Postop dressing is in good positioning condition Patient demonstrates pain with palpation to the proximal right thigh, she is nontender surrounding the knee, lower leg, foot or ankle Plantarflexion, dorsiflexion, EHL, FHL are intact. Calf is soft, no tenderness with palpation Sensory exam to light touch is intact throughout the extremity Dorsalis pedis pulses 2+ - Labs CBC & Chem 7: 11/11/24 07:37 11/11/24 11:37 Labs: Abnormal Lab Results - Last 24 Hours (Table) 11/10/24 11/10/24 11/10/24 Range/Units 05:40 10:41 16:29 RBC (4.10-5.20) X 10*6/uL Hgb (12.0-15.0) g/dL Hct (37.2-46.3) % Sodium (137-145) mmol/L Chloride (98-107) mmol/L Carbon Dioxide (22-30) mmol/L Creatinine (0.52-1.04) mg/dL Glucose (74-99) mg/dL POC Glucose (mg/dL) 128 H (70-110) mg/dL Calcium (8.4-10.2) mg/dL Iron 26 L (50-170) UG/DL % Saturation 7.03 L (12.00-45.00) Total Bilirubin (0.2-1.3) mg/dL AST (14-36) U/L Total Protein (6.3-8.2) g/dL Albumin (3.5-5.0) g/dL Urine Osmolality (400-1100) mOsm/kg Ur Random Sodium (40-220) mmol/L Crossmatch See Detail 11/10/24 11/10/24 11/10/24 Range/Units 18:04 18:04 19:12 RBC 3.06 L (4.10-5.20) X 10*6/uL Hgb 8.4 L (12.0-15.0) g/dL Hct 25.2 L (37.2-46.3) % Sodium 116 L* 117 L* (137-145) mmol/L Chloride 91 L 89 L (98-107) mmol/L Carbon Dioxide 21 L 21 L (22-30) mmol/L Creatinine 0.45 L (0.52-1.04) mg/dL Glucose 110 H 147 H (74-99) mg/dL POC Glucose (mg/dL) (70-110) mg/dL Calcium 7.5 L 7.6 L (8.4-10.2) mg/dL Iron (50-170) UG/DL % Saturation (12.00-45.00) Total Bilirubin (0.2-1.3) mg/dL AST (14-36) U/L Total Protein (6.3-8.2) g/dL Albumin (3.5-5.0) g/dL Urine Osmolality (400-1100) mOsm/kg Ur Random Sodium (40-220) mmol/L Crossmatch 11/10/24 11/10/24 11/10/24 Range/Units 19:30 19:30 20:32 RBC (4.10-5.20) X 10*6/uL Hgb (12.0-15.0) g/dL Hct (37.2-46.3) % Sodium (137-145) mmol/L Chloride (98-107) mmol/L Carbon Dioxide (22-30) mmol/L Creatinine (0.52-1.04) mg/dL Glucose (74-99) mg/dL POC Glucose (mg/dL) 149 H (70-110) mg/dL Calcium (8.4-10.2) mg/dL Iron (50-170) UG/DL % Saturation (12.00-45.00) Total Bilirubin (0.2-1.3) mg/dL AST (14-36) U/L Total Protein (6.3-8.2) g/dL Albumin (3.5-5.0) g/dL Urine Osmolality 258 L (400-1100) mOsm/kg Ur Random Sodium <20 L (40-220) mmol/L Crossmatch 11/10/24 11/11/24 11/11/24 Range/Units 21:56 00:26 00:28 RBC (4.10-5.20) X 10*6/uL Hgb (12.0-15.0) g/dL Hct (37.2-46.3) % Sodium 116 L* (137-145) mmol/L Chloride (98-107) mmol/L Carbon Dioxide (22-30) mmol/L Creatinine (0.52-1.04) mg/dL Glucose (74-99) mg/dL POC Glucose (mg/dL) 115 H 121 H (70-110) mg/dL Calcium (8.4-10.2) mg/dL Iron (50-170) UG/DL % Saturation (12.00-45.00) Total Bilirubin (0.2-1.3) mg/dL AST (14-36) U/L Total Protein (6.3-8.2) g/dL Albumin (3.5-5.0) g/dL Urine Osmolality (400-1100) mOsm/kg Ur Random Sodium (40-220) mmol/L Crossmatch 11/11/24 11/11/24 11/11/24 Range/Units 02:15 02:15 05:18 RBC 3.32 L (4.10-5.20) X 10*6/uL Hgb 9.6 L D (12.0-15.0) g/dL Hct 28.5 L (37.2-46.3) % Sodium 116 L* 121 L (137-145) mmol/L Chloride 92 L 96 L (98-107) mmol/L Carbon Dioxide 21 L (22-30) mmol/L Creatinine 0.48 L 0.47 L (0.52-1.04) mg/dL Glucose 102 H (74-99) mg/dL POC Glucose (mg/dL) (70-110) mg/dL Calcium 7.4 L 7.7 L (8.4-10.2) mg/dL Iron (50-170) UG/DL % Saturation (12.00-45.00) Total Bilirubin 1.5 H (0.2-1.3) mg/dL AST 55 H (14-36) U/L Total Protein 4.7 L (6.3-8.2) g/dL Albumin 2.5 L (3.5-5.0) g/dL Urine Osmolality (400-1100) mOsm/kg Ur Random Sodium (40-220) mmol/L Crossmatch 11/11/24 11/11/24 11/11/24 Range/Units 07:37 07:37 11:37 RBC 3.47 L (4.10-5.20) X 10*6/uL Hgb 9.9 L (12.0-15.0) g/dL Hct 29.3 L (37.2-46.3) % Sodium 124 L 122 L (137-145) mmol/L Chloride (98-107) mmol/L Carbon Dioxide (22-30) mmol/L Creatinine (0.52-1.04) mg/dL Glucose (74-99) mg/dL POC Glucose (mg/dL) (70-110) mg/dL Calcium (8.4-10.2) mg/dL Iron (50-170) UG/DL % Saturation (12.00-45.00) Total Bilirubin (0.2-1.3) mg/dL AST (14-36) U/L Total Protein (6.3-8.2) g/dL Albumin (3.5-5.0) g/dL Urine Osmolality (400-1100) mOsm/kg Ur Random Sodium (40-220) mmol/L Crossmatch Assessment and Plan Assessment: Postoperative day #3 status post IM nail right intertrochanteric femur fracture Status post fall from standing Acute blood loss anemia, expected surgical outcome Hyponatremia A-fib Other medical comorbidities Plan: Pain control, continue current regimen DVT prophylaxis, eliquis 2.5mg bid Monitor surgical dressing Regular diet Encourage encentive spirometer Weight-bear as tolerated, walker at all times Medical and cardiac recommendations appreciated PT/OT recommendations appreciated Discharge planning: orthopedically patient is stable, our service will be available as needed, please contact our services with any questions Time with Patient: Less than 30
[2024-11-11] MEDS: BENZONATATE 100 MG CAP PO PRN (15:35)
[2024-11-11] MEDS: SODIUM CHLORIDE 3%(HYPERTONIC) 500 ML IV ONE (16:42)
[2024-11-12 00:07] LABS: Glucose,Whole Blood 107 mg/dL (70-110)
[2024-11-12 05:44] LABS: Basophils % (A) 0 %; Eosinophils # (A) 0.1 k/uL (0-0.7); Eosinophils % (A) 1 %; HCT 29.9 % (34.0-46.0); HGB 10.2 gm/dL (11.4-16.0); Lymphocytes # (A) 3.1 k/uL (1.0-4.8); Lymphocytes % (A) 38 %; MCH 28.9 pg (25.0-35.0); MCHC 34.1 g/dL (31.0-37.0); MCV 84.7 fL (80.0-100.0); Mean Platelet Volume 7.1; Monocytes # (A) 0.2 k/uL (0-1.0); Monocytes % (A) 2 %; Neutrophils # (A) 4.6 k/uL (1.3-7.7); Neutrophils % (A) 57 %; Platelet Count 190 k/uL (150-450); RBC 3.53 m/uL (3.80-5.40); RDW 14.1 % (11.5-15.5); WBC 8.1 k/uL (3.8-10.6)
[2024-11-12 05:56] LABS: African American GFR (CKD) >90 (>60 ml/min/1.73 sqM); Anion Gap 2 mmol/L; Blood Urea Nitrogen 11 mg/dL (7-17); Calcium 7.7 mg/dL (8.4-10.2); Carbon Dioxide 25 mmol/L (22-30); Chloride 95 mmol/L (98-107); Glucose 91 mg/dL (74-99); Non-African American GFR(CKD) 90 (>60 ml/min/1.73 sqM); Potassium 3.9 mmol/L (3.5-5.1); Sodium 122 mmol/L (137-145)
--- NOTE | 2024-11-12 06:56 | P.PN ---
Subjective Progress Note Date: 11/12/24 The patient is a pleasant 89-year-old female patient with a past medical history significant for atrial fibrillation as well as valvular heart disease who was admitted to the hospital because of hip surgery. Subsequently she developed hyponatremia and she was transferred to the intensive care unit. November 11, 2024 The patient was seen and evaluated this morning. She is asymptomatic. The dose of beta-danny has increased yesterday and she remains in atrial fibrillation with overall controlled heart rate on the current medical regimen. She is on oral anticoagulation with Eliquis. The physical examination is remarkable for irregular rhythm with a systolic murmur at the right upper and left upper sternal border with clear breathing sounds bilaterally and mild bilateral lower extremities edema noted November 12, 2024 The patient was seen and evaluated this morning she has been experiencing cough and she seems to be slightly congested. The most recent chest x-ray from showed COPD and possible atypical pneumonia. From the cardiovascular standpoint of view, she remains in atrial fibrillation with controlled heart rate on the current dose of beta-danny and also she is on oral anticoagulation and has been tolerating that well. The physical examination is remarkable for irregular rhythm with bilateral expiratory wheezing and mild bilateral lower extremities edema ASSESSMENT: Right hip fracture, status post mechanical fall Persistent atrial fibrillation Moderate mitral regurgitation Moderate tricuspid regurgitation History of hypertension Hyponatremia PLAN: No need to repeat echocardiogram as this was performed in the office in March 2024 Continue anticoagulation with Eliquis I will continue the current dose of beta-danny Patient is currently stable from a cardiac standpoint Follow-up with the patient on as needed case Objective - Vital Signs Vital signs: Vital Signs Temp 97.8 F 11/12/24 04:00 Pulse 82 11/12/24 06:00 Resp 22 11/12/24 06:00 BP 135/76 11/12/24 06:00 Pulse Ox 95 11/12/24 06:00 FiO2 Intake & Output 11/11/24 11/11/24 11/12/24 06:59 18:59 06:59 Intake Total 473 600 230 Output Total 1805 1200 1360 Balance -7352 600 -1130 Weight 59.1 kg 60.6 kg Intake: IV 200 230 Dextrose 5% in Water 1, 150 000 ml @ 150 mls/hr IV . Q6H40M ONE Rx#:[id number] Sodium Chloride 3%( 50 50 Hypertonic) 500 ml @ 25 mls/hr IV .Q20H ONE Rx#: [id number] Sodium Chloride 3%( 180 Hypertonic) 500 ml @ 30 mls/hr IV .[id number] ONE Rx #:[id number] Intake, IV Titration 200 Amount Sodium Chloride 3%( 200 Hypertonic) 500 ml @ 25 mls/hr IV .Q20H ONE Rx#: [id number] Oral 400 Blood Product 273 Rc Pheresis 2 As3 Unit 273 [id number] Output: Urine 1805 1200 1360 Other: Voiding Method Indwelling Catheter Indwelling Catheter Indwelling Catheter # Bowel Movements 1 - Labs CBC & Chem 7: 11/12/24 05:37 11/12/24 05:37 Labs: Abnormal Lab Results - Last 24 Hours (Table) 11/11/24 11/11/24 11/11/24 Range/Units 07:37 07:37 11:37 RBC 3.47 L (3.80-5.40) m/uL Hgb 9.9 L (11.4-16.0) gm/dL Hct 29.3 L (34.0-46.0) % Sodium 124 L 122 L (137-145) mmol/L Chloride (98-107) mmol/L Creatinine (0.52-1.04) mg/dL Calcium (8.4-10.2) mg/dL 11/11/24 11/11/24 11/11/24 Range/Units 15:18 19:21 21:12 RBC (3.80-5.40) m/uL Hgb (11.4-16.0) gm/dL Hct (34.0-46.0) % Sodium 117 L* 118 L* 120 L (137-145) mmol/L Chloride (98-107) mmol/L Creatinine (0.52-1.04) mg/dL Calcium (8.4-10.2) mg/dL 11/11/24 11/12/24 11/12/24 Range/Units 23:54 01:54 03:51 RBC (3.80-5.40) m/uL Hgb (11.4-16.0) gm/dL Hct (34.0-46.0) % Sodium 120 L 122 L 122 L (137-145) mmol/L Chloride (98-107) mmol/L Creatinine (0.52-1.04) mg/dL Calcium (8.4-10.2) mg/dL 11/12/24 11/12/24 Range/Units 05:37 05:37 RBC 3.53 L (3.80-5.40) m/uL Hgb 10.2 L (11.4-16.0) gm/dL Hct 29.9 L (34.0-46.0) % Sodium 122 L (137-145) mmol/L Chloride 95 L (98-107) mmol/L Creatinine 0.45 L (0.52-1.04) mg/dL Calcium 7.7 L (8.4-10.2) mg/dL
[2024-11-12] MEDS ORDERED: Potassium Replacement Protocol 1 EACH MISC MISCELLANE PRN (07:23)
[2024-11-12] MEDS: POTASSIUM CHLORIDE ER 20 MEQ TAB.ER PO SCH (08:30)
--- NOTE | 2024-11-12 09:38 | P.PN ---
Subjective Progress Note Date: 11/12/24 Principal diagnosis: Hospital course: Symptomatic hyponatremia, Post op anemia Patient is an 89 year old female with past medical history of atrial fibri llation, CVA/TIA, presented to the ED on 11/07/24 after a fall while trying to get in her car to go home from [facility]. She was diagnosed with a displaced right intertrochanteric femur fracture and underwent Trochanteric intramedullary nailing on 11/08/24. After the surgery her blood pressure was reported to be on the lower side. A day after her surgery her Hb 9.7 and Na was dropping. Initially the sodium improved with IV fluids. She denied any symptoms of dizziness or lightheadedness. Last night her Na dropped to 117 and her Hb 8.4. She received 1 unit of PRBC. She was put on seizure precautions and moved to the ICU. She was started on 3% Normal saline drip overnight. In the morning her Na improved to 124 and 3% NS was discontinued. Today she is resting comfortably on 2L of oxygen. Vital signs are stable with blood pressure at 129/62. Denies any acute complains. Labs today show WBC 8.3, hemoglobin 9.9, sodium 124, creatinine 0.47, calcium 7.7, total bilirubin 1.5, AST 55, total protein 4.7. Cortisol 20.9, urine osmolality 258, urine random sodium less than 20, TSH 2.62. Chest x-ray done today shows COPD changes with similar scattered reticular opacities which may represent pulmonary fibrotic changes versus atypical pneumonia. Cepheid 4 Plex is negative. 11/12/24: Patient seen and examined at bedside today. She remains in the ICU. She is on 3.5L of oxygen and is saturating at 95%. She denies any acute complains. Last night her Na dropped down to 118 and she was started on 3% hypertonic saline which was discontinued 2:40am this morning. Yesterday she was started on D5W which is also discontinued. Labs today show WBC 8.1, hemoglobin 10.2, sodium 122, potassium 3.9, creatinine 0.45, calcium 7.7. Objective - Vital Signs Vital signs: Vital Signs Temp 97.9 F 11/12/24 08:00 Pulse 106 H 11/12/24 09:00 Resp 24 11/12/24 09:00 BP 127/64 11/12/24 09:00 Pulse Ox 95 11/12/24 09:00 FiO2 Intake & Output 11/11/24 11/12/24 11/12/24 18:59 06:59 18:59 Intake Total 600 230 90 Output Total 1200 1360 305 Balance -600 -1130 -215 Weight 60.6 kg Intake: IV 200 230 90 Dextrose 5% in Water 1, 150 000 ml @ 150 mls/hr IV . Q6H40M ONE Rx#:[id number] Sodium Chloride 3%( 50 50 Hypertonic) 500 ml @ 25 mls/hr IV .Q20H ONE Rx#: [id number] Sodium Chloride 3%( 180 90 Hypertonic) 500 ml @ 30 mls/hr IV .[id number] ONE Rx #:[id number] Oral 400 Output: Urine 1200 1360 305 Other: Voiding Method Indwelling Catheter Indwelling Catheter Indwelling Catheter # Bowel Movements 1 - Exam GENERAL EXAM: Revealed 89 year-old female on 2 L nasal cannula HEAD: Normocephalic and atraumatic EYES: Normal reaction of pupils, equal size. NOSE: Clear with pink turbinates. THROAT: No erythema or exudates. NECK: No masses, no JVD. CHEST: No chest wall deformity. LUNGS: Crackles at the bases bilaterally persist. CVS: Irregularly irregular rhythm ABDOMEN: Soft, nontender, no rebound no guarding SKIN: No rashes CENTRAL NERVOUS SYSTEM: Speech slightly slowed to response (reported chronic from previous CVA) - Labs CBC & Chem 7: 11/12/24 05:37 11/12/24 08:55 Labs: Abnormal Lab Results - Last 24 Hours (Table) 11/11/24 11/11/24 11/11/24 Range/Units 11:37 15:18 19:21 RBC (3.80-5.40) m/uL Hgb (11.4-16.0) gm/dL Hct (34.0-46.0) % Sodium 122 L 117 L* 118 L* (137-145) mmol/L Chloride (98-107) mmol/L Creatinine (0.52-1.04) mg/dL Calcium (8.4-10.2) mg/dL 11/11/24 11/11/24 11/12/24 Range/Units 21:12 23:54 01:54 RBC (3.80-5.40) m/uL Hgb (11.4-16.0) gm/dL Hct (34.0-46.0) % Sodium 120 L 120 L 122 L (137-145) mmol/L Chloride (98-107) mmol/L Creatinine (0.52-1.04) mg/dL Calcium (8.4-10.2) mg/dL 11/12/24 11/12/24 11/12/24 Range/Units 03:51 05:37 05:37 RBC 3.53 L (3.80-5.40) m/uL Hgb 10.2 L (11.4-16.0) gm/dL Hct 29.9 L (34.0-46.0) % Sodium 122 L 122 L (137-145) mmol/L Chloride 95 L (98-107) mmol/L Creatinine 0.45 L (0.52-1.04) mg/dL Calcium 7.7 L (8.4-10.2) mg/dL 11/12/24 11/12/24 Range/Units 07:42 08:55 RBC (3.80-5.40) m/uL Hgb (11.4-16.0) gm/dL Hct (34.0-46.0) % Sodium 124 L 122 L (137-145) mmol/L Chloride (98-107) mmol/L Creatinine (0.52-1.04) mg/dL Calcium (8.4-10.2) mg/dL Assessment and Plan Assessment: Symptomatic hyponatremia, secondary to poor solute intake, nephrology is following Normocytic Anemia, post op anemia vs Iron deficiency anemia, S/p 1 unit PRBC on 11/10/24 Displaced Right intertrochanteric femur fracture S/p trochanteric intramedullary nailing on 11/08/24 Atrial fibrillation with RVR, Cardiology is following Hypertension Hyperlipidemia History of CVA Plan: D5W and 3% hypertonic saline discontinued Continue KCL 20 meq x2 Continue DuoNeb Continue apixaban 2.5 mg p.o. twice daily and metoprolol 75 milligram p.o. twice daily Continue amlodipine 2.5 mg p.o. daily and atorvastatin 20 mg p.o. daily Plan is to transfer out of ICU to general medical floor Time with Patient: Greater than 30
--- NOTE | 2024-11-12 09:51 | P.PN ---
Subjective Patient is seen in follow-up for hyponatremia. Patient started on 3% again yesterday and sodium improved to 124. Most recent sodium 122. Oral intake is fair. No vomiting or diarrhea. Vital signs are stable. General: No acute distress. HEENT: Head exam is unremarkable. LUNGS: No audible rhonchi or wheezes. HEART: Rate and Rhythm are regular. ABDOMEN: Nontender. EXTREMITITES: Trace edema. Objective - Vital Signs Vital signs: Vital Signs Temp 97.9 F 11/12/24 08:00 Pulse 106 H 11/12/24 09:00 Resp 24 11/12/24 09:00 BP 127/64 11/12/24 09:00 Pulse Ox 95 11/12/24 09:00 FiO2 Intake & Output 11/11/24 11/12/24 11/12/24 18:59 06:59 18:59 Intake Total 600 230 90 Output Total 1200 1360 305 Balance -600 -1130 -215 Weight 60.6 kg Intake: IV 200 230 90 Dextrose 5% in Water 1, 150 000 ml @ 150 mls/hr IV . Q6H40M ONE Rx#:[id number] Sodium Chloride 3%( 50 50 Hypertonic) 500 ml @ 25 mls/hr IV .Q20H ONE Rx#: [id number] Sodium Chloride 3%( 180 90 Hypertonic) 500 ml @ 30 mls/hr IV .[id number] ONE Rx #:[id number] Oral 400 Output: Urine 1200 1360 305 Other: Voiding Method Indwelling Catheter Indwelling Catheter Indwelling Catheter # Bowel Movements 1 - Labs CBC & Chem 7: 11/12/24 05:37 11/12/24 08:55 Labs: Abnormal Lab Results - Last 24 Hours (Table) 11/11/24 11/11/24 11/11/24 Range/Units 11:37 15:18 19:21 RBC (3.80-5.40) m/uL Hgb (11.4-16.0) gm/dL Hct (34.0-46.0) % Sodium 122 L 117 L* 118 L* (137-145) mmol/L Chloride (98-107) mmol/L Creatinine (0.52-1.04) mg/dL Calcium (8.4-10.2) mg/dL 11/11/24 11/11/24 11/12/24 Range/Units 21:12 23:54 01:54 RBC (3.80-5.40) m/uL Hgb (11.4-16.0) gm/dL Hct (34.0-46.0) % Sodium 120 L 120 L 122 L (137-145) mmol/L Chloride (98-107) mmol/L Creatinine (0.52-1.04) mg/dL Calcium (8.4-10.2) mg/dL 11/12/24 11/12/24 11/12/24 Range/Units 03:51 05:37 05:37 RBC 3.53 L (3.80-5.40) m/uL Hgb 10.2 L (11.4-16.0) gm/dL Hct 29.9 L (34.0-46.0) % Sodium 122 L 122 L (137-145) mmol/L Chloride 95 L (98-107) mmol/L Creatinine 0.45 L (0.52-1.04) mg/dL Calcium 7.7 L (8.4-10.2) mg/dL 11/12/24 11/12/24 Range/Units 07:42 08:55 RBC (3.80-5.40) m/uL Hgb (11.4-16.0) gm/dL Hct (34.0-46.0) % Sodium 124 L 122 L (137-145) mmol/L Chloride (98-107) mmol/L Creatinine (0.52-1.04) mg/dL Calcium (8.4-10.2) mg/dL Assessment and Plan Plan: Assessment: 1. Acute symptomatic hyponatremia secondary to poor solute intake and component of SIADH with sodium level 130 dated November 09, 2024 at 3:25 AM and 126 on November 10, 2024 at 5:40 AM. Sodium level dropped down to 116 on November 10 and now improving status post 3% saline. Urine sodium less than 20 and urine osmolality 258. Cortisol not low. TSH normal. It appears patient does have chronic hyponatremia sodium level noted to be low on October 25, 2021 at 131. 2. Status post fall with right femur fracture status post trochanteric nailing November 08, 2024. 3. Benign hypertension. Controlled. Plan: Lasix 20 mg IV once now. Add 1500 cc fluid restriction. Add urea. Encouraged oral intake. Check sodium level this afternoon. If sodium level not trending up, will resume 3% saline.
[2024-11-12] MEDS: UREA 15 GM POWD.PACK PO SCH (10:07)
[2024-11-12] MEDS: FUROSEMIDE 10 MG/ML 2 ML VIAL IV ONE (10:07)
[2024-11-12 11:59] LABS: Glucose,Whole Blood 137 mg/dL (70-110)
--- NOTE | 2024-11-12 12:45 | P.PN ---
Subjective Progress Note Date: 11/12/24 Hospital Course: Patient is a very pleasant 89-year-old female with a past medical history of c hronic atrial fibrillation on anticoagulation with Eliquis 5 mg twice daily follows with social media coordinator Dr. 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 She presented to the emergency department after a fall. Patient reported that she was walking to her vehicle after chart and when walking down the curb to get into her car she lost her balance secondary to her "chronic drag" of her right leg resulting in her falling onto her right hip. Patient adamantly denies hitting her head or having any loss of consciousness. She denies having any dizziness, lightheadedness, chest pain, palpitations, or shortness of breath occurring before or after fall. She reports only injury is to right hip reporting pain throughout right hip and down entire right leg. She denies having any numbness or tingling and is able to wiggle her toes without difficulties. Upon arrival to our facility, patient underwent evaluation in the emergency department. Vital signs upon arrival show blood pressure 176/90, heart rate 118, respiratory rate 18, temp 97.6 F, and SpO2 of 96% on room air. EKG was completed showing atrial fibrillation with RVR to 111 bpm. Chest x-ray completed revealing cardiomegaly but negative for acute cardiopulmonary process. X-ray right knee negative for acute fracture or dislocation. X-ray right hip showing acute displaced intertrochanteric fracture of the right hip. Labs completed and reviewed. CBC showing mild thrombocytopenia with platelet count of 146 otherwise normal findings. Coagulation profile normal finding. BMP showing hyponatremic hypochloremia with sodium of 129 and chloride of 96 otherwise normal findings. Blood glucose was elevated at 186 patient was admitted under orthopedic surgery team and we were consulted for medical clearance and medical management throughout hospitalization and social media coordinator was consulted for cardiac clearance. Patient underwent surgery on 11/08, course was complicated by the acute postoperative blood loss anemia with hemoglobin of 8.42 days postop, primary orthopedic team ordered 1 unit of PRBC on 11/10. Patient was also noted to have worsening hyponatremia with sodium decreased from 138-126 and then to 116 requiring transfer to ICU for hypertonic saline, nephrology consulted. Urine sodium less than 20 and urine osmolality 258, cortisol not low and TSH came back normal. 11/11 hospitalist service assumed care, patient is less confused, knows that she is in the hospital, has adequate oral intake. Sodium went up from 116-124, per nephrology, patient to be started on D5 water at 150 cc/h with goal to maintain sodium level in the mid 120s today. 11/12, received 1 more dose of hypertonic swollen with sodium improvement up to 124. Per nephrology, patient to be started on 1500 fluid restriction, 1 dose of IV Lasix 20 mg provided today, serial blood work. Patient to be transferred from ICU Subjective: Did not have any particular complaint today, mostly is bothered by having to stay in the hospital and delaying her rehab Pertinent positives and negatives as discussed above, a complete review of systems was performed and all other systems are negative. Vitals Signs Reviewed. Vital signs reviewed and stable with the exception of mild hypertension and tachycardia. General: Nontoxic, no distress and appears stated age. Derm: Skin warm and dry, normal coloration for ethnicity. Head: Atraumatic, normocephalic and symmetric. Eyes: EOM's intact, no lid lag, and anicteric sclera Mouth: no lip lesions, mucus membranes moist Cardiovascular: Irregularly irregular rhythm, systolic murmur, positive posterior tibial pulses bilaterally, and cap refill < 2 seconds. Lungs: Respirations even, regular, and unlabored on room air. Lungs CTA bilaterally, no rhonchi, no rales, no wheezing, and no accessory muscle usage. Abdominal: soft, nontender to palpation, no guarding, no appreciable organomegaly Ext: No gross muscle atrophy, no edema, no contractures. Movement and sensation intact. Neuro: Speech slightly slowed to response (reported chronic from previous CVA), face symmetrical and CN II-XII grossly intact with no noted focal neuro deficits Psych: Alert and oriented to person, place, could not remember the name of the hospital appropriate and pleasant affect. Data Reviewed Today: Pertinent Labs: CBC with stable hemoglobin of 10.2, normal WBC and platelet count, sodium 122 wound on 128, normal potassium, chloride 95, creatinine 0.45, normal bicarb, calcium 7.7, glucose controlled. Assessment and Plan: Acute on chronic symptomatic hypochloremic hyponatremia -Na dropped from 138-126 and then to 116 requiring transfer to ICU for hyp ertonic saline, nephrology consulted. Urine sodium less than 20 and urine osmolality 258, cortisol not low and TSH came back normal. -D5 and water discontinued, patient received 1 more dose of hypertonic saline, repeat sodium -1500 fluid restriction -11/12 status post IV Lasix 20 once Status post trochanteric intramedullary nailing of right three-part intertrochanteric femur fracture Acute displaced intertrochanteric fracture of right hip -Management per orthopedic surgery team including DVT prophylaxis, pain management, wound/dressing management, weightbearing, and PT/OT. -Symptomatic care and pain management with Tylenol 650 mg every 6 hours as needed for mild pain, [place] 5/325 mg tablets every 6 hours as needed for moderate pain, and Dilaudid 0.5 mg every 4 hours as needed for severe pain. -Continue Zofran 4 mg IVP every 8 hours as needed for nausea or vomiting Acute postoperative blood loss anemia -Preoperative hemoglobin 11.3 with current postoperative hemoglobin of 8.4. No active bleeding noted. No large bruising or hematoma noted. Will continue to monitor with repeat morning labs. Patient asymptomatic and denies feeling dizziness/lightheadedness or any shortness of breath. -Posttransfusion hemoglobin 9.9, stabilized Atrial fibrillation with RVR, currently rate controlled Hypertension Hyperlipidemia History of CVA with right lower extremity deficits and mild speech deficit Peripheral vascular disease -Patient with mild RVR currently with ventricular rate in 110s. -Eliquis 2.5 mg twice daily was resumed today and patient to continue cardiac medication regimen with amlodipine 2.5 mg daily, atorvastatin 20 mg daily, and metoprolol 50 mg twice daily. -Patient will require continuous telemetry monitoring during preoperative, intraoperative, and postoperative period. -Cardiology following increasing metoprolol to 50 mg twice daily on 11/08/2024. DVT ppx: Eliquis Anticipated discharge place: TBD Anticipated discharge time: TBD Objective Objective - Vital Signs Vital signs: Vital Signs Temp 98.1 F 11/12/24 12:00 Pulse 75 11/12/24 12:00 Resp 14 11/12/24 12:00 BP 106/60 11/12/24 12:00 Pulse Ox 98 11/12/24 12:00 FiO2 Intake & Output 11/11/24 11/12/24 11/12/24 18:59 06:59 18:59 Intake Total 600 230 390 Output Total 1200 1360 1070 Balance -600 -1130 -680 Weight 60.6 kg Intake: IV 200 230 30 Dextrose 5% in Water 1, 150 000 ml @ 150 mls/hr IV . [id number] ONE Rx#:[id number] Sodium Chloride 3%( 50 50 Hypertonic) 500 ml @ 25 mls/hr IV .Q20H ONE Rx#: [id number] Sodium Chloride 3%( 180 30 Hypertonic) 500 ml @ 30 mls/hr IV .[id number] ONE Rx #:[id number] Oral 400 360 Output: Urine 1200 1360 1070 Other: Voiding Method Indwelling Catheter Indwelling Catheter Indwelling Catheter # Bowel Movements 1 - Labs CBC & Chem 7: 11/12/24 05:37 11/12/24 08:55 Labs: Abnormal Lab Results - Last 24 Hours (Table) 11/11/24 11/11/24 11/11/24 Range/Units 15:18 19:21 21:12 RBC (3.80-5.40) m/uL Hgb (11.4-16.0) gm/dL Hct (34.0-46.0) % Sodium 117 L* 118 L* 120 L (137-145) mmol/L Chloride (98-107) mmol/L Creatinine (0.52-1.04) mg/dL POC Glucose (mg/dL) (70-110) mg/dL Calcium (8.4-10.2) mg/dL 11/11/24 11/12/24 11/12/24 Range/Units 23:54 01:54 03:51 RBC (3.80-5.40) m/uL Hgb (11.4-16.0) gm/dL Hct (34.0-46.0) % Sodium 120 L 122 L 122 L (137-145) mmol/L Chloride (98-107) mmol/L Creatinine (0.52-1.04) mg/dL POC Glucose (mg/dL) (70-110) mg/dL Calcium (8.4-10.2) mg/dL 11/12/24 11/12/24 11/12/24 Range/Units 05:37 05:37 07:42 RBC 3.53 L (3.80-5.40) m/uL Hgb 10.2 L (11.4-16.0) gm/dL Hct 29.9 L (34.0-46.0) % Sodium 122 L 124 L (137-145) mmol/L Chloride 95 L (98-107) mmol/L Creatinine 0.45 L (0.52-1.04) mg/dL POC Glucose (mg/dL) (70-110) mg/dL Calcium 7.7 L (8.4-10.2) mg/dL 11/12/24 11/12/24 Range/Units 08:55 11:58 RBC (3.80-5.40) m/uL Hgb (11.4-16.0) gm/dL Hct (34.0-46.0) % Sodium 122 L (137-145) mmol/L Chloride (98-107) mmol/L Creatinine (0.52-1.04) mg/dL POC Glucose (mg/dL) 137 H (70-110) mg/dL Calcium (8.4-10.2) mg/dL
[2024-11-12 13:12] VITALS: BMI 22.9
[2024-11-12 18:17] LABS: Glucose,Whole Blood 165 mg/dL (70-110)
[2024-11-13 00:08] LABS: Glucose,Whole Blood 119 mg/dL (70-110)
[2024-11-13] MEDS: SODIUM CHLORIDE 3%(HYPERTONIC) 500 ML IV ONE (02:36)
[2024-11-13 03:09] LABS: African American GFR (CKD) >90 (>60 ml/min/1.73 sqM); Anion Gap 2 mmol/L; Blood Urea Nitrogen 29 mg/dL (7-17); Calcium 7.8 mg/dL (8.4-10.2); Carbon Dioxide 25 mmol/L (22-30); Chloride 97 mmol/L (98-107); Glucose 94 mg/dL (74-99); Non-African American GFR(CKD) >90 (>60 ml/min/1.73 sqM); Potassium 3.9 mmol/L (3.5-5.1); Sodium 124 mmol/L (137-145)
[2024-11-13 05:21] LABS: Basophils % (A) 0 %; Eosinophils # (A) 0.1 k/uL (0-0.7); Eosinophils % (A) 1 %; HCT 31.9 % (34.0-46.0); HGB 10.3 gm/dL (11.4-16.0); Lymphocytes # (A) 4.1 k/uL (1.0-4.8); Lymphocytes % (A) 42 %; MCH 27.8 pg (25.0-35.0); MCHC 32.3 g/dL (31.0-37.0); Mean Platelet Volume 8.4; Monocytes # (A) 0.2 k/uL (0-1.0); Monocytes % (A) 2 %; Neutrophils # (A) 5.2 k/uL (1.3-7.7); Neutrophils % (A) 54 %; Platelet Count 260 k/uL (150-450); RDW 14.6 % (11.5-15.5); WBC 9.8 k/uL (3.8-10.6)
[2024-11-13] MEDS: POTASSIUM CHLORIDE ER 20 MEQ TAB.ER PO SCH (05:25)
[2024-11-13 06:11] LABS: Glucose,Whole Blood 107 mg/dL (70-110)
--- NOTE | 2024-11-13 09:29 | P.PN ---
Subjective Progress Note Date: 11/13/24 Principal diagnosis: Hospital course: Symptomatic hyponatremia, Post op anemia Patient is an 89 year old female with past medical history of atrial fibri llation, CVA/TIA, presented to the ED on 11/07/24 after a fall while trying to get in her car to go home from [place]. She was diagnosed with a displaced right intertrochanteric femur fracture and underwent Trochanteric intramedullary nailing on 11/08/24. After the surgery her blood pressure was reported to be on the lower side. A day after her surgery her Hb 9.7 and Na was dropping. Initially the sodium improved with IV fluids. She denied any symptoms of dizziness or lightheadedness. Last night her Na dropped to 117 and her Hb 8.4. She received 1 unit of PRBC. She was put on seizure precautions and moved to the ICU. She was started on 3% Normal saline drip overnight. In the morning her Na improved to 124 and 3% NS was discontinued. Today she is resting comfortably on 2L of oxygen. Vital signs are stable with blood pressure at 129/62. Denies any acute complains. Labs today show WBC 8.3, hemoglobin 9.9, sodium 124, creatinine 0.47, calcium 7.7, total bilirubin 1.5, AST 55, total protein 4.7. Cortisol 20.9, urine osmolality 258, urine random sodium less than 20, TSH 2.62. Chest x-ray done today shows COPD changes with similar scattered reticular opacities which may represent pulmonary fibrotic changes versus atypical pneumonia. Cepheid 4 Plex is negative. 11/12/24: Patient seen and examined at bedside today. She remains in the ICU. She is on 3.5L of oxygen and is saturating at 95%. She denies any acute complains. Last night her Na dropped down to 118 and she was started on 3% hypertonic saline which was discontinued 2:40am this morning. Yesterday she was started on D5W which is also discontinued. Labs today show WBC 8.1, hemoglobin 10.2, sodium 122, potassium 3.9, creatinine 0.45, calcium 7.7. 11/13/24: Patient evaluated at bedside. She continues to be in the ICU as she was downgraded to 3S and then re-upgraded to ICU yesterday. She is currently on 3L of oxygen via nasal cannula. Denies any acute complains. She received Furosemide 20 mg yesterday. She was also placed on 3% hypertonic saline drip last night for 4 hours. She is currently on 1500cc fluid restriction and started on Urea tablets. Currently not on any drips. Labs today show WBC 9.8, hemoglobin 10.3, sodium 125, chloride 97, BUN 29, creatinine 0.44, calcium 7.8. Objective - Vital Signs Vital signs: Vital Signs Temp 97.7 F 11/13/24 08:00 Pulse 90 11/13/24 09:00 Resp 18 11/13/24 09:00 BP 114/69 11/13/24 09:00 Pulse Ox 98 11/13/24 09:00 FiO2 Intake & Output 11/12/24 11/13/24 11/13/24 18:59 06:59 18:59 Intake Total 770 1100 Output Total 1780 1475 225 Balance -1010 -375 -225 Weight 60.6 kg 59 kg Intake: IV 30 250 Sodium Chloride 3%( 30 250 Hypertonic) 500 ml @ 30 mls/hr IV .[id number] ONE Rx #:[id number] Oral 740 850 Output: Urine 1780 1475 225 Other: Voiding Method Indwelling Catheter Indwelling Catheter Indwelling Catheter - Exam GENERAL EXAM: Revealed 89 year-old female on 3 L nasal cannula HEAD: Normocephalic and atraumatic EYES: Normal reaction of pupils, equal size. NOSE: Clear with pink turbinates. THROAT: No erythema or exudates. NECK: No masses, no JVD. CHEST: No chest wall deformity. LUNGS: Crackles at the bases bilaterally persist. CVS: Irregularly irregular rhythm ABDOMEN: Soft, nontender, no rebound no guarding SKIN: No rashes CENTRAL NERVOUS SYSTEM: Speech slightly slowed to response (reported chronic from previous CVA) - Labs CBC & Chem 7: 11/13/24 05:10 11/13/24 05:10 Labs: Abnormal Lab Results - Last 24 Hours (Table) 11/12/24 11/12/24 11/12/24 Range/Units 11:58 14:18 18:16 RBC (3.80-5.40) m/uL Hgb (11.4-16.0) gm/dL Hct (34.0-46.0) % Sodium 123 L (137-145) mmol/L Chloride (98-107) mmol/L BUN (7-17) mg/dL Creatinine (0.52-1.04) mg/dL POC Glucose (mg/dL) 137 H 165 H (70-110) mg/dL Calcium (8.4-10.2) mg/dL 11/12/24 11/12/24 11/13/24 Range/Units 19:50 23:13 00:07 RBC (3.80-5.40) m/uL Hgb (11.4-16.0) gm/dL Hct (34.0-46.0) % Sodium 121 L 123 L (137-145) mmol/L Chloride (98-107) mmol/L BUN (7-17) mg/dL Creatinine (0.52-1.04) mg/dL POC Glucose (mg/dL) 119 H (70-110) mg/dL Calcium (8.4-10.2) mg/dL 11/13/24 11/13/24 11/13/24 Range/Units 01:51 03:29 05:10 RBC (3.80-5.40) m/uL Hgb (11.4-16.0) gm/dL Hct (34.0-46.0) % Sodium 124 L 124 L 125 L (137-145) mmol/L Chloride 97 L (98-107) mmol/L BUN 29 H (7-17) mg/dL Creatinine 0.44 L (0.52-1.04) mg/dL POC Glucose (mg/dL) (70-110) mg/dL Calcium 7.8 L (8.4-10.2) mg/dL 11/13/24 Range/Units 05:10 RBC 3.70 L (3.80-5.40) m/uL Hgb 10.3 L (11.4-16.0) gm/dL Hct 31.9 L (34.0-46.0) % Sodium (137-145) mmol/L Chloride (98-107) mmol/L BUN (7-17) mg/dL Creatinine (0.52-1.04) mg/dL POC Glucose (mg/dL) (70-110) mg/dL Calcium (8.4-10.2) mg/dL Assessment and Plan Assessment: Symptomatic hyponatremia, secondary to poor solute intake, nephrology is following Normocytic Anemia, post op anemia vs Iron deficiency anemia, S/p 1 unit PRBC on 11/10/24 Displaced Right intertrochanteric femur fracture S/p trochanteric intramedullary nailing on 11/08/24 Atrial fibrillation with RVR, Cardiology is following Hypertension Hyperlipidemia History of CVA Plan: Patient received 3% hypertonic saline for 4 hours overnight Started on Urea tablets 15 gm PO BID Placed on 1500 cc fluid restriciton Continue DuoNeb Continue apixaban 2.5 mg p.o. twice daily and metoprolol 75 milligram p.o. twice daily Continue amlodipine 2.5 mg p.o. daily and atorvastatin 20 mg p.o. daily Time with Patient: Less than 30
--- NOTE | 2024-11-13 10:56 | P.PN ---
Subjective Progress Note Date: 11/13/24 Patient is seen in follow-up for hyponatremia. s/p 3% and IV Lasix 20 mg once, sodium improved to 125. Oral intake is fair. No vomiting or diarrhea. Vital signs are stable. General: No acute distress. HEENT: Head exam is unremarkable. LUNGS: No audible rhonchi or wheezes. HEART: Rate and Rhythm are regular. ABDOMEN: Nontender. EXTREMITITES: Trace edema. Objective - Vital Signs Vital signs: Vital Signs Temp 97.7 F 11/13/24 08:00 Pulse 72 11/13/24 10:00 Resp 20 11/13/24 10:00 BP 116/66 11/13/24 10:00 Pulse Ox 97 11/13/24 10:00 FiO2 Intake & Output 11/12/24 11/13/24 11/13/24 18:59 06:59 18:59 Intake Total 770 1100 Output Total 1780 1475 300 Balance -1010 -375 -300 Weight 60.6 kg 59 kg Intake: IV 30 250 Sodium Chloride 3%( 30 250 Hypertonic) 500 ml @ 30 mls/hr IV .[id number] ONE Rx #:[id number] Oral 740 850 Output: Urine 1780 1475 300 Other: Voiding Method Indwelling Catheter Indwelling Catheter Indwelling Catheter - Labs CBC & Chem 7: 11/13/24 05:10 11/13/24 05:10 Labs: Abnormal Lab Results - Last 24 Hours (Table) 11/12/24 11/12/24 11/12/24 Range/Units 11:58 14:18 18:16 RBC (3.80-5.40) m/uL Hgb (11.4-16.0) gm/dL Hct (34.0-46.0) % Sodium 123 L (137-145) mmol/L Chloride (98-107) mmol/L BUN (7-17) mg/dL Creatinine (0.52-1.04) mg/dL POC Glucose (mg/dL) 137 H 165 H (70-110) mg/dL Calcium (8.4-10.2) mg/dL 11/12/24 11/12/24 11/13/24 Range/Units 19:50 23:13 00:07 RBC (3.80-5.40) m/uL Hgb (11.4-16.0) gm/dL Hct (34.0-46.0) % Sodium 121 L 123 L (137-145) mmol/L Chloride (98-107) mmol/L BUN (7-17) mg/dL Creatinine (0.52-1.04) mg/dL POC Glucose (mg/dL) 119 H (70-110) mg/dL Calcium (8.4-10.2) mg/dL 11/13/24 11/13/24 11/13/24 Range/Units 01:51 03: 05:10 RBC (3.80-5.40) m/uL Hgb (11.4-16.0) gm/dL Hct (34.0-46.0) % Sodium 124 L 124 L 125 L (137-145) mmol/L Chloride 97 L (98-107) mmol/L BUN 29 H (7-17) mg/dL Creatinine 0.44 L (0.52-1.04) mg/dL POC Glucose (mg/dL) (70-110) mg/dL Calcium 7.8 L (8.4-10.2) mg/dL 11/13/24 Range/Units 05:10 RBC 3.70 L (3.80-5.40) m/uL Hgb 10.3 L (11.4-16.0) gm/dL Hct 31.9 L (34.0-46.0) % Sodium (137-145) mmol/L Chloride (98-107) mmol/L BUN (7-17) mg/dL Creatinine (0.52-1.04) mg/dL POC Glucose (mg/dL) (70-110) mg/dL Calcium (8.4-10.2) mg/dL Assessment and Plan Plan: Assessment: 1. Acute symptomatic hyponatremia secondary to poor solute intake and component of SIADH with sodium level 130 dated November 09, 2024 at 3:25 AM and 126 on November 10, 2024 at 5:40 AM. Sodium level dropped down to 116 on November 10 and now improving status post 3% saline. Urine sodium less than 20 and urine osmolality 258. Cortisol not low. TSH normal. It appears patient does have chronic hyponatremia sodium level noted to be low on October 25, 2021 at 131. 2. Status post fall with right femur fracture status post trochanteric nailing November 08, 2024. 3. Benign hypertension. Controlled. Plan: stable sodium level, monitor sodium level q 6 hours continue 1500 cc fluid restriction. continue urea. Encouraged oral intake. If sodium level not trending up, will resume 3% saline.
--- NOTE | 2024-11-13 11:27 | P.PN ---
Subjective Progress Note Date: 11/13/24 Hospital Course: Patient is a very pleasant 89-year-old female with a past medical history of c hronic atrial fibrillation on anticoagulation with Eliquis 5 mg twice daily follows with label stamper Dr. 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 She presented to the emergency department after a fall. Patient reported that she was walking to her vehicle after chart and when walking down the curb to get into her car she lost her balance secondary to her "chronic drag" of her right leg resulting in her falling onto her right hip. Patient adamantly denies hitting her head or having any loss of consciousness. She denies having any dizziness, lightheadedness, chest pain, palpitations, or shortness of breath occurring before or after fall. She reports only injury is to right hip reporting pain throughout right hip and down entire right leg. She denies having any numbness or tingling and is able to wiggle her toes without difficulties. Upon arrival to our facility, patient underwent evaluation in the emergency department. Vital signs upon arrival show blood pressure 176/90, heart rate 118, respiratory rate 18, temp 97.6 F, and SpO2 of 96% on room air. EKG was completed showing atrial fibrillation with RVR to 111 bpm. Chest x-ray completed revealing cardiomegaly but negative for acute cardiopulmonary process. X-ray right knee negative for acute fracture or dislocation. X-ray right hip showing acute displaced intertrochanteric fracture of the right hip. Labs completed and reviewed. CBC showing mild thrombocytopenia with platelet count of 146 otherwise normal findings. Coagulation profile normal finding. BMP showing hyponatremic hypochloremia with sodium of 129 and chloride of 96 otherwise normal findings. Blood glucose was elevated at 186 patient was admitted under orthopedic surgery team and we were consulted for medical clearance and medical management throughout hospitalization and label stamper was consulted for cardiac clearance. Patient underwent surgery on 11/08, course was complicated by the acute postoperative blood loss anemia with hemoglobin of 8.42 days postop, primary orthopedic team ordered 1 unit of PRBC on 11/10. Patient was also noted to have worsening hyponatremia with sodium decreased from 138-126 and then to 116 requiring transfer to ICU for hypertonic saline, nephrology consulted. Urine sodium less than 20 and urine osmolality 258, cortisol not low and TSH came back normal. 11/11 hospitalist service assumed care, patient is less confused, knows that she is in the hospital, has adequate oral intake. Sodium went up from 116-124, per nephrology, patient to be started on D5 water at 150 cc/h with goal to maintain sodium level in the mid 120s today. 11/12, received 1 more dose of hypertonic swollen with sodium improvement up to 124. Per nephrology, patient to be started on 1500 fluid restriction, 1 dose of IV Lasix 20 mg provided today, serial blood work. 11/13: Received hypertonic saline overnight again, started on urea 15 mg p.o. twice daily. Subjective: Did not have any particular complaint today, trying to do some exercises in bed, denied any shortness of breath, chest pain, dizziness, lightheadedness Pertinent positives and negatives as discussed above, a complete review of systems was performed and all other systems are negative. Vitals Signs Reviewed. Vital signs reviewed and stable with the exception of mild hypertension and tachycardia. General: Nontoxic, no distress and appears stated age. Derm: Skin warm and dry, normal coloration for ethnicity. Head: Atraumatic, normocephalic and symmetric. Eyes: EOM's intact, no lid lag, and anicteric sclera Mouth: no lip lesions, mucus membranes moist Cardiovascular: Irregularly irregular rhythm, systolic murmur, positive posterior tibial pulses bilaterally, and cap refill < 2 seconds. Lungs: Respirations even, regular, and unlabored on room air. Lungs CTA bilaterally, no rhonchi, no rales, no wheezing, and no accessory muscle usage. Abdominal: soft, nontender to palpation, no guarding, no appreciable organomegaly Ext: No gross muscle atrophy, no edema, no contractures. Movement and sensation intact. Neuro: Speech slightly slowed to response (reported chronic from previous CVA), face symmetrical and CN II-XII grossly intact with no noted focal neuro deficits Psych: Alert and oriented Data Reviewed Today: Pertinent Labs: CBC with stable hemoglobin of 10.3, normal WBC and platelet count, sodium 125, potassium 3.9, chloride 97, bicarb 25, creatinine 0.4, glucose 94 Assessment and Plan: Acute on chronic symptomatic hypochloremic hyponatremia -Na dropped from 138-126 and then to 116 requiring transfer to ICU for hypertonic saline, nephrology consulted. Urine sodium less than 20 and urine osmolality 258, cortisol not low and TSH came back normal. -D5 and water discontinued, patient received 1 more dose of hypertonic saline 11/12 overnight, sodium every 6 hours -1500 fluid restriction -11/12 status post IV Lasix 20 once -Started on urea 15 mg p.o. twice daily Status post trochanteric intramedullary nailing of right three-part intertrochanteric femur fracture Acute displaced intertrochanteric fracture of right hip -Management per orthopedic surgery team including DVT prophylaxis, pain management, wound/dressing management, weightbearing, and PT/OT. -Symptomatic care and pain management with Tylenol 650 mg every 6 hours as needed for mild pain, [place] 5/325 mg tablets every 6 hours as needed for moderate pain, and Dilaudid 0.5 mg every 4 hours as needed for severe pain. -Continue Zofran 4 mg IVP every 8 hours as needed for nausea or vomiting Acute postoperative blood loss anemia -Preoperative hemoglobin 11.3 with current postoperative hemoglobin of 8.4. No active bleeding noted. No large bruising or hematoma noted. Will continue to monitor with repeat morning labs. Patient asymptomatic and denies feeling dizziness/lightheadedness or any shortness of breath. -Posttransfusion hemoglobin 9.9, stable since Atrial fibrillation with RVR, currently rate controlled Hypertension Hyperlipidemia History of CVA with right lower extremity deficits and mild speech deficit Peripheral vascular disease -Patient with mild RVR currently with ventricular rate in 110s. -Eliquis 2.5 mg twice daily was resumed and patient to continue cardiac medication regimen with amlodipine 2.5 mg daily, atorvastatin 20 mg daily, and metoprolol 50 mg twice daily. -Patient will require continuous telemetry monitoring during preoperative, intraoperative, and postoperative period. -Cardiology following increasing metoprolol to 50 mg twice daily on 11/08/2024. DVT ppx: Eliquis Anticipated discharge place: TBD Anticipated discharge time: TBD Objective - Vital Signs Vital signs: Vital Signs Temp 97.7 F 11/13/24 08:00 Pulse 72 11/13/24 11:00 Resp 16 11/13/24 11:00 BP 114/63 11/13/24 11:00 Pulse Ox 96 11/13/24 11:00 FiO2 Intake & Output 11/12/24 11/13/24 11/13/24 18:59 06:59 18:59 Intake Total 770 1100 Output Total 1780 1475 360 Balance -1010 -375 -360 Weight 60.6 kg 59 kg Intake: IV 30 250 Sodium Chloride 3%( 30 250 Hypertonic) 500 ml @ 30 mls/hr IV .[id number] ONE Rx #:[id number] Oral 740 850 Output: Urine 1780 1475 360 Other: Voiding Method Indwelling Catheter Indwelling Catheter Indwelling Catheter - Labs CBC & Chem 7: 11/13/24 05:10 11/13/24 05:10 Labs: Abnormal Lab Results - Last 24 Hours (Table) 11/12/24 11/12/24 11/12/24 Range/Units 11:58 14:18 18:16 RBC (3.80-5.40) m/uL Hgb (11.4-16.0) gm/dL Hct (34.0-46.0) % Sodium 123 L (137-145) mmol/L Chloride (98-107) mmol/L BUN (7-17) mg/dL Creatinine (0.52-1.04) mg/dL POC Glucose (mg/dL) 137 H 165 H (70-110) mg/dL Calcium (8.4-10.2) mg/dL 11/12/24 11/12/24 11/13/24 Range/Units 19:50 23:13 00:07 RBC (3.80-5.40) m/uL Hgb (11.4-16.0) gm/dL Hct (34.0-46.0) % Sodium 121 L 123 L (137-145) mmol/L Chloride (98-107) mmol/L BUN (7-17) mg/dL Creatinine (0.52-1.04) mg/dL POC Glucose (mg/dL) 119 H (70-110) mg/dL Calcium (8.4-10.2) mg/dL 11/13/24 11/13/24 11/13/24 Range/Units 01:51 03: 05:10 RBC (3.80-5.40) m/uL Hgb (11.4-16.0) gm/dL Hct (34.0-46.0) % Sodium 124 L 124 L 125 L (137-145) mmol/L Chloride 97 L (98-107) mmol/L BUN 29 H (7-17) mg/dL Creatinine 0.44 L (0.52-1.04) mg/dL POC Glucose (mg/dL) (70-110) mg/dL Calcium 7.8 L (8.4-10.2) mg/dL 11/13/24 Range/Units 05:10 RBC 3.70 L (3.80-5.40) m/uL Hgb 10.3 L (11.4-16.0) gm/dL Hct 31.9 L (34.0-46.0) % Sodium (137-145) mmol/L Chloride (98-107) mmol/L BUN (7-17) mg/dL Creatinine (0.52-1.04) mg/dL POC Glucose (mg/dL) (70-110) mg/dL Calcium (8.4-10.2) mg/dL
[2024-11-13 11:50] LABS: Glucose,Whole Blood 109 mg/dL (70-110)
[2024-11-13] MEDS: HYDROmorphone 0.5 MG/0.5 ML SYRINGE IVP PRN (12:40)
[2024-11-13 18:01] LABS: Glucose,Whole Blood 109 mg/dL (70-110)
[2024-11-14 00:16] LABS: Glucose,Whole Blood 97 mg/dL (70-110)
[2024-11-14 06:23] LABS: African American GFR (CKD) >90 (>60 ml/min/1.73 sqM); Anion Gap 5 mmol/L; Blood Urea Nitrogen 19 mg/dL (7-17); Calcium 8.1 mg/dL (8.4-10.2); Carbon Dioxide 25 mmol/L (22-30); Chloride 96 mmol/L (98-107); Glucose 96 mg/dL (74-99); Non-African American GFR(CKD) >90 (>60 ml/min/1.73 sqM); Potassium 3.9 mmol/L (3.5-5.1); Sodium 126 mmol/L (137-145)
[2024-11-14 06:30] LABS: Glucose,Whole Blood 114 mg/dL (70-110)
[2024-11-14] MEDS: CYCLOBENZAPRINE 5 MG TAB PO PRN (06:46)
[2024-11-14] MEDS: POTASSIUM CHLORIDE ER 20 MEQ TAB.ER PO SCH (06:49)
--- NOTE | 2024-11-14 10:17 | P.PN ---
Subjective Progress Note Date: 11/14/24 Patient is seen in follow-up for hyponatremia. s/p 3% and IV Lasix 20 mg once, sodium stable 126 . Oral intake is fair. No vomiting or diarrhea. Vital signs are stable. General: No acute distress. HEENT: Head exam is unremarkable. LUNGS: No audible rhonchi or wheezes. HEART: Rate and Rhythm are regular. ABDOMEN: Nontender. EXTREMITITES: Trace edema. Objective - Vital Signs Vital signs: Vital Signs Temp 97.7 F 11/14/24 08:00 Pulse 74 11/14/24 09:00 Resp 17 11/14/24 09:00 BP 130/67 11/14/24 09:00 Pulse Ox 99 11/14/24 09:00 FiO2 Intake & Output 11/13/24 11/14/24 11/14/24 18:59 06:59 18:59 Intake Total 900 250 Output Total 695 2050 600 Balance -753 -8215 -350 Intake: Oral 900 250 Output: Urine 695 2050 600 Other: Voiding Method Indwelling Catheter Indwelling Catheter Indwelling Catheter # Bowel Movements 1 - Labs CBC & Chem 7: 11/13/24 05:10 11/14/24 05:43 Labs: Abnormal Lab Results - Last 24 Hours (Table) 11/13/24 11/13/24 11/14/24 Range/Units 11:42 18:19 00:11 Sodium 126 L 127 L 125 L (137-145) mmol/L Chloride (98-107) mmol/L BUN (7-17) mg/dL Creatinine (0.52-1.04) mg/dL POC Glucose (mg/dL) (70-110) mg/dL Calcium (8.4-10.2) mg/dL 11/14/24 11/14/24 11/14/24 Range/Units 03:07 05:43 06:29 Sodium 125 L 126 L (137-145) mmol/L Chloride 96 L (98-107) mmol/L BUN 19 H (7-17) mg/dL Creatinine 0.39 L (0.52-1.04) mg/dL POC Glucose (mg/dL) 114 H (70-110) mg/dL Calcium 8.1 L (8.4-10.2) mg/dL Assessment and Plan Assessment: Assessment: 1. Acute symptomatic hyponatremia secondary to poor solute intake and component of SIADH with sodium level 130 dated November 09, 2024 at 3:25 AM and 126 on November 10, 2024 at 5:40 AM. Sodium level dropped down to 116 on November 10 and now improving status post 3% saline. Urine sodium less than 20 and urine osmolality 258. Cortisol not low. TSH normal. It appears patient does have chronic hyponatremia sodium level noted to be low on October 25, 2021 at 131. 2. Status post fall with right femur fracture status post trochanteric nailing November 08, 2024. 3. Benign hypertension. Controlled. Plan: stable sodium level, monitor sodium level q 12 hours continue 1500 cc fluid restriction. continue urea. Encouraged oral intake. If sodium level not trending up, will resume 3% saline.
[2024-11-14 11:15] LABS: Glucose,Whole Blood 90 mg/dL (70-110)
--- NOTE | 2024-11-14 11:44 | P.PN ---
Subjective Progress Note Date: 11/14/24 Patient is an 89 year old female with past medical history of atrial fibrillation, CVA/TIA, presented to the ED on 11/07/24 after a fall while trying to get in her car to go home from [facility]. She was diagnosed with a displaced right intertrochanteric femur fracture and underwent Trochanteric intramedullary nailing on 11/08/24. After the surgery her blood pressure was reported to be on the lower side. A day after her surgery her Hb 9.7 and Na was dropping. Initially the sodium improved with IV fluids. She denied any symptoms of dizziness or lightheadedness. Last night her Na dropped to 117 and her Hb 8.4. She received 1 unit of PRBC. She was put on seizure precautions and moved to the ICU. She was started on 3% Normal saline drip overnight. In the morning her Na improved to 124 and 3% NS was discontinued. Today she is resting comfortably on 2L of oxygen. Vital signs are stable with blood pressure at 129/62. Denies any acute complains. Labs today show WBC 8.3, hemoglobin 9.9, sodium 124, creat inine 0.47, calcium 7.7, total bilirubin 1.5, AST 55, total protein 4.7. Cortisol 20.9, urine osmolality 258, urine random sodium less than 20, TSH 2.62. Chest x-ray done today shows COPD changes with similar scattered reticular opacities which may represent pulmonary fibrotic changes versus atypical pneumonia. Cepheid 4 Plex is negative. 11/12/24: Patient seen and examined at bedside today. She remains in the ICU. She is on 3.5L of oxygen and is saturating at 95%. She denies any acute complains. Last night her Na dropped down to 118 and she was started on 3% hypertonic saline which was discontinued 2:40am this morning. Yesterday she was started on D5W which is also discontinued. Labs today show WBC 8.1, hemoglobin 10.2, sodium 122, potassium 3.9, creatinine 0.45, calcium 7.7. 11/13/24: Patient evaluated at bedside. She continues to be in the ICU as she was downgraded to 3S and then re-upgraded to ICU yesterday. She is currently on 3L of oxygen via nasal cannula. Denies any acute complains. She received Furosemide 20 mg yesterday. She was also placed on 3% hypertonic saline drip last night for 4 hours. She is currently on 1500cc fluid restriction and started on Urea tablets. Currently not on any drips. Labs today show WBC 9.8, hemoglobin 10.3, sodium 125, chloride 97, BUN 29, creatinine 0.44, calcium 7.8. The patient is seen today November 14, 2024 in follow-up in the intensive care unit. She is currently sitting up in bed. Awake and alert in no acute distress. Maintaining good O2 saturations in the 90s on 2 L/min per nasal cannula. She has been off the 3% normal saline. Current sodium 126. No IV fluids. Remains on a 1500 mL fluid restriction. Potassium 3.9. Bicarb 25. BUN 19. Creatinine 0.39. Glucose 96. She remains afebrile. Hemodynamically stable. Continued on DuoNeb inhalations as needed. Anticoagulated with Eliquis. Objective - Vital Signs Vital signs: Vital Signs Temp 97.7 F 11/14/24 08:00 Pulse 74 11/14/24 09:00 Resp 17 11/14/24 09:00 BP 130/67 11/14/24 09:00 Pulse Ox 99 11/14/24 09:00 FiO2 Intake & Output 11/13/24 11/14/24 11/14/24 18:59 06:59 18:59 Intake Total 900 250 Output Total 695 2050 600 Balance -695 -1150 -350 Intake: Oral 900 250 Output: Urine 695 2050 600 Other: Voiding Method Indwelling Catheter Indwelling Catheter Indwelling Catheter # Bowel Movements 1 - Exam GENERAL EXAM: Revealed an 89 year-old female sitting up in bed, comfortable, on 3 L nasal cannula HEAD: Normocephalic and atraumatic EYES: Normal reaction of pupils, equal size. NOSE: Clear with pink turbinates. THROAT: No erythema or exudates. NECK: No masses, no JVD. CHEST: No chest wall deformity. LUNGS: Crackles at the bases bilaterally persist. CVS: Irregularly irregular rhythm ABDOMEN: Soft, nontender, no rebound no guarding SKIN: No rashes CENTRAL NERVOUS SYSTEM: Speech slightly slowed to response (reported chronic from previous CVA) Extremities: Dressing to the right hip may remains clean and dry. Pulses palpable. - Labs CBC & Chem 7: 11/13/24 05:10 03/30/25 05:43 Labs: Abnormal Lab Results - Last 24 Hours (Table) 11/13/24 11/13/24 11/14/24 Range/Units 11:42 18:19 00:11 Sodium 126 L 127 L 125 L (137-145) mmol/L Chloride (98-107) mmol/L BUN (7-17) mg/dL Creatinine (0.52-1.04) mg/dL POC Glucose (mg/dL) (70-110) mg/dL Calcium (8.4-10.2) mg/dL 11/14/24 11/14/24 11/14/24 Range/Units 03:07 05:43 06:29 Sodium 125 L 126 L (137-145) mmol/L Chloride 96 L (98-107) mmol/L BUN 19 H (7-17) mg/dL Creatinine 0.39 L (0.52-1.04) mg/dL POC Glucose (mg/dL) 114 H (70-110) mg/dL Calcium 8.1 L (8.4-10.2) mg/dL Assessment and Plan Assessment: Symptomatic hyponatremia, secondary to poor solute intake, nephrology is following Normocytic Anemia, post op anemia vs Iron deficiency anemia, S/p 1 unit PRBC on 11/10/24 Displaced Right intertrochanteric femur fracture S/p trochanteric intramedullary nailing on 11/08/24 Atrial fibrillation with RVR, Cardiology is following Hypertension Hyperlipidemia History of CVA Plan: The patient was seen and evaluated Currently stable on 3 L nasal cannula Current sodium 126 Discontinued 3% normal saline Transfer to the regular medical floor Increase her activity as tolerated Titrate down the FiO2 as tolerated We will continue to follow I have personally seen and examined the patient, performed the documentation and the assessment and plan as written. Number of minutes spent on the visit: 10 Dictation was produced using [employer] dictation software. Please excuse any grammatical, word or spelling errors.
--- NOTE | 2024-11-14 12:09 | P.PN ---
Subjective Progress Note Date: 11/14/24 Hospital Course: Patient is a very pleasant 89-year-old female with a past medical history of c hronic atrial fibrillation on anticoagulation with Eliquis 5 mg twice daily follows with metal sprayer Dr. 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 She presented to the emergency department after a fall. Patient reported that she was walking to her vehicle after chart and when walking down the curb to get into her car she lost her balance secondary to her "chronic drag" of her right leg resulting in her falling onto her right hip. Patient adamantly denies hitting her head or having any loss of consciousness. She denies having any dizziness, lightheadedness, chest pain, palpitations, or shortness of breath occurring before or after fall. She reports only injury is to right hip reporting pain throughout right hip and down entire right leg. She denies having any numbness or tingling and is able to wiggle her toes without difficulties. Upon arrival to our facility, patient underwent evaluation in the emergency department. Vital signs upon arrival show blood pressure 176/90, heart rate 118, respiratory rate 18, temp 97.6 F, and SpO2 of 96% on room air. EKG was completed showing atrial fibrillation with RVR to 111 bpm. Chest x-ray completed revealing cardiomegaly but negative for acute cardiopulmonary process. X-ray right knee negative for acute fracture or dislocation. X-ray right hip showing acute displaced intertrochanteric fracture of the right hip. Labs completed and reviewed. CBC showing mild thrombocytopenia with platelet count of 146 otherwise normal findings. Coagulation profile normal finding. BMP showing hyponatremic hypochloremia with sodium of 129 and chloride of 96 otherwise normal findings. Blood glucose was elevated at 186 patient was admitted under orthopedic surgery team and we were consulted for medical clearance and medical management throughout hospitalization and metal sprayer was consulted for cardiac clearance. Patient underwent surgery on 11/08, course was complicated by the acute postoperative blood loss anemia with hemoglobin of 8.42 days postop, primary orthopedic team ordered 1 unit of PRBC on 11/10. Patient was also noted to have worsening hyponatremia with sodium decreased from 138-126 and then to 116 requiring transfer to ICU for hypertonic saline, nephrology consulted. Urine sodium less than 20 and urine osmolality 258, cortisol not low and TSH came back normal. 11/11 hospitalist service assumed care, patient is less confused, knows that she is in the hospital, has adequate oral intake. Sodium went up from 116-124, per nephrology, patient to be started on D5 water at 150 cc/h with goal to maintain sodium level in the mid 120s today. 11/12, received 1 more dose of hypertonic swollen with sodium improvement up to 124. Per nephrology, patient to be started on 1500 fluid restriction, 1 dose of IV Lasix 20 mg provided today, serial blood work. 11/13: Received hypertonic saline overnight again, started on urea 15 mg p.o. twice daily. 11/14 downgraded to 4 S., feeling well, excited to start some physical activity, no complaints today. Plan to discharge to [facility] once sodium stabilized Pertinent positives and negatives as discussed above, a complete review of systems was performed and all other systems are negative. Vitals Signs Reviewed. Vital signs reviewed and stable with the exception of mild hypertension and tachycardia. General: Nontoxic, no distress and appears stated age. Derm: Skin warm and dry, normal coloration for ethnicity. Head: Atraumatic, normocephalic and symmetric. Eyes: EOM's intact, no lid lag, and anicteric sclera Mouth: no lip lesions, mucus membranes moist Cardiovascular: Irregularly irregular rhythm, systolic murmur, positive posterior tibial pulses bilaterally, and cap refill < 2 seconds. Lungs: Respirations even, regular, and unlabored on room air. Lungs CTA bilaterally, no rhonchi, no rales, no wheezing, and no accessory muscle usage. Abdominal: soft, nontender to palpation, no guarding, no appreciable organomegaly Ext: No gross muscle atrophy, no edema, no contractures. Movement and sensation intact. Neuro: Speech slightly slowed to response (reported chronic from previous CVA), face symmetrical and CN II-XII grossly intact with no noted focal neuro deficits Psych: Alert and oriented Data Reviewed Today: Pertinent Labs: Sodium 126, potassium 3.9, chloride 97, creatinine 0.39, glucose controlled Assessment and Plan: Acute on chronic symptomatic hypochloremic hyponatremia -Na dropped from 138-126 and then to 116 requiring transfer to ICU for hypertonic saline, nephrology consulted. Urine sodium less than 20 and urine osmolality 258, cortisol not low and TSH came back normal. -D5 and water discontinued, patient received 1 more dose of hypertonic saline 11/12 overnight, sodium every 6 hours -1500 fluid restriction -11/12 status post IV Lasix 20 once -Started on urea 15 mg p.o. twice daily -Sodium every 12 hours Status post trochanteric intramedullary nailing of right three-part intertrochanteric femur fracture Acute displaced intertrochanteric fracture of right hip -Management per orthopedic surgery team including DVT prophylaxis, pain management, wound/dressing management, weightbearing, and PT/OT. -Symptomatic care and pain management with Tylenol 650 mg every 6 hours as needed for mild pain, [place] 5/325 mg tablets every 6 hours as needed for moderate pain, and Dilaudid 0.5 mg every 4 hours as needed for severe pain. -Continue Zofran 4 mg IVP every 8 hours as needed for nausea or vomiting Acute postoperative blood loss anemia -Preoperative hemoglobin 11.3 with current postoperative hemoglobin of 8.4. No active bleeding noted. No large bruising or hematoma noted. Will continue to monitor with repeat morning labs. Patient asymptomatic and denies feeling dizziness/lightheadedness or any shortness of breath. -Posttransfusion hemoglobin 9.9, stable since Atrial fibrillation with RVR, currently rate controlled Hypertension Hyperlipidemia History of CVA with right lower extremity deficits and mild speech deficit Peripheral vascular disease -Patient with mild RVR currently with ventricular rate in 110s. -Eliquis 2.5 mg twice daily was resumed and patient to continue cardiac medication regimen with amlodipine 2.5 mg daily, atorvastatin 20 mg daily, and metoprolol 50 mg twice daily. -Patient will require continuous telemetry monitoring during preoperative, intraoperative, and postoperative period. -Cardiology following increasing metoprolol to 50 mg twice daily on 11/08/2024. DVT ppx: Eliquis Anticipated discharge place: [facility] Anticipated discharge time: Pending sodium improvement Objective - Vital Signs Vital signs: Vital Signs Temp 97.7 F 11/14/24 08:00 Pulse 74 11/14/24 09:00 Resp 17 11/14/24 09:00 BP 130/67 11/14/24 09:00 Pulse Ox 99 11/14/24 09:00 FiO2 Intake & Output 11/13/24 11/14/24 11/14/24 18:59 06:59 18:59 Intake Total 900 250 Output Total 695 2050 600 Balance -818 -8580 -350 Intake: Oral 900 250 Output: Urine 871 0 600 Other: Voiding Method Indwelling Catheter Indwelling Catheter Indwelling Catheter # Bowel Movements 1 - Labs CBC & Chem 7: 11/13/24 05:10 11/14/24 05:43 Labs: Abnormal Lab Results - Last 24 Hours (Table) 11/13/24 11/13/24 11/14/24 Range/Units 11:42 18:19 00:11 Sodium 126 L 127 L 125 L (137-145) mmol/L Chloride (98-107) mmol/L BUN (7-17) mg/dL Creatinine (0.52-1.04) mg/dL POC Glucose (mg/dL) (70-110) mg/dL Calcium (8.4-10.2) mg/dL 11/14/24 11/14/24 11/14/24 Range/Units 03:07 05:43 06:29 Sodium 125 L 126 L (137-145) mmol/L Chloride 96 L (98-107) mmol/L BUN 19 H (7-17) mg/dL Creatinine 0.39 L (0.52-1.04) mg/dL POC Glucose (mg/dL) 114 H (70-110) mg/dL Calcium 8.1 L (8.4-10.2) mg/dL
[2024-11-14 16:39] LABS: Glucose,Whole Blood 128 mg/dL (70-110)
[2024-11-14 18:54] LABS: African American GFR (CKD) >90 (>60 ml/min/1.73 sqM); Anion Gap 6 mmol/L; Blood Urea Nitrogen 13 mg/dL (7-17); Calcium 8.1 mg/dL (8.4-10.2); Carbon Dioxide 25 mmol/L (22-30); Chloride 94 mmol/L (98-107); Glucose 144 mg/dL (74-99); Non-African American GFR(CKD) 90 (>60 ml/min/1.73 sqM); Potassium 4.2 mmol/L (3.5-5.1); Sodium 125 mmol/L (137-145)
[2024-11-14 21:05] LABS: Glucose,Whole Blood 111 mg/dL (70-110)
[2024-11-15 06:08] LABS: Glucose,Whole Blood 100 mg/dL (70-110)
[2024-11-15 09:20] LABS: Blood Urea Nitrogen 20.9 mg/dL (9.0-27.0); Calcium 7.9 mg/dL (8.7-10.3); Carbon Dioxide 25.8 mmol/L (21.6-31.8); Chloride 100 mmol/L (96-109); Glucose 88 mg/dL (70-110); Potassium 4.3 mmol/L (3.5-5.5); Sodium 132 mmol/L (135-145)
[2024-11-15 11:08] LABS: Glucose,Whole Blood 131 mg/dL (70-110)
[2024-11-15 13:41] VITALS: BP 121/63; PULSE 77; RESP 16; TEMP 98
--- NOTE | 2024-11-15 13:46 | P.DS ---
Providers Date of admission: 11/07/24 12:30 Expected date of discharge: 11/15/24 Attending physician: Janet Stewart MD Consults: 11/07/24 12:44 Consult Physician Urgent Consulting Provider: Mari Scales Consult Reason/Comments: med management/IT fracture Do you want consulting provider notified?: Yes 11/07/24 13:15 Consult Physician Routine Consulting Provider: Alvin Mcgraw Consult Reason/Comments: Cardiac clearance Do you want consulting provider notified?: Yes 11/10/24 19:03 Consult Physician Routine Consulting Provider: Refugio Interiano Consult Reason/Comments: worsening hyonatremia Do you want consulting provider notified?: Yes 11/10/24 22:00 Consult Physician Routine Consulting Provider: Marquise Kohler Consult Reason/Comments: ICU management Do you want consulting provider notified?: Already Contacted Primary care physician: Andres White [facility] Course: Discharge Diagnosis: Acute on chronic symptomatic hypochloremic hyponatremia Acute displaced intertrochanteric fracture of right hip Status post trochanteric intramedullary nailing of right three-part intertrochanteric femur fracture Acute postoperative blood loss anemia Atrial fibrillation with RVR, currently rate controlled Hypertension Hyperlipidemia History of 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 She presented to the emergency department after a fall. Upon arrival to our facility, patient underwent evaluation in the emergency department. Vital signs upon arrival show blood pressure 176/90, heart rate 118, respiratory rate 18, temp 97.6 F, and SpO2 of 96% on room air. EKG was completed showing atrial fibrillation with RVR to 111 bpm. Chest x-ray completed revealing cardiomegaly but negative for acute cardiopulmonary process. X-ray right knee negative for acute fracture or dislocation. X-ray right hip showing acute displaced intertrochanteric fracture of the right hip. Labs completed and reviewed. CBC showing mild thrombocytopenia with platelet count of 146 otherwise normal findings. Coagulation profile normal finding. BMP showing hyponatremic hypochloremia with sodium of 129 and chloride of 96 otherwise normal findings. Blood glucose was elevated at 186 patient was admitted under orthopedic surgery team and we were consulted for medical clearance and medical management throughout hospitalization and sane rn was consulted for cardiac clearance. Patient underwent surgery on 11/08, course was complicated by the acute postoperative blood loss anemia with hemoglobin of 8.42 days postop, primary orthopedic team ordered 1 unit of PRBC on 11/10. Patient was also noted to have worsening hyponatremia with sodium decreased from 138-126 and then to 116 requiring transfer to ICU for hypertonic saline, nephrology consulted. Urine sodium less than 20 and urine osmolality 258, cortisol not low and TSH came back normal. 11/11 hospitalist service assumed care. Mental status improved. Sodium went up from 116-124, per nephrology, patient to be started on D5 water at 150 cc/h with goal to maintain sodium level in the mid 120s today. Patient received further hypertonic saline and then ultimately was started on urea. Sodium improved to 132 at the time of discharge. She will follow-up with orthopedic surgery, PCP and nephrology. Recommended to increase protein intake. Repeat BMP in 3 days. Patient seen and examined at bedside. Vital signs reviewed and stable. General: Nontoxic, no distress and appears stated age. Derm: Skin warm and dry, normal coloration for ethnicity., Dressing clean, dry, intact Head: Atraumatic, normocephalic and symmetric. Eyes: EOM's intact, no lid lag, and anicteric sclera Mouth: no lip lesions, mucus membranes moist Cardiovascular: Irregularly irregular rhythm, systolic murmur, positive posterior tibial pulses bilaterally, and cap refill < 2 seconds. Lungs: Respirations even, regular, and unlabored on room air. Lungs CTA bilaterally, no rhonchi, no rales, no wheezing, and no accessory muscle usage. Abdominal: soft, nontender to palpation, no guarding, no appreciable organomegaly Ext: No gross muscle atrophy, no edema, no contractures. Movement and sensation intact. Neuro: Speech slightly slowed to response (reported chronic from previous CVA), face symmetrical and CN II-XII grossly intact with no noted focal neuro deficits Psych: Alert and oriented A total of 32 minutes of time were spent preparing this complex discharge summary. Patient was discharged on 11/15/2024 at 1240. Patient Condition at Discharge: Stable Plan - Discharge Summary Discharge Rx Participant: Yes New Discharge Prescriptions: New Ferrous Sulfate [Iron (65 MG Elemental)] 325 mg PO W/LUNCH tab HYDROcodone/APAP 5-325MG [[place] 5-325] 1 each PO Q6HR PRN #10 tab PRN Reason: Pain Scale 6-8 Benzonatate [Tessalon Perles] 200 mg PO TID PRN cap PRN Reason: Cough Furosemide [Lasix] 20 mg PO DAILY #14 tab Metoprolol Tartrate [Lopressor] 75 mg PO BID tab Sennosides-Docusate Sodium [Senokot-S] 1 each PO DAILY tab Acetaminophen Tab [Tylenol] 650 mg PO Q6HR PRN tab PRN Reason: Mild Pain Or Fever > 100.5 Continue amLODIPine [Norvasc] 2.5 mg PO DAILY Atorvastatin [Lipitor] 20 mg PO DAILY Apixaban [Eliquis] 5 mg PO BID Discontinued Metoprolol Tartrate [Lopressor] 25 mg PO BID Furosemide [Lasix] 20 mg PO DAILY Discharge Medication List Apixaban [Eliquis] 5 mg PO BID 11/07/24 [History] Atorvastatin [Lipitor] 20 mg PO DAILY 11/07/24 [History] amLODIPine [Norvasc] 2.5 mg PO DAILY 11/07/24 [History] Acetaminophen Tab [Tylenol] 650 mg PO Q6HR PRN tab 11/15/24 [Rx] Benzonatate [Tessalon Perles] 200 mg PO TID PRN cap 11/15/24 [Rx] Ferrous Sulfate [Iron (65 MG Elemental)] 325 mg PO W/LUNCH tab 11/15/24 [Rx] Furosemide [Lasix] 20 mg PO DAILY #14 tab 11/15/24 [Rx] HYDROcodone/APAP 5-325MG [[place] 5-325] 1 each PO Q6HR PRN #10 tab 11/15/24 [Rx] Metoprolol Tartrate [Lopressor] 75 mg PO BID tab 11/15/24 [Rx] Sennosides-Docusate Sodium [Senokot-S] 1 each PO DAILY tab 11/15/24 [Rx] Follow up Appointment(s)/Referral(s): Yue Larose MD [STAFF PHYSICIAN] - 1 Week Link Cochran PAC [PHYSICIAN CYANIDE FURNACE OPERATOR] - 11/25/24 10:10 am Andres White MD [Primary Care Provider] - 1-2 days Patient Instructions/Handouts: Hyponatremia (DC) Activity/Diet/Wound Care/Special Instructions: Orthopedic Discharge Instructions: 1. Wound care and infection precautions, keep incision dry and covered while showering, no lotions, creams, moisturizers. No soaking, pools, hot tubs. Do not scrub over incision. 2. 50% weight-bearing right lower extremity with walker until follow-up. Weightbearing as tolerated left lower extremity 3. Ice and elevate when necessary. Do not exceed 20 minutes per hour with ice pack. 4. Utilize compression sleeve until seen at first follow up appointment. 5. Pain meds and anticoagulants per prescription. 6. Pain medication has potential to cause constipation. Increase oral fluid and fiber intake. Contact primary care provider if you have not had a bowel movement within 48 hours after discharge. 7. No anti-inflammatory medication until discussed at first post operative visit, this including Motrin, Aleve, Mobic, Diclofenac. 8. Follow up in office at 2 weeks postop with Ankur Chavira PA-C / Link Cochran PA-C 9. Follow up with your primary care doctor 7-10 days after discharge. 10. Contact [facility] with any questions, . Keep incision clean, dry, intact. While showering, cover incision with Saran wrap. Keep tape on until follow-up planned in office in 2 weeks. Ensure protein shake three times daily. If unable to get Urea, get BMP in 3 days. Follow up with Dr. Larose in 1 week. Discharge Disposition: TRANSFER TO SNF/ECF
--- NOTE | 2024-11-15 13:52 | P.PN ---
Subjective Patient is seen for follow-up for hyponatremia. Status post 3% saline Sodium is 132 today. Also maintained on urea Urine osmolality was 258 and random urine sodium of less than 20. Objective - Vital Signs Vital signs: Vital Signs Temp 98.0 F 11/15/24 13:41 Pulse 77 11/15/24 13:41 Resp 16 11/15/24 13:41 BP 121/63 11/15/24 13:41 Pulse Ox 96 11/15/24 13:41 FiO2 Intake & Output 11/14/24 11/15/24 11/15/24 18:59 06:59 18:59 Intake Total 490 490 Output Total 1300 1825 Balance -810 -1335 Intake: Oral 490 490 Output: Urine 1300 1825 Other: Voiding Method Indwelling Catheter Indwelling Catheter # Bowel Movements 1 - Exam Patient is awake, comfortable, no acute distress Examination of the heart S1 and S2 Examination of the lungs bilateral breath sounds are heard Abdomen is soft nontender Examination lower extremities shows no significant edema MEDICAL RECORD CODER exam grossly intact - Labs CBC & Chem 7: 11/13/24 05:10 11/15/24 03:50 Labs: Abnormal Lab Results - Last 24 Hours (Table) 11/14/24 11/14/24 11/14/24 Range/Units 16:37 18:14 18:14 Sodium 125 L 125 L (137-145) mmol/L Chloride 94 L (98-107) mmol/L Creatinine 0.45 L (0.52-1.04) mg/dL BUN/Creatinine Ratio (12.00-20.00) Ratio Glucose 144 H (74-99) mg/dL POC Glucose (mg/dL) 128 H (70-110) mg/dL Calcium 8.1 L (8.4-10.2) mg/dL 11/14/24 11/15/24 11/15/24 Range/Units 21:04 00:11 03:50 Sodium 124 L 132 L (137-145) mmol/L Chloride (98-107) mmol/L Creatinine 0.5 L (0.52-1.04) mg/dL BUN/Creatinine Ratio 41.80 H (12.00-20.00) Ratio Glucose (74-99) mg/dL POC Glucose (mg/dL) 111 H (70-110) mg/dL Calcium 7.9 L (8.4-10.2) mg/dL 11/15/24 Range/Units 11:07 Sodium (137-145) mmol/L Chloride (98-107) mmol/L Creatinine (0.52-1.04) mg/dL BUN/Creatinine Ratio (12.00-20.00) Ratio Glucose (74-99) mg/dL POC Glucose (mg/dL) 131 H (70-110) mg/dL Calcium (8.4-10.2) mg/dL Assessment and Plan Assessment: 1. Hyponatremia associated with poor solute intake status post 3% saline. Maintained on urea. Serum sodium of 132 today. 2. Status post fall with right femoral fracture status post trochanteric nailing on 11/08/2024 3. Benign hypertension, controlled Plan: Okay to discharge patient Continue with urea Advised to increase oral protein intake Follow-up in the office in 1 week Resume home dose of oral Lasix Repeat labs in 2 to 3 days post discharge.
--- NOTE | 2024-11-15 18:28 | P.PN ---
Subjective Progress Note Date: 11/15/24 Progress Note Date: 11/14/24 Patient is an 89 year old female with past medical history of atrial fibrillation, CVA/TIA, presented to the ED on 11/07/24 after a fall while trying to get in her car to go home from [employer]. She was diagnosed with a displaced right intertrochanteric femur fracture and underwent Trochanteric intramedullary nailing on 11/08/24. After the surgery her blood pressure was reported to be on the lower side. A day after her surgery her Hb 9.7 and Na was dropping. Initially the sodium improved with IV fluids. She denied any symptoms of dizzi ness or lightheadedness. Last night her Na dropped to 117 and her Hb 8.4. She received 1 unit of PRBC. She was put on seizure precautions and moved to the ICU. She was started on 3% Normal saline drip overnight. In the morning her Na improved to 124 and 3% NS was discontinued. Today she is resting comfortably on 2L of oxygen. Vital signs are stable with blood pressure at 129/62. Denies any acute complains. Labs today show WBC 8.3, hemoglobin 9.9, sodium 124, creatinine 0.47, calcium 7.7, total bilirubin 1.5, AST 55, total protein 4.7. Cortisol 20.9, urine osmolality 258, urine random sodium less than 20, TSH 2.62. Chest x-ray done today shows COPD changes with similar scattered reticular opacities which may represent pulmonary fibrotic changes versus atypical pneumonia. Cepheid 4 Plex is negative. 11/12/24: Patient seen and examined at bedside today. She remains in the ICU. She is on 3.5L of oxygen and is saturating at 95%. She denies any acute complains. Last night her Na dropped down to 118 and she was started on 3% hypertonic saline which was discontinued 2:40am this morning. Yesterday she was started on D5W which is also discontinued. Labs today show WBC 8.1, hemoglobin 10.2, sodium 122, potassium 3.9, creatinine 0.45, calcium 7.7. 11/13/24: Patient evaluated at bedside. She continues to be in the ICU as she was downgraded to 3S and then re-upgraded to ICU yesterday. She is currently on 3L of oxygen via nasal cannula. Denies any acute complains. She received Furosemide 20 mg yesterday. She was also placed on 3% hypertonic saline drip last night for 4 hours. She is currently on 1500cc fluid restriction and started on Urea tablets. Currently not on any drips. Labs today show WBC 9.8, hemoglobin 10.3, sodium 125, chloride 97, BUN 29, creatinine 0.44, calcium 7.8. The patient is seen today November 14, 2024 in follow-up in the intensive care unit. She is currently sitting up in bed. Awake and alert in no acute distress. Maintaining good O2 saturations in the 90s on 2 L/min per nasal cannula. She has been off the 3% normal saline. Current sodium 126. No IV fluids. Remains on a 1500 mL fluid restriction. Potassium 3.9. Bicarb 25. BUN 19. Creatinine 0.39. Glucose 96. She remains afebrile. Hemodynamically stable. Continued on DuoNeb inhalations as needed. Anticoagulated with Eliquis. On 11/15/2024, the patient is being seen for a follow-up. Patient is doing well. No specific complaints. She is alert and oriented. She is communicating. Sodium levels improved. The patient was treated for symptomatic hyponatremia and the most recent blood work showed a sodium level of 132. BUN is 20 with a creatinine of 0.5. The patient's surgical wound site is clean. She had a right intertrochanteric femur fracture and the patient underwent intramedullary nailing on 11/08/2024. The patient denies having any pain. No specific complaints. The patient is looking for to be discharged today. Noted her course was also complicated by postoperative blood loss anemia and atrial fibrillation with RVR and rate is controlled for now. The patient is to be discharged with [place], oral iron supplements, metoprolol 75 mg p.o. twice daily and anticoagulation with Eliquis. Objective - Vital Signs Vital signs: Vital Signs Temp 98.2 F 11/15/24 07:09 Pulse 89 11/15/24 07:09 Resp 15 11/15/24 07:09 BP 124/74 11/15/24 07:09 Pulse Ox 96 11/15/24 07:09 FiO2 Intake & Output 11/14/24 11/15/24 11/15/24 18:59 06:59 18:59 Intake Total 490 490 Output Total 1300 1825 Balance -810 -1335 Intake: Oral 490 490 Output: Urine 1300 1825 Other: Voiding Method Indwelling Catheter Indwelling Catheter # Bowel Movements 1 - Exam GENERAL EXAM: Revealed an 89 year-old female sitting up in bed, comfortable, on room air oxygen HEAD: Normocephalic and atraumatic EYES: Normal reaction of pupils, equal size. NOSE: Clear with pink turbinates. THROAT: No erythema or exudates. NECK: No masses, no JVD. CHEST: No chest wall deformity. LUNGS: Crackles at the bases bilaterally persist. CVS: Irregularly irregular rhythm ABDOMEN: Soft, nontender, no rebound no guarding SKIN: No rashes CENTRAL NERVOUS SYSTEM: Speech slightly slowed to response (reported chronic from previous CVA) Extremities: Dressing to the right hip may remains clean and dry. Pulses palpable. - Labs CBC & Chem 7: 11/13/24 05:10 11/15/24 03:50 Labs: Abnormal Lab Results - Last 24 Hours (Table) 11/14/24 11/14/24 11/14/24 Range/Units 16:37 18:14 18:14 Sodium 125 L 125 L (137-145) mmol/L Chloride 94 L (98-107) mmol/L Creatinine 0.45 L (0.52-1.04) mg/dL BUN/Creatinine Ratio (12.00-20.00) Ratio Glucose 144 H (74-99) mg/dL POC Glucose (mg/dL) 128 H (70-110) mg/dL Calcium 8.1 L (8.4-10.2) mg/dL 11/14/24 11/15/24 11/15/24 Range/Units 21:04 00:11 03:50 Sodium 124 L 132 L (137-145) mmol/L Chloride (98-107) mmol/L Creatinine 0.5 L (0.52-1.04) mg/dL BUN/Creatinine Ratio 41.80 H (12.00-20.00) Ratio Glucose (74-99) mg/dL POC Glucose (mg/dL) 111 H (70-110) mg/dL Calcium 7.9 L (8.4-10.2) mg/dL 11/15/24 Range/Units 11:07 Sodium (137-145) mmol/L Chloride (98-107) mmol/L Creatinine (0.52-1.04) mg/dL BUN/Creatinine Ratio (12.00-20.00) Ratio Glucose (74-99) mg/dL POC Glucose (mg/dL) 131 H (70-110) mg/dL Calcium (8.4-10.2) mg/dL Assessment and Plan Plan: Symptomatic hyponatremia, secondary to poor solute intake, recovered and the sodium level is normalized Normocytic Anemia, post op anemia vs Iron deficiency anemia, S/p 1 unit PRBC on 11/10/24, currently on oral iron Displaced Right intertrochanteric femur fracture S/p trochanteric intramedullary nailing on 11/08/24 Atrial fibrillation with RVR, Cardiology is following, rate is controlled and the patient is currently on a combination of metoprolol and anticoagulation with Eliquis Hypertension Hyperlipidemia History of CVA Plan: Patient is on room air oxygen Sodium level is normalized Patient is on a combination of metoprolol and anticoagulation with Eliquis Pain is under adequate control Increase her activity as tolerated Likely discharge home today.
--- NOTE | 2024-11-18 14:55 | CDI ---
Documentation Clarification Form Date: 11/18/2024 02:11:08 PM From: Amy Lopez RN, CCDS Email: [email or web address] Admit Date: 11/07/2024 12:30:00 PM Patient Name: Carmen Merrill Visit Number: [id number] Discharge Date: 11/15/2024 04:06:00 PM ATTENTION: The Clinical Documentation Specialists (CDI) and [facility] Coding Staff appreciate your assistance in clarifying documentation. Please respond to the clarification below the line at the bottom and electronically sign. The CDI & [facility] Coding staff will review the response and follow-up if needed. Please note: Queries are made part of the Legal Health Record. If you have any questions, please contact the author of this message via ITS. Doctor Janet Stewart The patient had confusion, progressive drop in Na level and was transferred to the ICU. Based on this information and the findings below, is there an additional diagnosis that is clinically appropriate for this patient? Patient history/risk factors: A fib, chronic hyponatremia and CVA/TIA. Presented to the ED after a fall. Admitted with displaced right intertrochanteric femur fracture, s/p intramedullary nailing. Also found to be hyponatremic. Clinical Indicators: 11/07 Na: 129 11/09 Na: 130 11/10 Na: 116-117 11/11 Na: 117-124 11/11 Nephrology consult: "Patient sodium level on admission November 07, 2024 was 129 and improved to 130 on November 09. Since then was progressively starting to drop and came down to 116 as of November 11 at 2 AM. Patient was noted to be more confused and was transferred to the ICU and received 3% saline overnight. Acute symptomatic hyponatremia secondary to poor solute intake and component of SIADH." 11/11 IM: "patient is less confused, knows that she is in the hospital, has adequate oral intake. Sodium went up from 116-124. Per Nephrology, patient to be started on D5 water at 150 cc/h with goal to maintain sodium level in the mid 120s today." Treatment: ICU monitoring starting on 11/11; D5W @150mL/hr 11/11; 500ml of 3% Saline 3% hypertonic IVF at 25mL/hr on 11/10; 500ml of 3% Saline 3% hypertonic IVF at 30mL/hr on 11/11; 500ml of 3% Saline 3% hypertonic IVF at 25mL/hr on 11/13 Is there an additional diagnosis that is clinically appropriate for this patient? [ x ] Metabolic encephalopathy due to hyponatremia [ ] No additional diagnosis/Not clinically significant [ ] Unable to determine [ ] Other, please specify MTDD
== END 2024-11-15 16:06 | DRG 480 ==
LOC: EC 11:10 → 4SSUR 12:30 → 2SICU 11-10 22:31 → 4SSUR 11-14 10:34
PROVIDERS: ADMIT Student in an Organized Health Care Education/Training Program; ATTEND Student in an Organized Health Care Education/Training Program
PROC: 0QH636Z Insertion of Intramedullary Internal Fixation Device into Right Upper Femur, Percutaneous Approach (ICD-10-PCS; principal; 2024-11-08 09:00)
PROC: 30233N1 Transfusion of Nonautologous Red Blood Cells into Peripheral Vein, Percutaneous Approach (ICD-10-PCS; 2024-11-10)
DX: S72.141A Displaced intertrochanteric fracture of right femur, initial encounter for closed fracture (principal); G93.41 Metabolic encephalopathy; E22.2 Syndrome of inappropriate secretion of antidiuretic hormone; D69.6 Thrombocytopenia, unspecified; I69.341 Monoplegia of lower limb following cerebral infarction affecting right dominant side; I08.1 Rheumatic disorders of both mitral and tricuspid valves; I10 Essential (primary) hypertension; I73.9 Peripheral vascular disease, unspecified; I48.19 Other persistent atrial fibrillation; D62 Acute posthemorrhagic anemia; I69.328 Other speech and language deficits following cerebral infarction; E78.5 Hyperlipidemia, unspecified; R73.9 Hyperglycemia, unspecified; R33.9 Retention of urine, unspecified; R15.9 Full incontinence of feces; E87.8 Other disorders of electrolyte and fluid balance, not elsewhere classified; Z79.01 Long term (current) use of anticoagulants; Z79.899 Other long term (current) drug therapy; W01.0XXA Fall on same level from slipping, tripping and stumbling without subsequent striking against object, initial encounter; Y92.481 Parking lot as the place of occurrence of the external cause
CPT/HCPCS: 36415; 51702; 71045; 73502; 80048; 80053; 82533; 83036; 83540; 83550; 83735; 83880; 83935; 84145; 84295; 84300; 84443; 85025; 85027; 85610; 85730; 86850; 86870; 86880; 86900; 86901; 86920; 87636; 93005; 94640; 94760; 96374; 96375; 99285